=== PATIENT | male | born 1935 | race Caucasian/White ===

== ENCOUNTER 2020-04-22 21:30 | Emergency (ER) | payer MEDICARE, SELFPAY ==
[2020-04-22] VITALS (8 sets, daily range): BP systolic 101–123; BP diastolic 64–68; PULSE 94–98; RESP 16–22; TEMP 37.1–38.7; O2SAT 93–96
--- NOTE | ~2020-04-22 | XR_ITS ---
EXAMINATION: XR chest 1V portable DATE: 04/22/2020 23:03 INDICATION: Fever and chills. TECHNIQUE: A single frontal view of the chest was obtained. COMPARISON: Chest 2 views 07/14/2019, CT abdomen and pelvis 10/31/2019, chest CT 07/14/2019 FINDINGS: There is no pneumonia, pleural effusion, or pneumothorax. Cardiomegaly is noted. Surgical c lips overlie the mediastinum. IMPRESSION: 1. Cardiomegaly. Reviewed, dictated and finalized at location A. IMPRESSION: 1. Cardiomegaly.
--- NOTE | 2020-04-22 22:33 | ED.FEVER ---
HPI - Fever General Chief Complaint: Fever Stated Complaint: Shaking Time Seen by Provider: 04/22/20 22:26 Source: RN notes reviewed History of Present Illness HPI Narrative: Patient presents emergency department from home for shaking. Patient states that this afternoon prior to arrival he began to shake. States is unable to control the shakes and called EMS when EMS initially arrived the patient did not have a fever over the patient did experience a fever in the emergency department. He states he felt fine earlier today he denies any complaints at this time denies any chest pain shortness of breath cough abdominal pain nausea vomiting diarrhea or any other symptoms Related Data Home Medications Medication Instructions Recorded Confirmed amiodarone 200 mg tablet 200 mg PO DAILY 10/03/19 furosemide 40 mg tablet 40 mg PO QAM 10/03/19 insulin glargine 100 unit/mL (3 20 unit SUB-Q DAILY 10/03/19 mL) subcutaneous pen metolazone 2.5 mg tablet 2.5 mg PO DAILY 10/03/19 metoprolol succinate 25 mg 25 mg PO DAILY 10/03/19 tablet,extended release 24 hr insulin glargine [Basaglar KwikPen unit SUBCUT 04/22/20 04/22/20 U-100 Insulin] warfarin 04/22/20 Allergies Allergy/AdvReac Type Severity Reaction Status Date / Time albuterol Allergy Unknown Unknown Verified 04/22/20 22:05 Review of Systems Review of Systems: Narrative: Gen.: see HPI Eyes: Denies eye pain or visual change ENT: Denies congestion Respiratory: Denies shortness of breath or cough CV: Denies chest pain or palpitations GI: Denies abdominal pain nausea, emesis or diarrhea denies burning, urgency, frequency or hematuria Musculoskeletal: Denies back pain or muscle pain Neuro: Denies numbness, tingling, weakness or focal weakness Skin: Denies rash Except as documented, all other systems reviewed and negative [facility] Past Medical History Medical History (Updated 04/23/20 @ 02:22 by Hernán Haywood DO) CHF (congestive heart failure) Chronic kidney disease, stage 4 (severe) Essential (primary) hypertension Surgical History Surgical History History of back surgery Social History Social History Smoking status: Former smoker Alcohol intake: never Exam Narrative: Exam Narrative: APPEARANCE: No acute distress, nontoxic, resting in bed EYES: EOMI HEENT: Normocephalic, atraumatic, OMM RESPIRATORY: No respiratory distress Clear to auscultation bilaterally with no rhonchi wheezing or rales. CARDIOVASCULAR: Regular rate and rhythm without murmurs rubs or gallops. ABDOMINAL: Soft, nontender, nondistended, no rebound or guarding MUSCULOSKELETAl: Moves all extremities. No clubbing, cyanosis or edema. NEURO: Awake and alert. Following commands, speech normal, no focal deficits SKIN:: Warm, dry. 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 Patient with creatinine of 3.2 in 2018 : Discussed with Dr. Mcgee for Dr. Aguilar agrees with plan for discharge with follow-up as an outpatient agrees with plan for COVID swab Discussed with patient results of workup and diagnosis. Discussed need for follow-up with primary care, proper use of medication, and reasons to return to the emergency department. Patient understands and agrees to current treatment plan Vital Signs Vital signs: Vital Signs Temperature 100.5 F H 04/22/20 21:46 Pulse Rate 94 04/22/20 21:46 Respiratory Rate 16 04/22/20 21:46 Blood Pressure 123/68 04/22/20 21:46 Pulse Oximetry 94 04/22/20 21:46 Temperature 98.8 F 04/23/20 00:47 Pulse Rate 96 04/23/20 00:02 Respiratory Rate 14 04/23/20 00:02 Blood Pressure 112/57 L 04/23/20 00:01 Pulse Oximetry 95 04/23/20 00:02 MDM - Fever MDM Narrative Medical decision making narrative: Patient with chills at home developed fever in ER
[2020-04-22 23:01] LABS: Basophils Absolute Auto 0.1 K/mm3 (0.0-0.1); Basophils Percent Auto 0.4 % (0.2-1.2); Eosinophils Absolute Auto 0.1 K/mm3 (0-0.3); Eosinophils Percent Auto 0.8 % (0-4.4); Hematocrit 36.1 % (42.0-52.0); Hemoglobin 11.9 g/dL (14.0-18.0); Immature Granulocyte Absolute 0.07 K/mm3 (0.00-0.031); Immature Granulocyte Percent A 0.5 % (0-0.5); Lymphocytes Absolute Auto 1.41 K/mm3 (0.9-3.2); Lymphocytes Percent Auto 9.8 % (18.3-44.2); Mean Corpuscular Hemoglobin 32.7 pg (26-34); Mean Corpuscular Volume 99.2 fl (80-100); Mean Platelet Volume 10.9 fl (7.4-10.4); Monocytes Percent Auto 7.1 % (2.6-8.5); Neutrophils Absolute Auto 11.7 K/mm3 (1.3-6.7); Neutrophils Percent Auto 81.4 % (45.5-73.1); Platelet Count Result 328 k/mm3 (150-375); Red Blood Count 3.64 M/mm3 (4.6-6.20); Red Cell Distribution Width 14.7 % (11.5-14.5); White Blood Count 14.4 K/mm3 (4.5-10.0)
[2020-04-22 23:12] LABS: INR 2.9; Prothrombin Time 29.8 Seconds (11.1-14.7)
[2020-04-22 23:13] LABS: Lactic Acid Reflex 1.7 mmol/L (0.7-2.1)
[2020-04-22 23:13] LABS: Alanine Aminotransferase 15 U/L (4-50); Albumin Level 4.7 g/dL (3.5-5.1); Alkaline Phosphatase 92 U/L (38-126); Aspartate Amino Transferase 27 U/L (17-59); Bilirubin,Total 0.5 mg/dL (0.2-1.3); Blood Urea Nitrogen 56 mg/dL (9-20); Calcium 9.3 mg/dL (8.4-10.2); Carbon Dioxide 27 mmol/L (22-30); Chloride 99 mmol/L (98-107); Estimated CRCL calculation 19 ml/min; Estimated Glomerular Filt Rate 19; Glucose 154 mg/dL (75-110); Partial Thromboplastin Time 53.3 SECONDS (22.3-36.8); Potassium 3.9 mmol/L (3.4-5.0); Sodium 139 mmol/L (137-145)
--- NOTE | 2020-04-22 23:25 | PC.NURSE ---
Received bedside report from CHACHO Abbott. Assuming care of patient at this time. Patient a/ox3 refusing catheter at this time. Patient unable to provide a urine specimen at this time. Patient given urinal.
[2020-04-22] MEDS: SODIUM CHLORIDE 0.9% IV 1,000 ML 999 ML IV CONT (23:45)
[2020-04-23 00:01] VITALS: BP 112/57; O2SAT 96
[2020-04-23 00:02] VITALS: PULSE 96; RESP 14; O2SAT 95
[2020-04-23 00:47] VITALS: TEMP 37.1
[2020-04-23 00:50] LABS: Add Urine Microscopic? NO; Appearance Urine Clear (Clear); Bilirubin Urine Negative (Negative); Blood Urine Negative (Negative); Color Urine Straw (Yellow); Glucose Urine UA Negative (Negative); Ketones Urine Negative (Negative); Leukocyte Esterase Ur Negative LEU/UL (Negative); Nitrate Urine Negative (Negative); Protein Urine Negative (Negative); Specific Grav Ur 1.013 (1.001-1.035); Urobilinogen Urine Negative mg/dL (<2.0)
[2020-04-23 00:51] LABS: Bacteria Urine Trace /hpf; Mucus Urine Rare /lpf; RBC Urine 0-2 /hpf (0-2); Squamous Epithelial Cell Urine Rare /hpf (Few); WBC Urine 0-3 /hpf
[2020-04-23 02:50] VITALS: BP 105/67; PULSE 80; RESP 16; O2SAT 97
[2020-04-23 09:48] LABS: SARS-CoV-2 RNA PCR Negative
== END 2020-04-23 02:53 | disposition home or self-care (01) ==
PROVIDERS: Emergency Provider Emergency Medicine; PCP Family Medicine
DX: R50.9 Fever, unspecified (principal); Z20.828 Contact with and (suspected) exposure to other viral communicable diseases; I13.0 Hypertensive heart and chronic kidney disease with heart failure and stage 1 through stage 4 chronic kidney disease, or unspecified chronic kidney disease; N18.4 Chronic kidney disease, stage 4 (severe); I50.9 Heart failure, unspecified; Z79.01 Long term (current) use of anticoagulants; Z79.4 Long term (current) use of insulin
CPT/HCPCS: 36415; 71045; 80053; 81003; 83605; 85025; 85610; 85730; 87040; 87635; 96361; 96374; 99284; C9803; J0131; J7030; U0003

== ENCOUNTER 2020-08-28 15:39 | Outpatient (CLI) | payer MEDICARE, SELFPAY ==
--- NOTE | ~2020-08-28 | CT_ITS ---
EXAMINATION: CT chest wo con EXAM DATE: 08/28/2020 16:03 INDICATION: Ascending aortic aneurysm. TECHNIQUE: Spiral CT of the chest without contrast. Axial, coronal and sagittal images were reviewe d. Coronal maximum intensity pixel images of chest reviewed. The dose-length product (DLP) for this examination was 478.72 mGy-cm. The exposure was tailored according to patient size (auto mA exposur e control), and iterative reconstruction (ASIR) was used as additional dose reduction technique. Comp arison is made to prior examination from 07/14/2019. FINDINGS: The ascending aorta measures 4.6 x 4.5 cm as measured at the pulmonary outflow tract, not significantly changed. No suspicious lung opacities. There are no pleural or pericardial effusions. Tracheobronchial tree is patent. There is no mediastinal, hilar or axillary lymphadenopathy. The re is no pneumothorax. Heart normal in size. There are dense coronary arteries, could be severe c oronary arterial sclerosis and/or coronary artery stent(s), which are difficult to distinguish due to cardiac motion on this non-gated exam. Correlate with cardiac history and consider cardiology consul t if not recently evaluated. Lungs are moderately hyperinflated. No acute airspace disease. Multiple renal cysts, hemorrhagic cysts. Cholelithiasis. Upper abdomen is unremarkable. There is mild thora cic spondylosis without osteoblastic or osteolytic lesions identified. IMPRESSION: 1. Stable 4.6 cm ascending aortic aneurysm. 2. Moderate hyperinflation. Reviewed, dictated and finalized at location B.
== END 2020-08-28 15:40 | disposition home or self-care (01) ==
LOC: ANHIMG 15:47
PROVIDERS: PCP Family Medicine; Visit Provider Internal Medicine Cardiovascular Disease
DX: I71.2 Thoracic aortic aneurysm, without rupture (principal); R91.8 Other nonspecific abnormal finding of lung field
CPT/HCPCS: 71250

== ENCOUNTER 2020-10-05 21:07 | Emergency (ER) | payer MEDICARE, SELFPAY ==
--- NOTE | ~2020-10-05 | CT_ITS ---
EXAMINATION: CT abdomen pelvis wo con DATE: 10/05/2020 22:29 INDICATION: Right flank pain TECHNIQUE: Computed tomography (CT) of the abdomen and pelvis was performed without intravenous contr ast. Automated exposure control and iterative reconstruction technique were employed. Exam dose: 110 8.40 mGy-cm total exam DLP. COMPARISON: 10/27/2019 CT abdomen pelvis 10/08/2015 CT abdomen pelvis FINDINGS: The lung bases are clear of consolidation. No pleural effusion. Cardiomegaly. Extensive coronary artery calcifications. No pericardial effusion. Cholelithiasis. No gallbladder wall thickening or pericholecystic fluid or stranding. No hepatic, spl enic, pancreatic or adrenal suspicious mass. Multiple bilateral probable renal cysts, some of higher attenuation, suggesting hemorrhagic or protei naceous content. These are relatively stable since 11/10/2019, with the exception of the uppermost ri ght renal lesion containing some higher attenuation internal density, possibly due to interval hemorr shannan. This is overall is diminished in size since 10/08/2015. Consider CT follow-up examination in 6 months.. There is extensive calcification of the abdominal aorta and calcification at the origins of the geovanna c and superior mesenteric and renal arteries as well as prominent iliac and femoral artery calcificat ion. No abdominal aortic aneurysm. There is prostate enlargement and calcification. The urinary bladder is unremarkable. No urinary trac t calculus or hydroureteronephrosis. Diverticulosis of the colon; no CT evidence of diverticulitis. No bowel obstruction, bowel wall thick ening, pneumatosis or intraperitoneal free air. There is a fat-containing umbilical hernia. Degenerative change of the thoracic and lumbar spine. No suspicious osteolytic or osteoblastic lesion s are noted. IMPRESSION: Cholelithiasis Multiple probably stable bilateral probable renal cysts, not significantly changed since 10/27/2019 ex cept for possible hematoma within an upper pole right renal cyst. Consider [address] abdomen pelvis follow-up. Prostate enlargement and calcification Diverticulosis of the colon; no CT evidence of diverticulitis Reviewed, dictated and finalized at [facility]. Reviewed, dictated and finalized at location A. PING ROOM HELPER IMPRESSION: Cholelithiasis Multiple probably stable bilateral probable renal cysts, not significantly forbes ged since 10/27/2019 except for possible hematoma within an upper pole right yenifer al cyst. Consider [address] abdomen pelvis follow-up. Prostate enlargement and calcification Diverticulosis of the colon; no CT evidence of diverticulitis
[2020-10-05 21:30] VITALS: BP 126/71; PULSE 62; RESP 17; TEMP 36.8; O2SAT 94
--- NOTE | 2020-10-05 21:45 | ED.BACK ---
HPI - Back Pain/Injury General Chief Complaint: Back Pain/Injury Stated Complaint: flank pain Time Seen by Provider: 10/05/20 21:26 History of Present Illness HPI Narrative: right flank pain radiating to the right scapula for the past couple of hours. Made worse by bumps in the car. Was severe, but has improved significantly at this time. No associated symptoms. He has had prior kidney stones, this feels different. No nausea, vomiting, fever, cough, SOB, CP. Related Data Home Medications Medication Instructions Recorded Confirmed amiodarone 200 mg tablet 100 mg PO DAILY tablet 04/27/20 metolazone 2.5 mg tablet 2.5 mg PO .twice weekly tablet 04/27/20 metoprolol succinate 25 mg 25 mg PO Q12H tablet 04/27/20 tablet,extended release 24 hr warfarin 1 mg tablet 6 mg PO tablet 04/27/20 warfarin 1 mg tablet 7 mg PO 3XW tablet 04/27/20 Allergies Allergy/AdvReac Type Severity Reaction Status Date / Time amoxicillin Allergy Mild Rash Verified 04/27/20 13:33 albuterol Allergy Unknown Unknown Verified 04/22/20 22:05 Review of Systems Review of Systems: All systems reviewed & are unremarkable except as noted in HPI and below Constitutional: Constitutional: Denies fever(s) Cardiovascular: Cardiovascular: Denies chest pain Respiratory: Respiratory: Denies cough and Denies dyspnea Gastrointestinal: Gastrointestinal: Denies constipation, Denies diarrhea, Denies nausea and Denies vomiting Genitourinary: Genitourinary: Denies hematuria, Denies dysuria and Reports urinary frequency Neurologic: Denies numbness and Denies weakness [facility] Past Medical History Medical History (Updated 10/06/20 @ 00:11 by Edward Morton MD) CHF (congestive heart failure) Chronic kidney disease, stage 4 (severe) Essential (primary) hypertension Surgical History Surgical History History of back surgery Family History Family History Sibling Diabetes mellitus Mother Family history of Alzheimer's disease Family history of pancreatic cancer Other Family history of kidney stones Social History Social History Smoking status: Never smoker Alcohol intake: never Exam Const: General: no acute distress and alert Orientation/consciousness: patient oriented x3 HENMT: Head: normal to inspection Resp: Effort & Inspection: normal respiratory effort Auscultation: clear to auscultation bilaterally Cardio: Rate: regular rate Rhythm: regular rhythm GI: GI Palp: Yes Soft to palpation and No Tenderness to palpation present (GI) : General: Yes no CVA tenderness Skin: General skin exam: normal color Neuro: General: patient oriented x3 and moves all extremities Speech: normal speech Extrem: General: normal to inspection Course Vital Signs Vital signs: Vital Signs Temperature 36.8 C 10/05/20 21:30 Pulse Rate 62 10/05/20 21:30 Respiratory Rate 17 10/05/20 21:30 Blood Pressure 126/71 10/05/20 21:30 Pulse Oximetry 94 10/05/20 21:30 Temperature 36.8 C 10/05/20 21:30 Pulse Rate 64 10/06/20 00:34 Respiratory Rate 15 10/06/20 00:34 Blood Pressure 130/81 10/06/20 00:34 Pulse Oximetry 95 10/06/20 00:34 MDM - Back Pain/Injury MDM Narrative Medical decision making narrative: Labs at baseline. Stones in gall bladder without other findings to suggest acute disease. Could be the source of pain, but not certain. No other findings to explain his pain Medical Records Attestation: I reviewed the patient's medical records. Lab Data Attestation: I reviewed the patient's lab results. Result diagrams: 10/05/20 22:13 10/05/20 22:13 Labs: Lab Results 10/05/20 10/05/20 10/05/20 Range/Units 22:13 22:13 23:23 WBC 9.0 (4.5-10.0) K/mm3 RBC 3.46 L (4.6-6.20) M/mm3 Hgb 11.6 L
[2020-10-05 22:26] LABS: Basophils Absolute Auto 0.1 K/mm3 (0.0-0.1); Basophils Percent Auto 0.9 % (0.2-1.2); Eosinophils Absolute Auto 0.2 K/mm3 (0-0.3); Hematocrit 34.1 % (42.0-52.0); Hemoglobin 11.6 g/dL (14.0-18.0); Immature Granulocyte Absolute 0.03 K/mm3 (0.00-0.031); Immature Granulocyte Percent A 0.3 % (0-0.5); Lymphocytes Absolute Auto 1.82 K/mm3 (0.9-3.2); Lymphocytes Percent Auto 20.3 % (18.3-44.2); Mean Corpuscular Hemoglobin 33.5 pg (26-34); Mean Corpuscular Volume 98.6 fl (80-100); Mean Platelet Volume 10.2 fl (7.4-10.4); Monocytes Absolute Auto 0.7 K/mm3 (0.1-0.6); Neutrophils Absolute Auto 6.1 K/mm3 (1.3-6.7); Neutrophils Percent Auto 68.5 % (45.5-73.1); Platelet Count Result 315 k/mm3 (150-375); Red Blood Count 3.46 M/mm3 (4.6-6.20); Red Cell Distribution Width 14.7 % (11.5-14.5)
[2020-10-05 22:36] LABS: Alanine Aminotransferase 15 U/L (4-50); Albumin Level 4.4 g/dL (3.5-5.1); Alkaline Phosphatase 85 U/L (38-126); Anion Gap 11 mmol/L (8-16); Aspartate Amino Transferase 29 U/L (17-59); Bilirubin,Total 0.3 mg/dL (0.2-1.3); Blood Urea Nitrogen 51 mg/dL (9-20); Carbon Dioxide 28 mmol/L (22-30); Chloride 102 mmol/L (98-107); Estimated CRCL calculation 21 ml/min; Estimated Glomerular Filt Rate 22; Glucose 122 mg/dL (75-110); Potassium 4.1 mmol/L (3.4-5.0); Sodium 141 mmol/L (137-145)
[2020-10-05 23:59] LABS: Add Urine Microscopic? NO; Appearance Urine Clear (Clear); Bilirubin Urine Negative (Negative); Blood Urine Negative (Negative); Color Urine Straw (Yellow); Glucose Urine UA Negative (Negative); Ketones Urine Negative (Negative); Leukocyte Esterase Ur Negative LEU/UL (Negative); Nitrate Urine Negative (Negative); Protein Urine Negative (Negative); Specific Grav Ur 1.014 (1.001-1.035); Urobilinogen Urine Negative mg/dL (<2.0)
[2020-10-06 00:34] VITALS: BP 130/81; PULSE 64; RESP 15; O2SAT 95
== END 2020-10-06 00:37 | disposition home or self-care (01) ==
PROVIDERS: Emergency Provider Emergency Medicine; PCP Family Medicine
DX: R10.9 Unspecified abdominal pain (principal); N18.4 Chronic kidney disease, stage 4 (severe); I50.9 Heart failure, unspecified; I13.0 Hypertensive heart and chronic kidney disease with heart failure and stage 1 through stage 4 chronic kidney disease, or unspecified chronic kidney disease; Z79.01 Long term (current) use of anticoagulants; K80.20 Calculus of gallbladder without cholecystitis without obstruction; N40.0 Benign prostatic hyperplasia without lower urinary tract symptoms; K57.90 Diverticulosis of intestine, part unspecified, without perforation or abscess without bleeding; N28.1 Cyst of kidney, acquired
CPT/HCPCS: 36415; 74176; 80053; 81003; 85025; 99284

== ENCOUNTER 2020-12-12 07:00 | Observation (INO) | payer MEDICARE, SELFPAY ==
[2020-12-12] VITALS (12 sets, daily range): BP systolic 108–160; BP diastolic 51–79; PULSE 51–70; RESP 12–18; TEMP 36.1–37.1; O2SAT 92–100
--- NOTE | ~2020-12-12 | XR_ITS ---
EXAMINATION: XR chest 1V portable EXAM DATE: 12/12/2020 07:40 INDICATION: Shortness of air, weakness. Lethargic. TECHNIQUE: Portable AP frontal chest x-ray was obtained. Comparison is made to prior examination from 04/22/2020. FINDINGS: There is cardiomegaly and pulmonary vascular congestion. There is indistinct reticulation w ith a bibasal predominance which may indicate pulmonary edema. No confluent consolidation, pneumothor ax or pleural effusion suspected. : There are mild bony degenerative changes. IMPRESSION: Possible mild CHF exacerbation. Reviewed, dictated and finalized at location A. FREIGHT FIRER
--- NOTE | 2020-12-12 07:10 | ECG_ITS ---
Measurements Intervals [place] Rate: 50 P: 241 MD: 167 QRS: 17 QRSD: 160 T: 9 QT: 510 QTc: 468 Interpretive Statements SINUS BRADYCARDIA BORDERLINE AV CONDUCTION DELAY LEFT BUNDLE BRANCH BLOCK BASELINE ARTIFACT- I, II, AVR, AVF ABNORMAL ECG Electronically Signed On 12-12-2020 8:33:10 CONTACT CENTER AGENT by Cody Armenta D.O.
[2020-12-12 07:22] LABS: Basophils Absolute Auto 0.1 K/mm3 (0.0-0.1); Basophils Percent Auto 0.7 % (0.2-1.2); Eosinophils Absolute Auto 0.1 K/mm3 (0-0.3); Eosinophils Percent Auto 1.6 % (0-4.4); Hematocrit 31.7 % (42.0-52.0); Hemoglobin 10.5 g/dL (14.0-18.0); Immature Granulocyte Absolute 0.04 K/mm3 (0.00-0.031); Immature Granulocyte Percent A 0.5 % (0-0.5); Lymphocytes Absolute Auto 2.21 K/mm3 (0.9-3.2); Lymphocytes Percent Auto 27.4 % (18.3-44.2); Mean Corpuscular HGB Conc 33.1 g/dl (32-36); Mean Corpuscular Hemoglobin 32.4 pg (26-34); Mean Corpuscular Volume 97.8 fl (80-100); Mean Platelet Volume 10.5 fl (7.4-10.4); Monocytes Absolute Auto 0.5 K/mm3 (0.1-0.6); Monocytes Percent Auto 6.7 % (2.6-8.5); Neutrophils Absolute Auto 5.1 K/mm3 (1.3-6.7); Neutrophils Percent Auto 63.1 % (45.5-73.1); Platelet Count Result 299 k/mm3 (150-375); Red Blood Count 3.24 M/mm3 (4.6-6.20); Red Cell Distribution Width 13.9 % (11.5-14.5); White Blood Count 8.1 K/mm3 (4.5-10.0)
[2020-12-12 07:33] LABS: Alanine Aminotransferase 16 U/L (4-50); Albumin Level 4.2 g/dL (3.5-5.1); Alkaline Phosphatase 88 U/L (38-126); Anion Gap 12 mmol/L (8-16); Aspartate Amino Transferase 24 U/L (17-59); Bilirubin,Total 0.4 mg/dL (0.2-1.3); Blood Urea Nitrogen 62 mg/dL (9-20); Carbon Dioxide 28 mmol/L (22-30); Chloride 98 mmol/L (98-107); Estimated CRCL calculation 17 ml/min; Estimated Glomerular Filt Rate 17; Glucose 150 mg/dL (75-110); Potassium 4.1 mmol/L (3.4-5.0); Sodium 138 mmol/L (137-145)
[2020-12-12 07:43] LABS: INR 2.7; Prothrombin Time 29.4 Seconds (11.1-14.7)
[2020-12-12 07:51] LABS: NT Pro B Type Natriuretic Pept 806 PG/ML (5-100)
--- NOTE | 2020-12-12 08:03 | ED.WEAKNESS ---
HPI - Weakness General Chief complaint: Weakness Stated complaint: WEAKNESS Time Seen by Provider: 12/12/20 07:04 History of Present Illness HPI Narrative: Patient is an 85-year-old male with history of A. fib and CHF who presents ER with weakness and shortness of breath. Patient was found sitting at the kitchen table doing his morning puzzles slumped over unresponsive. cannot make them up. Daughter arrived at the house and called 911 when she found him slow to respond as well. Patient reports has been short of breath since waking up this morning. He is very sleepy but he is alert and oriented x4. He is having no chest pain or chest pressure. Reports he has had no infectious symptoms over the last few days. Related Data Home Medications Medication Instructions Recorded Confirmed amiodarone 200 mg tablet 100 mg PO DAILY tablet 04/27/20 metolazone 2.5 mg tablet 2.5 mg PO .twice weekly tablet 04/27/20 metoprolol succinate 25 mg 25 mg PO Q12H tablet 04/27/20 tablet,extended release 24 hr warfarin 1 mg tablet 6 mg PO tablet 04/27/20 warfarin 1 mg tablet 7 mg PO 3XW tablet 04/27/20 Allergies Allergy/AdvReac Type Severity Reaction Status Date / Time amoxicillin Allergy Mild Rash Verified 12/12/20 07:33 albuterol Allergy Unknown Unknown Verified 12/12/20 07:33 Review of Systems Review of Systems: All systems reviewed & are unremarkable except as noted in HPI and below Constitutional: Constitutional: Denies chills, Denies fever(s) and Reports weakness ENT: Denies nasal congestion and Denies sore throat Cardiovascular: Cardiovascular: Denies chest pain, Denies rapid heart rate and Denies radiating jaw, neck or arm pain Respiratory: Respiratory: Denies cough, Reports dyspnea and Denies wheezing Gastrointestinal: Gastrointestinal: Denies abdominal pain, Denies nausea and Denies vomiting Neurologic: Denies dizziness, Denies focal weakness and Denies numbness [facility] Past Medical History Medical History (Updated 12/12/20 @ 10:01 by Aroldo Sharp MD) Cancer of kidney CHF (congestive heart failure) Chronic kidney disease, stage 4 (severe) Chronic obstructive pulmonary disease, unspecified Enlarged prostate without lower urinary tract symptoms (luts) Essential (primary) hypertension Gout, unspecified Kidney stones Thoracic aortic aneurysm, without rupture 10-20 CT of chest 4.6 cm Type 2 diabetes mellitus with diabetic neuropathy, unspecified Surgical History Surgical History (Updated 12/12/20 @ 08:11 by Aroldo Sharp MD) History of back surgery Hx of laminectomy T7 Family History Family History Sibling Diabetes mellitus Mother Family history of Alzheimer's disease Family history of pancreatic cancer Other Family history of kidney stones Social History Social History Smoking status: Never smoker Alcohol intake: never Exam Narrative: Exam Narrative: GENERAL: Fatigued-appearing, well-nourished, and in no acute distress. HEAD: Normocephalic, atraumatic. EYES: PERRL and EOMI. CHEST: Clear to auscultation. No respiratory distress. HEART: Bradycardic and regular. Normal peripheral pulses. ABDOMEN: Soft, nontender, nondistended. EXTREMITIES: Normal range of motion. No edema. SKIN: Warm, dry, no rash. NEURO: Alert and oriented x3. Course Course Emergency Course: Patient will be admitted to hospitalist service for heart failure exacerbation. Hopefully with some mild diuresis patient's shortness of breath will improve as well as mental status and renal function. Vital Signs Vital signs: Vital Signs Temperature 97.3 F L 12/12/20 07:00 Pulse Rate 52 L 12/12/20 07:00 Respiratory Rate 18 12/12/20 07:00 Blood Pressure 160/73 H 12/12/20 07:00 Pulse Oximetry 99 12/12/20 07:00 Temperature 97.3 F L 12/12/20 07:00 Pulse Rate 53 L 12/12/20 09
[2020-12-12 08:04] LABS: Add Urine Microscopic? NO; Appearance Urine Clear (Clear); Bilirubin Urine Negative (Negative); Blood Urine Negative (Negative); Color Urine Straw (Yellow); Glucose Urine UA Negative (Negative); Ketones Urine Negative (Negative); Leukocyte Esterase Ur Negative LEU/UL (Negative); Nitrate Urine Negative (Negative); Protein Urine Negative (Negative); Specific Grav Ur 1.015 (1.001-1.035); Urobilinogen Urine Negative mg/dL (<2.0); WBC Urine 0-3 /hpf
[2020-12-12] MEDS: FUROSEMIDE INJ 40 MG/4 ML VIAL IV PUSH (08:52)
--- NOTE | 2020-12-12 10:50 | ADMGEN ---
This patient, Avery Lopez, was admitted to Medical Room 240-. Patient/family oriented to hospital policies and general routines including ID bracelet, bed and alarms, visiting hours, pain management, procedures, bathroom and other care routines, personal items, smoking policy, room service/diet, and visiting hours. Information on how to activate the Rapid Response Team has been discussed. Patient/Family are encouraged to report perceived risks to care and to ask questions if they do not understand what they are told or what they should do.
--- NOTE | 2020-12-12 14:43 | PM.IMHP ---
H&P: HPI History of Present Illness Date/Time: 12/12/20 14:43 Chief Complaint: Generalized weakness Narrative: Avery Lopez is a 85 year old male patient 85-year-old female who lives with his at home with a past medical history of atrial fibrillation on warfarin apparently this morning while doing his routine puzzle after breakfast patient's slumped over and was unresponsive, EMS was called and patient was brought to the emergency department for further evaluation, patient states he feels tired and weak but denies any complaints of chest pain shortness of breath palpitation fever or chills, he denies any cough runny nose or congestion, upon arrival to emergency department patient vitals were normal with temperature 97?.3, pulse 52, respiratory rate of 18, pulse ox 95% at room air, his blood pressure was 160/73, his H&H to his baseline however patient creatinine has risen from 2.8 to 3.4 compared to October 10, 2020 suggesting most likely patient is dehydrated will gently hydrate the patient monitor his kidney function had PT OT evaluate and further recommendation to follow. Review of Systems Review of Systems: All systems reviewed & are unremarkable except as noted in HPI and below PMFSH Past Medical History Medical History (Updated 12/12/20 @ 14:53 by David Harris MD) Cancer of kidney CHF (congestive heart failure) Chronic kidney disease, stage 4 (severe) Chronic obstructive pulmonary disease, unspecified Enlarged prostate without lower urinary tract symptoms (luts) Essential (primary) hypertension Gout, unspecified Kidney stones Thoracic aortic aneurysm, without rupture 10-20 CT of chest 4.6 cm Type 2 diabetes mellitus with diabetic neuropathy, unspecified Surgical History Surgical History (Updated 12/12/20 @ 08:11 by Aroldo Sharp MD) History of back surgery Hx of laminectomy T7 Family History Family History Sibling Diabetes mellitus Mother Family history of Alzheimer's disease Family history of pancreatic cancer Other Family history of kidney stones Social History Social History Smoking status: Never smoker Alcohol intake: former Substance use: former Gender identity (if verbalized by the patient): Male Sexual Orientation (if Verbalized by the Patient): Straight or Heterosexual Spiritual care concerns: Yes Meds Home Medications and Allergies Home Medications Medication Instructions Recorded Confirmed Type finasteride 5 mg tablet 5 mg PO DAILY #90 tablet 01/04/20 12/12/20 Rx amiodarone 200 mg tablet 100 mg PO HS tablet 04/27/20 12/12/20 History doxazosin 2 mg tablet 2 mg PO .qod #90 tablet 04/27/20 12/12/20 Rx metolazone 2.5 mg tablet 2.5 mg PO .twice weekly tablet 04/27/20 12/12/20 History warfarin 1 mg tablet 5 mg PO 2XW tablet 04/27/20 12/12/20 History warfarin 1 mg tablet 6 mg PO DAILY tablet 04/27/20 12/12/20 History insulin glargine 100 unit/mL (3 22 unit SUB-Q DAILY #15 ml 10/15/20 12/12/20 Rx mL) subcutaneous pen allopurinol 100 mg tablet 100 mg PO BID #180 tablet 11/26/20 12/12/20 Rx levothyroxine 112 mcg tablet 112 mcg PO DAILY #90 tablet 11/26/20 12/12/20 Rx furosemide 40 mg PO EVERY OTHER DAY 12/12/20 12/12/20 History furosemide 80 mg PO DAILY 12/12/20 12/12/20 History gabapentin 600 mg PO HS 12/12/20 12/12/20 History metoprolol tartrate 25 mg PO BID 12/12/20 12/12/20 History simvastatin 10 mg PO HS 12/12/20 12/12/20 History Allergies Allergy/AdvReac Type Severity Reaction Status Date / Time amoxicillin Allergy Mild Rash Verified 12/12/20 11:35 albuterol Allergy Unknown Unknown Verified 12/12/20 11:35 Vital Signs Vital Signs - 24 hr 12/12/20 07:00 12/12/20 07:18 12/12/20 07:32 Temperature 97.3 F L Pulse Rate 52 L 51 L 51 L Respiratory Rate 18 15 Blood Pressure 160/73 H 146/67 H Pulse Oximetry 99 95 12/12/20 08:51
[2020-12-12 16:29] LABS: Glucose Point of Care 120 (65-105)
[2020-12-12] MEDS: WARFARIN (*PBKC) 3 MG TABLET 6 MG PO (16:59)
[2020-12-12] MEDS: allopurinoL 100 MG TABLET PO (17:00)
[2020-12-12] MEDS: GABAPENTIN 300 MG CAPSULE 600 MG PO (20:30)
[2020-12-12] MEDS: ACETAMINOPHEN 325 MG TABLET 650 MG PO (20:30)
[2020-12-12] MEDS: AMIODARONE HCL 100 MG TABLET PO (20:31)
[2020-12-12] MEDS: SIMVASTATIN 10 MG TABLET PO (20:31)
[2020-12-12] MEDS: METOPROLOL TARTRATE 25 MG TABLET PO (20:31)
[2020-12-12] MEDS: DOXAZOSIN MESYLATE 2 MG TABLET PO (20:32)
[2020-12-12 21:51] LABS: Glucose Point of Care 161 (65-105)
[2020-12-13 02:00] VITALS: BP 115/50; PULSE 56; RESP 16; TEMP 36.7; O2SAT 93
[2020-12-13 04:54] VITALS: BP 108/55; PULSE 60; RESP 16; TEMP 36.9; O2SAT 98
[2020-12-13 05:29] LABS: Hematocrit 32.2 % (42.0-52.0); Hemoglobin 10.7 g/dL (14.0-18.0); Mean Corpuscular HGB Conc 33.2 g/dl (32-36); Mean Corpuscular Hemoglobin 32.3 pg (26-34); Mean Corpuscular Volume 97.3 fl (80-100); Mean Platelet Volume 10.5 fl (7.4-10.4); Platelet Count Result 324 k/mm3 (150-375); Red Blood Count 3.31 M/mm3 (4.6-6.20); Red Cell Distribution Width 13.9 % (11.5-14.5); White Blood Count 9.2 K/mm3 (4.5-10.0)
[2020-12-13 05:42] LABS: Magnesium 2.3 mg/dL (1.6-2.3); Prothrombin Time 31.3 Seconds (11.1-14.7)
[2020-12-13] MEDS: LEVOTHYROXINE SODIUM 112 MCG TABLET PO (06:17)
[2020-12-13 07:42] LABS: Glucose Point of Care 130 (65-105)
[2020-12-13] MEDS: allopurinoL 100 MG TABLET PO (08:00)
[2020-12-13] MEDS: FINASTERIDE 5 MG TABLET PO (08:00)
[2020-12-13] MEDS: INSULIN GLARGINE (*BKC) 100 UNITS/ML 22 UNITS SUB-Q (08:07)
[2020-12-13 08:31] LABS: Anion Gap 11 mmol/L (8-16); Blood Urea Nitrogen 60 mg/dL (9-20); Calcium 8.8 mg/dL (8.4-10.2); Carbon Dioxide 27 mmol/L (22-30); Chloride 99 mmol/L (98-107); Estimated CRCL calculation 19 ml/min; Estimated Glomerular Filt Rate 20; Glucose 125 mg/dL (75-110); Sodium 137 mmol/L (137-145)
[2020-12-13 10:00] VITALS: BP 112/56; PULSE 57; RESP 17; TEMP 36.6; O2SAT 99
[2020-12-13 10:25] VITALS: PULSE 63
[2020-12-13] MEDS: METOPROLOL TARTRATE 25 MG TABLET PO (10:25)
[2020-12-13 11:12] VITALS: PULSE 63
[2020-12-13] MEDS: AMIODARONE HCL 100 MG TABLET PO (11:12)
[2020-12-13] MEDS: GABAPENTIN 300 MG CAPSULE PO (11:12)
--- NOTE | 2020-12-13 11:21 | PM.DS ---
DS: Admitting Diagnosis Admitting Diagnosis Admitting Diagnosis: Chief Complaint: Generalized weakness DS: Discharge Diagnosis Discharge Diagnosis (1) Weakness: Code(s): R53.1 - Weakness Status: Acute Assessment and Plan: Avery Lopez is a 85 year old male patient 85-year-old female who lives with his at home with a past medical history of atrial fibrillation on warfarin apparently this morning while doing his routine puzzle after breakfast patient's slumped over and was unresponsive, EMS was called and patient was brought to the emergency department for further evaluation, patient states he feels tired and weak but denies any complaints of chest pain shortness of breath palpitation fever or chills, he denies any cough runny nose or congestion, upon arrival to emergency department patient vitals were normal with temperature 97?.3, pulse 52, respiratory rate of 18, pulse ox 95% at room air, his blood pressure was 160/73, his H&H to his baseline however patient creatinine has risen from 2.8 to 3.4 compared to October 10, 2020 suggesting most likely patient is dehydrated will gently hydrate the patient monitor his kidney function had PT OT evaluate and further recommendation to follow. (2) Type 2 diabetes mellitus with diabetic neuropathy, unspecified: Code(s): E11.40 - Type 2 diabetes mellitus with diabetic neuropathy, unspecified Status: Acute Assessment and Plan: Will continue home regimen and monitor (3) CHF (congestive heart failure): Code(s): I50.9 - Heart failure, unspecified Status: Acute Assessment and Plan: Patient appears euvolemic (4) Atrial fibrillation: Code(s): I48.91 - Unspecified atrial fibrillation Status: Acute Assessment and Plan: Rate is controlled patient anticoagulated with warfarin INR is therapeutic will monitor DS: Summary Hospital Course Reason for hospitalization: Chief Complaint: Generalized weakness Narrative: Avery Lopez is a 85 year old male patient 85-year-old female who lives with his at home with a past medical history of atrial fibrillation on warfarin apparently this morning while doing his routine puzzle after breakfast patient's slumped over and was unresponsive, EMS was called and patient was brought to the emergency department for further evaluation, patient states he feels tired and weak but denies any complaints of chest pain shortness of breath palpitation fever or chills, he denies any cough runny nose or congestion, upon arrival to emergency department patient vitals were normal with temperature 97?.3, pulse 52, respiratory rate of 18, pulse ox 95% at room air, his blood pressure was 160/73, his H&H to his baseline however patient creatinine has risen from 2.8 to 3.4 compared to October 10, 2020 suggesting most likely patient is dehydrated will gently hydrate the patient monitor his kidney function had PT OT evaluate and further recommendation to follow. Hospital Course: Patient was dehydrated gently hydrated remained clinically stable, held his lasix will discharge the patient today Status at Discharge Functional status at discharge: uses cane/walker Overall status at discharge: patient is back to baseline Time Spent with Patient Time attestation: Total time spent providing and/or coordinating discharge services: Patient was seen and examined at the time of the discharge Condition at discharge is stable Code status: Full code. Time spent preparing discharge summary, discharge medications, discussing discharge planning with case supervisor and patient is 35 minutes. Time spent: Greater than 30 minutes Exam Narrative: Exam Narrative: Moderately obese Patient is comfortable, NAD HEENT: eyes are clear and none icteric LUNGS:CTA HEART: Irregularly irregular ABD: BS+, Soft and nontender Lower extremities: no edema SKIN: nonjaundiced Neuro: grossly intact. DS: Data Data Completed and Pending Labs on day
== END 2020-12-13 12:00 | disposition home or self-care (01) ==
LOC: ANHED 10:01 → ANH2MED 10:39
PROVIDERS: Admitting Provider Family Medicine; Emergency Provider Emergency Medicine; PCP Family Medicine; Visit Provider Family Medicine
DX: R53.1 Weakness (principal); I13.0 Hypertensive heart and chronic kidney disease with heart failure and stage 1 through stage 4 chronic kidney disease, or unspecified chronic kidney disease; I50.9 Heart failure, unspecified; R06.02 Shortness of breath; I48.91 Unspecified atrial fibrillation; N18.4 Chronic kidney disease, stage 4 (severe); N40.0 Benign prostatic hyperplasia without lower urinary tract symptoms; M10.9 Gout, unspecified; I71.2 Thoracic aortic aneurysm, without rupture; E11.40 Type 2 diabetes mellitus with diabetic neuropathy, unspecified; E11.22 Type 2 diabetes mellitus with diabetic chronic kidney disease; Z85.528 Personal history of other malignant neoplasm of kidney; Z79.01 Long term (current) use of anticoagulants; Z79.4 Long term (current) use of insulin
CPT/HCPCS: 36415; 51701; 71045; 80048; 80053; 81003; 83735; 83880; 85025; 85027; 85610; 85730; 93005; 96374; 99285; A9270; G0378; J1815; J1940

== ENCOUNTER 2021-04-01 15:26 | Outpatient (CLI) | payer MEDICARE, SELFPAY ==
--- NOTE | ~2021-04-01 | XR_ITS ---
XR ankle LT min 3V DATE: 04/01/2021 15:47 INDICATION: Left ankle pain TECHNIQUE: 5 views COMPARISON: None FINDINGS: There is anterior and posterior tibial and dorsalis pedis artery calcification. There is mild generalized soft tissue swelling of the ankle. Mild diffuse osteopenia. No recent fracture or dislocation of the ankle or disruption of the ankle mortise. No periosteal reac tion or bone destruction. Plantar and posterior calcaneal enthesopathy. IMPRESSION: Nonspecific generalized soft tissue swelling Plantar and posterior calcaneal enthesopathy Arterial calcifications Reviewed, dictated and finalized at location A.
== END 2021-04-01 15:27 | disposition home or self-care (01) ==
PROVIDERS: PCP Family Medicine; Visit Provider Physician Assistant
DX: M25.572 Pain in left ankle and joints of left foot (principal); M79.89 Other specified soft tissue disorders; M77.32 Calcaneal spur, left foot; I70.202 Unspecified atherosclerosis of native arteries of extremities, left leg
CPT/HCPCS: 73610

== ENCOUNTER 2021-08-21 14:00 | Outpatient (CLI) | payer MEDICARE, SELFPAY ==
--- NOTE | ~2021-08-21 | XR_ITS ---
XR chest 2V DATE: 08/21/2021 14:18 INDICATION: Amiodarone therapy TECHNIQUE: PA and lateral views COMPARISON: 12/12/2020 portable AP chest FINDINGS: Heart size appears within normal range. Is aortic calcification, ectasia and tortuosity. No pulmonary infiltrate or consolidation, pleural effusion or pulmonary vascular congestion or pneumo thorax. Dextroscoliosis of the thoracic spine. Diffuse osteopenia. IMPRESSION: No active cardiopulmonary disease Aortic calcification, ectasia and tortuosity Reviewed, dictated and finalized at location B.
== END 2021-08-21 14:01 | disposition home or self-care (01) ==
LOC: ANHIMG 14:05
PROVIDERS: PCP Family Medicine; Visit Provider Internal Medicine Cardiovascular Disease
DX: I50.32 Chronic diastolic (congestive) heart failure (principal); Z79.899 Other long term (current) drug therapy; Z51.81 Encounter for therapeutic drug level monitoring; I71.2 Thoracic aortic aneurysm, without rupture
CPT/HCPCS: 71046

== ENCOUNTER 2021-11-14 22:42 | Inpatient (IN) | payer MEDICARE, SELFPAY ==
--- NOTE | ~2021-11-14 | XR_ITS ---
XR chest 1V portable DATE: 11/17/2021 12:47 INDICATION: Pneumonia TECHNIQUE: Portable upright AP chest on 11/17/2021 at 1241 hours COMPARISON: 11/14/2021 portable AP chest FINDINGS: Cardiac megaly. Aortic calcification, ectasia and unfolding. There is widening of the right superior mediastinum, likely due to tortuous great vessels. Mild infiltrate or atelectasis is suggested in the left lower lobe and to a lesser extent right lung base. No pleural effusion or pulmonary vascular congestion or pneumothorax. Diffuse osteopenia. Dextroscoliosis of the thoracic spine. IMPRESSION: Mild patchy infiltrate or atelectasis in the left lower lobe and to a lesser extent right lung base is suggested Cardiomegaly Aortic atherosclerosis Osteopenia Reviewed, dictated and finalized at location A. GAGE COUNSELOR
--- NOTE | ~2021-11-14 | US_ITS ---
EXAMINATION: US renal BI DATE: 11/15/2021 09:06 INDICATION: Acute renal insufficiency TECHNIQUE: Multiple ultrasound grayscale images of the kidneys were obtained. COMPARISON: Ultrasound dated 04/23/[address] dated 10/05/2020 FINDINGS: The right kidney measures 11.3 x 5.8 x 6.4 cm. The left kidney measures 12.6 x 6.4 x 5.3 cm. The kidn eys demonstrate normal echogenicity. There multiple bilateral anechoic renal cysts, the largest 2 are exophytic cyst along the medial right kidney measuring 5.5 and 5.4 cm in maximal diameters. The larg est exophytic lesion at the lower pole of the left kidney appears partially cystic but with hypoechoi c likely solid components along the deep aspect of the lesions which corresponds to the presence of a couple enhancing exophytic cystic masses measuring up to 2 cm 2.6 cm at the time of a prior MRI date d 10/27/2014 consistent with renal cell carcinoma. There is no hydronephrosis in either kidney. No st ones identified. The bladder is normal. IMPRESSION: 1. 3.2 cm mixed solid and cystic exophytic mass at the lower pole the left kidney increased from 2.6 cm at the time of prior MRI dated 10/27/2014 which as previously described would be most consistent w ith renal cell carcinoma. 2. Multiple bilateral anechoic renal cysts. No hydronephrosis. Reviewed, dictated and finalized at [facility]. ONAL CARE ASSISTANT IMPRESSION: 1. 3.2 cm mixed solid and cystic exophytic mass at the lower pole the left kid janina increased from 2.6 cm at the time of prior MRI dated 10/27/2014 which as pre viously described would be most consistent with renal cell carcinoma. 2. Multiple bilateral anechoic renal cysts. No hydronephrosis.
--- NOTE | ~2021-11-14 | XR_ITS ---
EXAMINATION: XR chest 1V portable DATE: 11/14/2021 23:03 INDICATION: Shortness of breath, cough and fever TECHNIQUE: frontal view of the chest was obtained. COMPARISON: Chest radiograph dated 08/21/2021 FINDINGS: Opacities in the right lower lung zone which could represent atelectasis and/or pneumonia. Left lung is clear. No pleural effusion or pneumothorax. Cardiomegaly. IMPRESSION: 1. Opacities in the right lower lung zone which could represent atelectasis and/or pneumonia. 2. Cardiomegaly. Reviewed, dictated and finalized at location H. RA STORAGE CLERK IMPRESSION: 1. Opacities in the right lower lung zone which could represent atelectasis and /or pneumonia. 2. Cardiomegaly.
[2021-11-14 22:38] VITALS: BP 149/66; PULSE 89; RESP 18; TEMP 38.1; O2SAT 100
--- NOTE | 2021-11-14 22:46 | ECG_ITS ---
Measurements Intervals [place] Rate: 86 P: 57 MA: 213 QRS: 4 QRSD: 141 T: 181 QT: 402 QTc: 481 Interpretive Statements SINUS RHYTHM WITH FIRST DEGREE AV BLOCK LEFT BUNDLE BRANCH BLOCK BASELINE ARTIFACT- I, II, III, AVR, AVL, AVF, V1-V6 ABNORMAL ECG Electronically Signed On 11-15-2021 8:29:10 ARABIC PROFESSOR by Cody Armenta D.O.
--- NOTE | 2021-11-14 22:54 | ED.FEVER ---
HPI - Fever General Chief Complaint: Fever Stated Complaint: chills/tremors Time Seen by Provider: 11/14/21 22:47 Source: patient Mode of arrival: EMS Limitations: no limitations History of Present Illness HPI Narrative: Patient is an 86-year-old male complaining of fever and chills that started tonight. Patient denies any headache, chest pain, shortness of breath, abdominal pain, nausea, vomiting, urinary symptoms or rash. Patient does admit to being short of breath only when he has the chills but currently denies any. Related Data Home Medications Medication Instructions Recorded Confirmed amiodarone 200 mg tablet 100 mg PO QAM tablet 04/27/20 10/24/21 metolazone 2.5 mg tablet 2.5 mg PO .twice weekly tablet 04/27/20 10/24/21 warfarin 1 mg tablet 5 mg PO 2XW tablet 04/27/20 10/24/21 warfarin 1 mg tablet 6 mg PO DAILY tablet 04/27/20 10/24/21 furosemide 40 mg PO EVERY OTHER DAY 12/12/20 10/24/21 gabapentin 300 mg capsule 300 mg PO TID cap 10/22/21 10/22/21 metoprolol succinate 25 mg 25 mg PO DAILY 10/22/21 10/22/21 tablet,extended release 24 hr Allergies Allergy/AdvReac Type Severity Reaction Status Date / Time amoxicillin Allergy Mild Rash Verified 10/22/21 10:11 albuterol Allergy Unknown Unknown Verified 10/22/21 10:11 Review of Systems Review of Systems: All systems reviewed & are unremarkable except as noted in HPI and below Constitutional: Constitutional: Denies excessive sweating, Denies fatigue, Denies headache(s), Denies lethargy, Denies malaise, Denies weakness and Denies weight loss Eyes: Eyes: Denies blurry vision, Denies change in vision and Denies loss of vision ENT: Denies dizziness, Denies ear discharge, Denies headache(s), Denies lip swelling, Denies epistaxis, Denies nasal congestion, Denies neck pain, Denies throat swelling and Denies tongue swelling Cardiovascular: Cardiovascular: Denies chest pain, Denies chest pain at rest, Denies chest pain with activity, Denies diaphoresis, Denies rapid heart rate, Denies edema, Denies irregular heart rhythm, Denies lightheadedness, Denies palpitations, Denies dyspnea and Denies dyspnea on exertion Respiratory: Respiratory: Denies chest congestion, Denies cough, Denies hemoptysis, Denies dyspnea and Denies dyspnea on exertion Gastrointestinal: Gastrointestinal: Denies abdominal pain, Denies melena, Denies hematochezia, Denies diarrhea, Denies nausea, Denies vomiting and Denies hematemesis Musculoskeletal: Musculoskeletal: Denies abnormal gait, Denies deformity, Denies joint swelling, Denies limited range of motion, Denies neck pain and Denies numbness Neurologic: Denies Abnormal speech present, Denies abnormal gait, Denies confusion, Denies dizziness, Denies headache(s), Denies focal weakness, Denies loss of vision, Denies numbness, Denies Other visual disturbances, Denies Sensory deficit (Neuro) and Denies weakness Psychiatric: Psychiatric: Denies confusion, Denies depression, Denies auditory hallucinations, Denies homicidal ideation and Denies suicidal ideation Endocrine: Endocrine: Denies cold intolerance, Denies excessive sweating, Denies fatigue, Denies heat intolerance and Denies palpitations Hematologic/Lymphatic: Hematologic/Lymphatic: Denies easy bleeding and Denies easy bruising Allergic/Immunologic: Allergic/Immunologic: Denies lip swelling, Denies throat swelling and Denies tongue swelling PMFSH Past Medical History Medical History Cancer of kidney CHF (congestive heart failure) Chronic kidney disease, stage 4 (severe) Chronic obstructive pulmonary disease, unspecified Enlarged prostate without lower urinary tract symptoms (luts) Essential (primary) hypertension Gout, unspecified Kidney stones Thoracic aortic aneurysm, without rupture 10-20 CT of chest 4.6 cm Type 2 diabetes mellitus with diabetic neuropathy, unspecified Surgical History Surgical History (Reviewed 11/14/21 @ 23:01 by Gail
[2021-11-14 23:16] VITALS: RESP 18; O2SAT 95
[2021-11-14 23:18] LABS: INR 1.9; Prothrombin Time 21.7 Seconds (11.1-14.7)
[2021-11-14 23:19] LABS: Partial Thromboplastin Time 41.2 SECONDS (22.3-36.8)
[2021-11-14 23:21] LABS: Lactic Acid Reflex 2.4 mmol/L (0.7-2.1)
[2021-11-14 23:23] LABS: Alanine Aminotransferase 14 U/L (4-50); Albumin Level 4.6 g/dL (3.5-5.1); Alkaline Phosphatase 82 U/L (38-126); Anion Gap 12 mmol/L (8-16); Aspartate Amino Transferase 26 U/L (17-59); Bilirubin,Total 0.3 mg/dL (0.2-1.3); Blood Urea Nitrogen 64 mg/dL (9-20); CRP 1.1 mg/dL (<1.0); Calcium 9.2 mg/dL (8.4-10.2); Carbon Dioxide 27 mmol/L (22-30); Chloride 97 mmol/L (98-107); Estimated CRCL calculation 15 ml/min; Estimated Glomerular Filt Rate 15; Glucose 151 mg/dL (65-110); Potassium 3.8 mmol/L (3.4-5.0); Sodium 136 mmol/L (137-145)
[2021-11-14 23:25] LABS: Basophils Absolute Auto 0.1 K/mm3 (0.0-0.1); Basophils Percent Auto 0.4 % (0.2-1.2); Eosinophils Absolute Auto 0.1 K/mm3 (0-0.3); Eosinophils Percent Auto 0.8 % (0-4.4); Hematocrit 34.3 % (42.0-52.0); Hemoglobin 11.6 g/dL (14.0-18.0); Immature Granulocyte Absolute 0.07 K/mm3 (0.00-0.031); Immature Granulocyte Percent A 0.5 % (0-0.5); Lymphocytes Absolute Auto 1.47 K/mm3 (0.9-3.2); Lymphocytes Percent Auto 11.5 % (18.3-44.2); Mean Corpuscular HGB Conc 33.8 g/dl (32-36); Mean Corpuscular Hemoglobin 32.4 pg (26-34); Mean Corpuscular Volume 95.8 fl (80-100); Mean Platelet Volume 10.5 fl (7.4-10.4); Monocytes Percent Auto 7.8 % (2.6-8.5); Neutrophils Absolute Auto 10.1 K/mm3 (1.3-6.7); Platelet Count Result 302 k/mm3 (150-375); Red Blood Count 3.58 M/mm3 (4.6-6.20); Red Cell Distribution Width 13.2 % (11.5-14.5); White Blood Count 12.8 K/mm3 (4.5-10.0)
[2021-11-14 23:36] LABS: EDCOVIDSCREEN Negative (Negative)
[2021-11-14] MEDS: ACETAMINOPHEN 325 MG TABLET 650 MG PO (23:59)
[2021-11-15] VITALS (14 sets, daily range): BP systolic 105–126; BP diastolic 49–68; PULSE 63–97; RESP 16–20; TEMP 36.4–37.7; O2SAT 91–98; BMI 33.0
[2021-11-15] MEDS: LACTATED RINGERS 1,000 ML 250 ML IV CONT
--- NOTE | 2021-11-15 | ECHO_ITS ---
Patient Info Name: Avery Lopez Age: 86 years : 1935 Gender: Male Ht: 70 in Wt: 230 lbs BSA: 2.30 m2 HR: 68 bpm BP: 106 / 58 mmHg Heart Rhythm: Sinus Rhythm Exam Date: 11/15/2021 12:01 PM Exam Location: [facility] Patient Status: Inpatient Admit Date: 11/15/2021 Staff Ordering Physician: Aj Pearson MD Member Of Technical Staff: Sagar Turner RDCS, RT Attending Provider: Mayank Meza MD Exam Type: CA echo doppler color flow Study Info Indications I50.9 - Heart failure, unspecified Complete two-dimensional, color flow and Doppler transthoracic echocardiogram is performed. Summary 1. Complete two-dimensional, color flow and Doppler transthoracic echocardiogram is performed. 2. Left ventricular chamber dimension is normal. 3. Left ventricular systolic function is normal, estimated at 65-70%. 4. There is moderately increased left ventricular wall thickness. 5. The left ventricular diastolic function is grade II diastolic dysfunction. 6. Left atrial chamber dimension is moderately enlarged. 7. There is moderate aortic valve stenosis with a peak velocity of 231 cm/s, mean gradient of 12 mmHg, and aortic valve area of 1.2 cm2. 8. There is moderate aortic valve calcification. 9. The mitral valve has calcified leaflets and calcified annulus. 10. There is moderate mitral valve regurgitation. 11. There is mild tricuspid valve regurgitation. 12. Mild pulmonary hypertension, estimated pulmonary arterial systolic pressure is 35 mmHg. 13. There is mild pulmonic regurgitation. Left Ventricle Left ventricular chamber dimension is normal. Left ventricular systolic function is normal, estimated at 65-70%. There is moderately increased left ventricular wall thickness. The left ventricular diastolic function is grade II diastolic dysfunction. Right Ventricle Right ventricular chamber dimension is normal. Right ventricular systolic function is normal. Left Atria Left atrial chamber dimension is moderately enlarged. Right Atria Right atrial chamber dimension is normal. Atrial Septum Intact interatrial septum visualized by color flow imaging. Aortic Valve The aortic valve is trileaflet. There is moderate aortic valve stenosis with a peak velocity of 231 cm/s, mean gradient of 12 mmHg, and aortic valve area of 1.2 cm2. There is trace aortic valve regurgitation. There is moderate aortic valve calcification. Pulmonic Valve The pulmonic valve is normal. There is no pulmonic valve stenosis. There is mild pulmonic regurgitation. Mitral Valve The mitral valve has calcified leaflets and calcified annulus. There is no mitral valve stenosis. There is moderate mitral valve regurgitation. Tricuspid Valve The tricuspid valve leaflets are normal. There is no significant tricuspid valve stenosis. There is mild tricuspid valve regurgitation. Mild pulmonary hypertension, estimated pulmonary arterial systolic pressure is 35 mmHg. Pericardium/Pleural The pericardium appears normal. Inferior Vena Cava Dilated inferior vena cava with >50% collapse upon inspiration consistent with elevated right atrial pressure, 10 mmHg. Aorta The aortic root size at the sinus of Valsalva is mildly dilated. Left Ventricular Outflow Tract Name Value Normal LVOT 2D
[2021-11-15 00:05] LABS: Add Urine Microscopic? NO; Appearance Urine Clear (Clear); Bilirubin Urine Negative (Negative); Blood Urine Negative (Negative); Color Urine Straw (Yellow); Glucose Urine UA Negative (Negative); Ketones Urine Negative (Negative); Leukocyte Esterase Ur Negative LEU/UL (Negative); Nitrate Urine Negative (Negative); Protein Urine Negative (Negative); Specific Grav Ur 1.011 (1.001-1.035); Urobilinogen Urine Negative mg/dL (<2.0)
[2021-11-15] MEDS: LACTATED RINGERS 1,000 ML 75 ML IV CONT ×2 (00:31→07:27)
--- NOTE | 2021-11-15 00:38 | PM.IMHP ---
H&P: HPI History of Present Illness Date/Time: 11/15/21 00:38 Chief Complaint: Chills Narrative: This is an 86-year-old male with past medical history significant for chronic kidney disease, hypertension, type 2 diabetes mellitus, thoracic aortic aneurysm, gout, kidney stones, benign prostatic hyperplasia, chronic obstructive pulmonary disease. Patient presented to the emergency room due to rigors diarrhea started earlier in the day patient tried various things at home but with no success and decided to come for evaluation. Patient states that he has been his usual state of health, he started having rigors and chills but he denies any cough, any shortness of breath, any sputum production, no chest pain, no palpitations, no lightheadedness ,no dizziness, no leg swelling ,no calf pain, no nausea, no vomiting, he states that he does not have an appetite. In emergency room patient was found to have on a chest x-ray opacities, creatinine of 3.9. Patient has been admitted for further evaluation, management and treatment. Review of Systems Review of Systems: Rigors, chills ,poor appetite. Constitutional: Constitutional: Reports chills, Denies malaise, Denies night sweats, Reports poor appetite and Denies weakness Eyes: Eyes: Denies change in vision ENT: Denies dysphagia, Denies nasal congestion, Denies nasal discharge, Denies nasal obstruction and Denies odynophagia Cardiovascular: Cardiovascular: Denies leg edema, Denies lightheadedness, Denies radiating jaw, neck or arm pain, Denies palpitations, Denies dyspnea on exertion and Denies orthopnea Respiratory: Respiratory: Denies cough and Denies dyspnea Gastrointestinal: Gastrointestinal: Denies abdominal pain, Denies dyspepsia, Denies heartburn, Denies diarrhea, Denies nausea and Denies vomiting Genitourinary: Genitourinary: Denies dysuria Musculoskeletal: Musculoskeletal: Denies arthralgias, Denies joint swelling and Denies muscle weakness Integumentary/Breasts: Skin/Breast: Denies rash Neurologic: Denies focal weakness and Denies Sensory deficit (Neuro) Psychiatric: Psychiatric: Reports no additional psychiatric complaints and Reports as per HPI Endocrine: Endocrine: Denies polyphagia, Denies polydipsia, Denies polyuria and Denies palpitations Hematologic/Lymphatic: Hematologic/Lymphatic: Reports no additional hematologic/lymphatic complaints and Reports as per HPI Allergic/Immunologic: Allergic/Immunologic: Reports no additional allergic/immunologic complaints and Reports as per HPI [facility] Past Medical History Medical History Cancer of kidney CHF (congestive heart failure) Chronic kidney disease, stage 4 (severe) Chronic obstructive pulmonary disease, unspecified Enlarged prostate without lower urinary tract symptoms (luts) Essential (primary) hypertension Gout, unspecified Kidney stones Thoracic aortic aneurysm, without rupture 10-20 CT of chest 4.6 cm Type 2 diabetes mellitus with diabetic neuropathy, unspecified Surgical History Surgical History History of back surgery Hx of laminectomy T7 Family History Family History Sibling Diabetes mellitus Mother Family history of Alzheimer's disease Family history of pancreatic cancer Other Family history of kidney stones Social History Social History Smoking status: Former smoker Tobacco type: cigarettes Alcohol intake: never Substance use: never Substance use type: does not use Gender identity (if verbalized by the patient): Male Sexual Orientation (if Verbalized by the Patient): Straight or Heterosexual Spiritual care concerns: No Meds Home Medications and Allergies Home Medications Medication Instructions Recorded Confirmed Type amiodarone 200 mg tablet 100 mg PO QAM
--- NOTE | 2021-11-15 01:32 | ADMGEN ---
This patient, Avery Lopez, was admitted to Medical Room 258-. Patient/family oriented to hospital policies and general routines including ID bracelet, bed and alarms, visiting hours, pain management, procedures, bathroom and other care routines, personal items, smoking policy, room service/diet, and visiting hours. Information on how to activate the Rapid Response Team has been discussed. Patient/Family are encouraged to report perceived risks to care and to ask questions if they do not understand what they are told or what they should do.
[2021-11-15 02:05] LABS: Reflex Lactic Acid Yes or No Add Lactic
[2021-11-15 02:30] LABS: Lactic Acid 2.9 mmol/L (0.7-2.1)
[2021-11-15] MEDS: LEVOTHYROXINE SODIUM 112 MCG TABLET PO (05:34)
[2021-11-15 08:21] LABS: Glucose Point of Care 119 mg/dl (65-105)
[2021-11-15 08:33] LABS: Basophils Percent Auto 0.3 % (0.2-1.2); Eosinophils Absolute Auto 0.1 K/mm3 (0-0.3); Eosinophils Percent Auto 0.6 % (0-4.4); Hematocrit 31.8 % (42.0-52.0); Hemoglobin 10.5 g/dL (14.0-18.0); Immature Granulocyte Absolute 0.07 K/mm3 (0.00-0.031); Immature Granulocyte Percent A 0.6 % (0-0.5); Lymphocytes Absolute Auto 1.93 K/mm3 (0.9-3.2); Lymphocytes Percent Auto 15.7 % (18.3-44.2); Mean Corpuscular Hemoglobin 31.6 pg (26-34); Mean Corpuscular Volume 95.8 fl (80-100); Mean Platelet Volume 10.3 fl (7.4-10.4); Monocytes Absolute Auto 0.9 K/mm3 (0.1-0.6); Monocytes Percent Auto 7.6 % (2.6-8.5); Neutrophils Absolute Auto 9.3 K/mm3 (1.3-6.7); Neutrophils Percent Auto 75.2 % (45.5-73.1); Platelet Count Result 273 k/mm3 (150-375); Red Blood Count 3.32 M/mm3 (4.6-6.20); Red Cell Distribution Width 13.2 % (11.5-14.5); White Blood Count 12.3 K/mm3 (4.5-10.0)
[2021-11-15 08:41] LABS: Lactic Acid Reflex 1.9 mmol/L (0.7-2.1)
[2021-11-15 08:46] LABS: Albumin Level 4.1 g/dL (3.5-5.1); Anion Gap 8 mmol/L (8-16); Blood Urea Nitrogen 59 mg/dL (9-20); CRP 5.3 mg/dL (<1.0); Calcium 8.7 mg/dL (8.4-10.2); Carbon Dioxide 29 mmol/L (22-30); Chloride 97 mmol/L (98-107); Estimated CRCL calculation 16 ml/min; Estimated Glomerular Filt Rate 16; Glucose 123 mg/dL (65-110); Phosphorus 4.1 mg/dL (2.5-4.5); Potassium 3.4 mmol/L (3.4-5.0); Sodium 134 mmol/L (137-145)
[2021-11-15] MEDS: FINASTERIDE 5 MG TABLET PO (09:42)
[2021-11-15] MEDS: METOPROLOL SUCCINATE EXT REL 25 MG TABCR PO (09:42)
[2021-11-15] MEDS: AMIODARONE HCL 100 MG TABLET PO (09:42)
[2021-11-15] MEDS: GABAPENTIN 300 MG CAPSULE PO ×2 (09:42→17:08)
[2021-11-15] MEDS: DOXAZOSIN MESYLATE 2 MG TABLET PO (09:42)
[2021-11-15] MEDS: INSULIN GLARGINE (*BKC) 100 UNITS/ML 10 UNITS SUB-Q (09:44)
[2021-11-15 12:14] LABS: Glucose Point of Care 125 mg/dl (65-105)
--- NOTE | 2021-11-15 13:02 | PM.IMPN ---
Progress Note: A&P Assessment and Plan (1) Sepsis: Code(s): A41.9 - Sepsis, unspecified organism Status: Acute Assessment and Plan: Sepsis present on admission with lactic acidosis, low-grade fever, elevated white count and shaking chills. Etiology is probably pneumonia. Lactic acid level is normal now. Fever curve has improved. White count about the same but CRP now 5.3. No further chills. Follow up on blood cultures. (2) Pneumonia: Qualifiers: Laterality: right Lung location: lower lobe of lung Pneumonia type: due to unspecified organism Qualified Code(s): J18.9 - Pneumonia, unspecified organism Code(s): J18.9 - Pneumonia, unspecified organism Status: Acute Assessment and Plan: Patient with shaking chills and low-grade fever on admission. White count was mildly elevated 12,800. Lactic acid peaked at 2.9. Chest x-ray showing right lower lobe airspace opacity concerning for pneumonia. Will resume Rocephin and changed to doxycycline. QTC was 481. Follow up on blood cultures. (3) Acute on chronic renal failure: Code(s): N17.9 - Acute kidney failure, unspecified; N18.9 - Chronic kidney disease, unspecified Status: Acute Assessment and Plan: Baseline creatinine running 2.8-3.4 since March of 2020. Creatinine 3.9 on admission. Creatinine closer baseline today at 3.7. Lasix is on hold. He has been started on LR but given his history of CHF, will stop IV fluids. Continue to monitor off Lasix for now. Renal ultrasound ordered. (4) Chronic obstructive pulmonary disease, unspecified: Qualifiers: COPD type: unspecified COPD Qualified Code(s): J44.9 - Chronic obstructive pulmonary disease, unspecified Code(s): J44.9 - Chronic obstructive pulmonary disease, unspecified Status: Acute Assessment and Plan: No wheezing appreciated. Albuterol making him jittery. Will change to Xopenex. (5) Hypertensive chronic kidney disease with stage 1 through stage 4 chronic kidney disease, or unspecified chronic kidney disease: Code(s): I12.9 - Hypertensive chronic kidney disease with stage 1 through stage 4 chronic kidney disease, or unspecified chronic kidney disease Status: Acute Assessment and Plan: Patient's blood pressure was reviewed on 11/15 Blood pressure remains well controlled. Will continue current medications. (6) Unspecified atrial fibrillation: Code(s): I48.91 - Unspecified atrial fibrillation Status: Acute Assessment and Plan: Patient has a history of paroxysmal AFib. EKG showing normal sinus rhythm. He is on amiodarone and Toprol. He is also on Coumadin. INR was mildly subtherapeutic at 1.9 on admission. Continue daily INRs. Adjust Coumadin accordingly. (7) CHF (congestive heart failure): Qualifiers: Heart failure type: unspecified Heart failure chronicity: chronic Qualified Code(s): I50.9 - Heart failure, unspecified Code(s): I50.9 - Heart failure, unspecified Status: Acute Assessment and Plan: Patient has a history of CHF. Last echo noted in the chart was January 2018 which showed normal LV systolic function with EF of 60% and grade 1 diastolic dysfunction.. Patient is off Lasix. Will check echocardiogram. Follow fluid status (8) Type 2 diabetes mellitus with diabetic neuropathy, unspecified: Code(s): E11.40 - Type 2 diabetes mellitus with diabetic neuropathy, unspecified Status: Acute Assessment and Plan: A1c 6.6 earlier this month. The patient's blood glucose was reviewed on 11/15 Glucose remains well controlled. Continue AccuCheks covering with sliding scale. Hypoglycemia protocol available as needed. Continue Lantus. Continue to monitor (9) Enlarged prostate without lower urinary tract symptoms (luts): Code(s): N40.0 - Benign prostatic hyperplasia without lower urinary tract symptoms
[2021-11-15 16:48] LABS: Glucose Point of Care 130 mg/dl (65-105)
[2021-11-15] MEDS: WARFARIN (*PBKC) 3 MG TABLET 6 MG PO (17:08)
--- NOTE | 2021-11-15 17:57 | PC.NURSE ---
This nurse went to pass the patient 1700 Gabapentin and patient states that he does not take his Gabapentin until before bedtime and refused to take the med and requested to take the medication later. This nurse informed the cattery operator nurse at shift change.
[2021-11-15] MEDS: SIMVASTATIN 10 MG TABLET PO (20:29)
[2021-11-15] MEDS: DOXYCYCLINE HYCLATE 100 MG TABLET PO (20:29)
[2021-11-16] VITALS (13 sets, daily range): BP systolic 125–130; BP diastolic 59–67; PULSE 50–90; RESP 15–18; TEMP 36.1–37; O2SAT 90–97
[2021-11-16 05:30] LABS: Basophils Percent Auto 0.5 % (0.2-1.2); Eosinophils Absolute Auto 0.2 K/mm3 (0-0.3); Eosinophils Percent Auto 2.3 % (0-4.4); Hematocrit 29.5 % (42.0-52.0); Hemoglobin 9.9 g/dL (14.0-18.0); Immature Granulocyte Absolute 0.05 K/mm3 (0.00-0.031); Immature Granulocyte Percent A 0.7 % (0-0.5); Lymphocytes Absolute Auto 1.78 K/mm3 (0.9-3.2); Lymphocytes Percent Auto 23.7 % (18.3-44.2); Mean Corpuscular HGB Conc 33.6 g/dl (32-36); Mean Corpuscular Hemoglobin 32.7 pg (26-34); Mean Corpuscular Volume 97.4 fl (80-100); Mean Platelet Volume 10.6 fl (7.4-10.4); Monocytes Absolute Auto 0.6 K/mm3 (0.1-0.6); Monocytes Percent Auto 8.1 % (2.6-8.5); Neutrophils Absolute Auto 4.9 K/mm3 (1.3-6.7); Neutrophils Percent Auto 64.7 % (45.5-73.1); Platelet Count Result 244 k/mm3 (150-375); Red Blood Count 3.03 M/mm3 (4.6-6.20); Red Cell Distribution Width 13.3 % (11.5-14.5); White Blood Count 7.5 K/mm3 (4.5-10.0)
[2021-11-16] MEDS: LEVOTHYROXINE SODIUM 112 MCG TABLET PO (05:34)
[2021-11-16 05:38] LABS: Albumin Level 3.7 g/dL (3.5-5.1); Anion Gap 6 mmol/L (8-16); Blood Urea Nitrogen 55 mg/dL (9-20); CRP 8.5 mg/dL (<1.0); Calcium 8.5 mg/dL (8.4-10.2); Carbon Dioxide 28 mmol/L (22-30); Chloride 102 mmol/L (98-107); Estimated CRCL calculation 17 ml/min; Estimated Glomerular Filt Rate 17; Glucose 140 mg/dL (65-110); Magnesium 2.2 mg/dL (1.6-2.3); Phosphorus 3.2 mg/dL (2.5-4.5); Potassium 3.5 mmol/L (3.4-5.0); Sodium 136 mmol/L (137-145)
[2021-11-16 05:39] LABS: Prothrombin Time 22.1 Seconds (11.1-14.7)
[2021-11-16 07:46] LABS: Glucose Point of Care 128 mg/dl (65-105)
[2021-11-16] MEDS: INSULIN GLARGINE (*BKC) 100 UNITS/ML 10 UNITS SUB-Q (09:10)
[2021-11-16] MEDS: FINASTERIDE 5 MG TABLET PO (09:11)
[2021-11-16] MEDS: METOPROLOL SUCCINATE EXT REL 25 MG TABCR PO (09:11)
[2021-11-16] MEDS: GABAPENTIN 300 MG CAPSULE PO ×2 (09:11→17:20)
[2021-11-16] MEDS: AMIODARONE HCL 100 MG TABLET PO (09:12)
[2021-11-16] MEDS: DOXAZOSIN MESYLATE 2 MG TABLET PO (09:12)
[2021-11-16] MEDS: DOXYCYCLINE HYCLATE 100 MG TABLET PO ×2 (09:12→20:27)
[2021-11-16 11:44] LABS: Glucose Point of Care 147 mg/dl (65-105)
--- NOTE | 2021-11-16 13:03 | PM.IMPN ---
Progress Note: A&P Assessment and Plan (1) Sepsis: Code(s): A41.9 - Sepsis, unspecified organism Status: Acute Assessment and Plan: POA with lactic acidosis, low-grade fever, elevated white count and shaking chills Etiology is probably pneumonia Lactic acid normalized Afebrile Follow blood cultures (2) Pneumonia: Qualifiers: Laterality: right Lung location: lower lobe of lung Pneumonia type: due to unspecified organism Qualified Code(s): J18.9 - Pneumonia, unspecified organism Code(s): J18.9 - Pneumonia, unspecified organism Status: Acute Assessment and Plan: Patient with shaking chills and low-grade fever on admission White count was mildly elevated 12,800, now wnl Lactic acid peaked at 2.9 Chest x-ray showing right lower lobe airspace opacity concerning for pneumonia Continue IV Rocephin and po doxycycline QTC was 481 Follow up on blood cultures (3) Acute on chronic renal failure: Code(s): N17.9 - Acute kidney failure, unspecified; N18.9 - Chronic kidney disease, unspecified Status: Acute Assessment and Plan: Baseline creatinine running 2.8-3.4 since March of 2020 Creatinine 3.9 on admission, 3.7-->3.5 Lasix is on hold S/p LR but given his history of CHF Continue to monitor off Lasix for now Renal ultrasound ordered (4) Chronic obstructive pulmonary disease, unspecified: Qualifiers: COPD type: unspecified COPD Qualified Code(s): J44.9 - Chronic obstructive pulmonary disease, unspecified Code(s): J44.9 - Chronic obstructive pulmonary disease, unspecified Status: Acute Assessment and Plan: No wheezing Albuterol made Continue Xopenex (5) Hypertensive chronic kidney disease with stage 1 through stage 4 chronic kidney disease, or unspecified chronic kidney disease: Code(s): I12.9 - Hypertensive chronic kidney disease with stage 1 through stage 4 chronic kidney disease, or unspecified chronic kidney disease Status: Acute Assessment and Plan: Stable Continue current medications Monitor (6) Unspecified atrial fibrillation: Code(s): I48.91 - Unspecified atrial fibrillation Status: Acute Assessment and Plan: Patient has a history of paroxysmal AFib EKG showing normal sinus rhythm Continue amiodarone , Toprol, Coumadin INR 2.0 today Continue daily INRs Adjust Coumadin accordingly (7) CHF (congestive heart failure): Qualifiers: Heart failure type: unspecified Heart failure chronicity: chronic Qualified Code(s): I50.9 - Heart failure, unspecified Code(s): I50.9 - Heart failure, unspecified Status: Acute Assessment and Plan: Last echo noted in the chart was January 2018 which showed normal LV systolic function with EF of 60% and grade 1 diastolic dysfunction. Off off Lasix Repeat ECHO-->EF 65-70%, grade II diastolic dysfunction; moderate aortic valve calcification; moderate mitral valve regurgitation, mild tricuspid regurgitation Will consult cardiology for input (8) Type 2 diabetes mellitus with diabetic neuropathy, unspecified: Code(s): E11.40 - Type 2 diabetes mellitus with diabetic neuropathy, unspecified Status: Acute Assessment and Plan: A1c 6.6 earlier this month The patient's blood glucose was reviewed on 11/15 Glucose remains well controlled. Continue AccuCheks, SSI, hypoglycemia protocol available as needed Continue Lantus Continue to monitor (9) Enlarged prostate without lower urinary tract symptoms (luts): Code(s): N40.0 - Benign prostatic hyperplasia without lower urinary tract symptoms Status: Acute Assessment and Plan: Stable Monitor for urine retention Continue Cardura and finasteride (10) DVT prophylaxis: Code(s): Z29.9 - Encounter for prophylactic measures, unspecified Status: Acute Assessment and Plan: On Coumadin Subjective Date/time seen: 11/16/21 13:03 Interval
[2021-11-16 16:52] LABS: Glucose Point of Care 114 mg/dl (65-105)
[2021-11-16] MEDS: WARFARIN (*PBKC) 3 MG TABLET 6 MG PO (17:20)
[2021-11-16] MEDS: SIMVASTATIN 10 MG TABLET PO (20:27)
[2021-11-16 21:32] LABS: Glucose Point of Care 179 mg/dl (65-105)
[2021-11-16] MEDS: IPRATROPIUM BR 0.02% INH SOLN 0.5 MG/2.5 ML VIAL INHALATION (21:47)
[2021-11-17] VITALS (7 sets, daily range): BP systolic 137; BP diastolic 83; PULSE 51–58; RESP 14; TEMP 36.4; O2SAT 95–98
[2021-11-17 05:05] LABS: Hematocrit 29.4 % (42.0-52.0); Hemoglobin 9.9 g/dL (14.0-18.0); Mean Corpuscular HGB Conc 33.7 g/dl (32-36); Mean Corpuscular Hemoglobin 32.4 pg (26-34); Mean Corpuscular Volume 96.1 fl (80-100); Mean Platelet Volume 10.6 fl (7.4-10.4); Platelet Count Result 236 k/mm3 (150-375); Red Blood Count 3.06 M/mm3 (4.6-6.20); Red Cell Distribution Width 13.2 % (11.5-14.5); White Blood Count 6.5 K/mm3 (4.5-10.0)
[2021-11-17 05:31] LABS: Anion Gap 2 mmol/L (8-16); Blood Urea Nitrogen 47 mg/dL (9-20); Calcium 8.5 mg/dL (8.4-10.2); Carbon Dioxide 29 mmol/L (22-30); Chloride 103 mmol/L (98-107); Estimated CRCL calculation 20 ml/min; Estimated Glomerular Filt Rate 20; Glucose 122 mg/dL (65-110); INR 1.8; Potassium 3.5 mmol/L (3.4-5.0); Prothrombin Time 20.6 Seconds (11.1-14.7); Sodium 134 mmol/L (137-145)
[2021-11-17] MEDS: LEVOTHYROXINE SODIUM 112 MCG TABLET PO (05:51)
[2021-11-17 07:48] LABS: Glucose Point of Care 128 mg/dl (65-105)
[2021-11-17] MEDS: METOPROLOL SUCCINATE EXT REL 25 MG TABCR PO (07:49)
[2021-11-17] MEDS: DOXYCYCLINE HYCLATE 100 MG TABLET PO (07:50)
[2021-11-17] MEDS: AMIODARONE HCL 100 MG TABLET PO (07:50)
[2021-11-17] MEDS: GABAPENTIN 300 MG CAPSULE PO (07:50)
[2021-11-17] MEDS: FINASTERIDE 5 MG TABLET PO (07:50)
[2021-11-17] MEDS: INSULIN GLARGINE (*BKC) 100 UNITS/ML 10 UNITS SUB-Q (07:50)
[2021-11-17] MEDS: DOXAZOSIN MESYLATE 2 MG TABLET PO (07:50)
[2021-11-17] MEDS: FEBUXOSTAT 40 MG TABLET PO (07:50)
--- NOTE | 2021-11-17 09:44 | PM.CNCAR ---
Assessment and Plan Assessment and plan (1) Paroxysmal atrial fibrillation: Code(s): I48.0 - Paroxysmal atrial fibrillation Status: Acute Assessment and Plan: Paroxysmal. In sinus rhythm at this point. Continue low-dose amiodarone and anticoagulation (2) Diastolic dysfunction: Code(s): I51.89 - Other ill-defined heart diseases Status: Acute Assessment and Plan: Insignificant worsening of diastolic dysfunction. Continue beta-sofiya (3) Mitral regurgitation: Code(s): I34.0 - Nonrheumatic mitral (valve) insufficiency Status: Acute Assessment and Plan: Moderate mitral regurgitation. Will simply follow this over time as an outpatient (4) Aortic stenosis: Code(s): I35.0 - Nonrheumatic aortic (valve) stenosis Status: Acute Assessment and Plan: Moderate aortic stenosis. Similarly, will follow this over time as an outpatient (5) Thoracic aortic aneurysm, without rupture: Code(s): I71.2 - Thoracic aortic aneurysm, without rupture Status: Acute Assessment and Plan: Optimize blood pressure control (6) CHF (congestive heart failure): Qualifiers: Heart failure type: unspecified Heart failure chronicity: chronic Qualified Code(s): I50.9 - Heart failure, unspecified Code(s): I50.9 - Heart failure, unspecified Status: Acute Assessment and Plan: Some degree of diastolic heart failure but predominantly his symptomatology is secondary to pneumonia and renal failure. Resume furosemide once kidney function is stable. No further cardiology recommendations History of Present Illness History of Present Illness Consult date/time: 11/17/21 09:44 Requesting physician: Talia Billings, [employer] Consult reason: congestive heart failure Reason For Visit: Pneumonia, Atrial FIB Narrative: Reason consultation: Worsening diastolic dysfunction, mitral regurgitation Requesting provider: Talia Billings Date of service 11/17/2021 History:This is an 86-year-old male with past medical history significant for chronic kidney disease, hypertension, type 2 diabetes mellitus, thoracic aortic aneurysm, gout, kidney stones, benign prostatic hyperplasia, chronic obstructive pulmonary disease. He presented to the emergency room because of chills and hospitalized for treatment of respiratory failure, pneumonia, acute on chronic renal failure. An echocardiogram was ordered which showed mild worsening of diastolic dysfunction and moderate mitral regurgitation. This triggered cardiology consultation. Patient denies any shortness of breath at this point. He did have some dry heaving today. He was nauseated. He has had no recent chest pain, syncope, presyncope, paroxysmal nocturnal dyspnea, orthopnea, edema palpitations. No significant shortness of breath this point Review of Systems Review of Systems: All systems reviewed & are unremarkable except as noted in HPI and below Constitutional: Constitutional: Reports weakness Eyes: Eyes: Denies blurry vision ENT: Reports Normal hearing present Cardiovascular: Cardiovascular: Denies chest pain Respiratory: Respiratory: Denies dyspnea Gastrointestinal: Gastrointestinal: Denies abdominal pain and Reports nausea Genitourinary: Genitourinary: Denies dysuria Musculoskeletal: Musculoskeletal: Denies back pain and Denies neck pain Integumentary/Breasts: Skin/Breast: Denies dry skin Neurologic: Denies headache(s) Psychiatric: Psychiatric: Denies anxiety Endocrine: Endocrine: Denies fatigue Hematologic/Lymphatic: Hematologic/Lymphatic: Denies easy bleeding Allergic/Immunologic: Allergic/Immunologic: Denies GI upset with certain foods PMFSH Past Medical History Medical History Cancer of kidney CHF (congestive heart failure) Chronic kidney disease, stage 4 (severe) Chronic obstructive pulmonary disease, unspec
[2021-11-17 12:04] LABS: Glucose Point of Care 145 mg/dl (65-105)
--- NOTE | 2021-11-17 13:20 | PM.DS ---
DS: Admitting Diagnosis Discharge Date 11/17/2021 Admitting Diagnosis Chills DS: Discharge Diagnosis Discharge Diagnosis (1) Sepsis: Code(s): A41.9 - Sepsis, unspecified organism Status: Acute Assessment and Plan: POA with lactic acidosis, low-grade fever, elevated white count and shaking chills Etiology is probably pneumonia Lactic acid normalized Afebrile Follow blood cultures (2) Pneumonia: Qualifiers: Laterality: right Lung location: lower lobe of lung Pneumonia type: due to unspecified organism Qualified Code(s): J18.9 - Pneumonia, unspecified organism Code(s): J18.9 - Pneumonia, unspecified organism Status: Acute Assessment and Plan: Patient with shaking chills and low-grade fever on admission White count was mildly elevated 12,800, now wnl Lactic acid peaked at 2.9 Chest x-ray showing right lower lobe airspace opacity concerning for pneumonia Continue IV Rocephin and po doxycycline QTC was 481 Follow up on blood cultures (3) Acute on chronic renal failure: Code(s): N17.9 - Acute kidney failure, unspecified; N18.9 - Chronic kidney disease, unspecified Status: Acute Assessment and Plan: Baseline creatinine running 2.8-3.4 since March of 2020 Creatinine 3.9 on admission, 3.7-->3.5 Lasix is on hold S/p LR but given his history of CHF Continue to monitor off Lasix for now Renal ultrasound ordered (4) Chronic obstructive pulmonary disease, unspecified: Qualifiers: COPD type: unspecified COPD Qualified Code(s): J44.9 - Chronic obstructive pulmonary disease, unspecified Code(s): J44.9 - Chronic obstructive pulmonary disease, unspecified Status: Acute Assessment and Plan: No wheezing Albuterol made Continue Xopenex (5) Hypertensive chronic kidney disease with stage 1 through stage 4 chronic kidney disease, or unspecified chronic kidney disease: Code(s): I12.9 - Hypertensive chronic kidney disease with stage 1 through stage 4 chronic kidney disease, or unspecified chronic kidney disease Status: Acute Assessment and Plan: Stable Continue current medications Monitor (6) Unspecified atrial fibrillation: Code(s): I48.91 - Unspecified atrial fibrillation Status: Acute Assessment and Plan: Patient has a history of paroxysmal AFib EKG showing normal sinus rhythm Continue amiodarone , Toprol, Coumadin INR 2.0 today Continue daily INRs Adjust Coumadin accordingly (7) CHF (congestive heart failure): Qualifiers: Heart failure type: unspecified Heart failure chronicity: chronic Qualified Code(s): I50.9 - Heart failure, unspecified Code(s): I50.9 - Heart failure, unspecified Status: Acute Assessment and Plan: Last echo noted in the chart was January 2018 which showed normal LV systolic function with EF of 60% and grade 1 diastolic dysfunction. Off off Lasix Repeat ECHO-->EF 65-70%, grade II diastolic dysfunction; moderate aortic valve calcification; moderate mitral valve regurgitation, mild tricuspid regurgitation Will consult cardiology for input (8) Type 2 diabetes mellitus with diabetic neuropathy, unspecified: Code(s): E11.40 - Type 2 diabetes mellitus with diabetic neuropathy, unspecified Status: Acute Assessment and Plan: A1c 6.6 earlier this month The patient's blood glucose was reviewed on 12/24 Glucose remains well controlled. Continue AccuCheks, SSI, hypoglycemia protocol available as needed Continue Lantus Continue to monitor (9) Enlarged prostate without lower urinary tract symptoms (luts): Code(s): N40.0 - Benign prostatic hyperplasia without lower urinary tract symptoms Status: Acute Assessment and Plan: Stable Monitor for urine retention Continue Cardura and finasteride (10) DVT prophylaxis: Code(s): Z29.9 - Encounter for prophylactic measures, unspecified Status: Acute Assessm
== END 2021-11-17 14:46 | disposition home or self-care (01) | DRG 871 ==
LOC: ANHED 11-15 00:08 → ANH2MED 11-15 02:18
PROVIDERS: Internal Medicine; Nurse Practitioner Adult Health; Admitting Provider Internal Medicine; Emergency Provider Emergency Medicine; PCP Family Medicine; Visit Provider Family Medicine
DX: A41.9 Sepsis, unspecified organism; J18.9 Pneumonia, unspecified organism; J44.0 Chronic obstructive pulmonary disease with (acute) lower respiratory infection; N17.9 Acute kidney failure, unspecified; N18.4 Chronic kidney disease, stage 4 (severe); I13.0 Hypertensive heart and chronic kidney disease with heart failure and stage 1 through stage 4 chronic kidney disease, or unspecified chronic kidney disease; I50.32 Chronic diastolic (congestive) heart failure; E11.22 Type 2 diabetes mellitus with diabetic chronic kidney disease; Z20.822 Contact with and (suspected) exposure to COVID-19; E11.40 Type 2 diabetes mellitus with diabetic neuropathy, unspecified; I48.0 Paroxysmal atrial fibrillation; I08.0 Rheumatic disorders of both mitral and aortic valves; I71.2 Thoracic aortic aneurysm, without rupture; M10.9 Gout, unspecified; N40.0 Benign prostatic hyperplasia without lower urinary tract symptoms; Z79.01 Long term (current) use of anticoagulants; Z79.4 Long term (current) use of insulin; Z79.899 Other long term (current) drug therapy; Z87.891 Personal history of nicotine dependence; Z87.442 Personal history of urinary calculi
CPT/HCPCS: 36415; 71045; 76775; 80048; 80053; 80069; 81003; 82948; 83605; 83735; 85025; 85027; 85610; 85730; 86140; 87040; 87426; 87804; 93005; 93306; 94640; 97161; 97165; 99285; A9270; C9803; J0456; J0696; J1815; J7120

== ENCOUNTER 2022-02-09 09:02 | Emergency (ER) | payer MEDICARE, SELFPAY ==
[2022-02-09] VITALS (38 sets, daily range): BP systolic 101–150; BP diastolic 65–83; PULSE 59–67; RESP 18; TEMP 36.9; O2SAT 89–100
--- NOTE | ~2022-02-09 | CT_ITS ---
EXAMINATION: CT cervical spine wo con DATE: 02/09/2022 10:53 INDICATION: Neck pain TECHNIQUE: Computed tomography (CT) of the cervical spine was performed without intravenous contrast. The dose-length product was 463 mGy-cm. Automated exposure control and iterative reconstruction tech nique were employed. COMPARISON: None FINDINGS: There is accentuated cervical lordosis. There is mild disc narrowing at C3-4 and C4-5. Ther e is mild-moderate multilevel uncinate and facet degenerative change. There is dextroscoliosis. There is carotid atherosclerosis. Lung apices are normal. Odontoid process is within normal limits. No acu te fracture or traumatic malalignment. Craniovertebral junction is normal. IMPRESSION: 1. No acute abnormality of the cervical spine. 2: Moderate cervical spondylosis with dextroscoliosis and accentuated lordosis. Reviewed, dictated and finalized at location A. IMPRESSION: 1. No acute abnormality of the cervical spine. 2: Moderate cervical spondylosis with dextroscoliosis and accentuated lordosis .
--- NOTE | 2022-02-09 09:31 | PC.NURSE ---
EDP at bedside to assess pt.
--- NOTE | 2022-02-09 09:44 | ED.NECK ---
HPI - Neck Pain/Injury General Chief Complaint: Neck Pain/Injury Stated Complaint: LT NECK PAIN Time Seen by Provider: 02/09/22 09:40 Source: patient and family Mode of arrival: EMS Limitations: no limitations History of Present Illness HPI Narrative: Pt is an 86 y/o male who present to the ER via ambulance for left neck pain. Patient states that he began having increasing pain yesterday. Patient states that his 3 weeks ago and he has been having trouble sleeping and sleeping on his cough, in a chair, and in his bed. Patient states that any movement of his neck is painful. Patient states he feels like his muscles are tight. Patient denies taking any OTC medication to help w/ pain. Patient states he did take 2 Tramadol w/o any relief. Patient denies any trauma or injury to the area. Patient denies any radiation of pain. Patient denies any slurred speech, facial droop or aphasia. Patient denies any upper or lower extremity weaknesss. Patient's daughter is at bedside and states that she feels that her father's voice is a little different than normal. Patient denies any fever or chills. Related Data Home Medications Medication Instructions Recorded Confirmed amiodarone 200 mg tablet 100 mg PO QAM tablet 04/27/20 11/15/21 warfarin 1 mg tablet 6 mg PO DAILY tablet 04/27/20 11/15/21 furosemide 40 mg PO BID 12/12/20 11/15/21 metoprolol succinate 25 mg 25 mg PO DAILY 10/22/21 11/15/21 tablet,extended release 24 hr Basaglar KwikPen U-100 Insulin 10 unit SUBCUT DAILY 11/15/21 11/15/21 finasteride 5 mg PO DAILY 11/15/21 11/15/21 levothyroxine 112 mcg PO DAILY 11/15/21 11/15/21 febuxostat 40 mg PO DAILY 11/16/21 11/16/21 febuxostat mg 11/16/21 Allergies Allergy/AdvReac Type Severity Reaction Status Date / Time amoxicillin Allergy Mild Rash Verified 02/09/22 10:25 albuterol Allergy Unknown Unknown Verified 02/09/22 10:25 Review of Systems Review of Systems: All systems reviewed & are unremarkable except as noted in HPI and below (HPI) [facility] Past Medical History Medical History Cancer of kidney CHF (congestive heart failure) Chronic kidney disease, stage 4 (severe) Chronic obstructive pulmonary disease, unspecified Enlarged prostate without lower urinary tract symptoms (luts) Essential (primary) hypertension Gout, unspecified Kidney stones Thoracic aortic aneurysm, without rupture 10-20 CT of chest 4.6 cm Type 2 diabetes mellitus with diabetic neuropathy, unspecified Surgical History Surgical History History of back surgery Hx of laminectomy T7 Family History Family History Sibling Diabetes mellitus Mother Family history of Alzheimer's disease Family history of pancreatic cancer Other Family history of kidney stones Social History Social History Smoking status: Former smoker Tobacco type: cigarettes Alcohol intake: never Substance use: never Substance use type: does not use Gender identity (if verbalized by the patient): Male Sexual Orientation (if Verbalized by the Patient): Straight or Heterosexual Spiritual care concerns: No Exam Const: General: no acute distress and alert Orientation/consciousness: patient oriented x3 HENMT: Head: normal to inspection Throat: tonsils normal and posterior oropharynx abnormal erythema Neck: Neck: normal visual inspection Other: Patient has decreased active and passive ROM. Resp: Effort & Inspection: normal respiratory effort Auscultation: clear to auscultation bilaterally Cardio: Rate: regular rate Rhythm: regular rhythm Heart sounds: Murmur heart sound present systolic II/ GI: GI Palp: Yes Soft to palpation Back/Spine/Pelvis: Back: no CVA tenderness Neuro: General: patient oriented x3, moves all extremi
[2022-02-09 10:04] LABS: Basophils Percent Auto 0.6 % (0.2-1.2); Eosinophils Absolute Auto 0.1 K/mm3 (0-0.3); Eosinophils Percent Auto 1.6 % (0-4.4); Hematocrit 29.7 % (42.0-52.0); Hemoglobin 9.8 g/dL (14.0-18.0); Immature Granulocyte Absolute 0.04 K/mm3 (0.00-0.031); Immature Granulocyte Percent A 0.6 % (0-0.5); Lymphocytes Absolute Auto 0.91 K/mm3 (0.9-3.2); Lymphocytes Percent Auto 13.2 % (18.3-44.2); Mean Corpuscular Hemoglobin 31.1 pg (26-34); Mean Corpuscular Volume 94.3 fl (80-100); Mean Platelet Volume 9.8 fl (7.4-10.4); Monocytes Absolute Auto 0.5 K/mm3 (0.1-0.6); Monocytes Percent Auto 6.8 % (2.6-8.5); Neutrophils Absolute Auto 5.3 K/mm3 (1.3-6.7); Neutrophils Percent Auto 77.2 % (45.5-73.1); Platelet Count Result 325 k/mm3 (150-375); Red Blood Count 3.15 M/mm3 (4.6-6.20); Red Cell Distribution Width 13.1 % (11.5-14.5); White Blood Count 6.9 K/mm3 (4.5-10.0)
[2022-02-09] MEDS: diazePAM INJ (*CRX) 10 MG/2 ML SYRINGE 5 MG IV PUSH (10:15)
[2022-02-09 10:17] LABS: Alanine Aminotransferase 14 U/L (4-50); Albumin Level 4.2 g/dL (3.5-5.1); Alkaline Phosphatase 93 U/L (38-126); Anion Gap 8 mmol/L (8-16); Aspartate Amino Transferase 23 U/L (17-59); Bilirubin,Total 0.5 mg/dL (0.2-1.3); Blood Urea Nitrogen 73 mg/dL (9-20); Calcium 8.3 mg/dL (8.4-10.2); Carbon Dioxide 27 mmol/L (22-30); Chloride 99 mmol/L (98-107); Estimated CRCL calculation 15 ml/min; Estimated Glomerular Filt Rate 15; Glucose 158 mg/dL (65-110); Potassium 3.3 mmol/L (3.4-5.0); Sodium 134 mmol/L (137-145)
[2022-02-09 10:22] LABS: INR 2.7; Prothrombin Time 28.1 Seconds (11.1-14.7)
[2022-02-09] MEDS: CYCLOBENZAPRINE HCL 10 MG TABLET PO (11:46)
[2022-02-09] MEDS: SODIUM CHLORIDE 0.9% IV 500 ML 999 ML IV CONT (13:16)
[2022-02-09] MEDS: MORPHINE SULFATE (*CRX) 2 MG/ML INJ 1 MG IV PUSH (13:18)
== END 2022-02-09 15:27 | disposition home or self-care (01) ==
PROVIDERS: Nurse Practitioner Adult Health; Emergency Provider Emergency Medicine; PCP Family Medicine
DX: M43.6 Torticollis (principal); J02.0 Streptococcal pharyngitis; I50.9 Heart failure, unspecified; E11.22 Type 2 diabetes mellitus with diabetic chronic kidney disease; I13.0 Hypertensive heart and chronic kidney disease with heart failure and stage 1 through stage 4 chronic kidney disease, or unspecified chronic kidney disease; N18.4 Chronic kidney disease, stage 4 (severe); N40.0 Benign prostatic hyperplasia without lower urinary tract symptoms; M10.9 Gout, unspecified; Z87.442 Personal history of urinary calculi; E11.40 Type 2 diabetes mellitus with diabetic neuropathy, unspecified; Z79.01 Long term (current) use of anticoagulants; Z87.891 Personal history of nicotine dependence; Z79.4 Long term (current) use of insulin
CPT/HCPCS: 36415; 72125; 80053; 85025; 85610; 87880; 96361; 96374; 96375; 99284; A9270; J2270; J3360; J7040

== ENCOUNTER 2022-07-17 14:17 | Outpatient (CLI) | payer MEDICARE, SELFPAY ==
[2022-07-17 18:45] LABS: INR 2.5; Prothrombin Time 26.1 Seconds (11.1-14.7)
== END 2022-07-17 14:18 | disposition home or self-care (01) ==
LOC: ANHGOSHLAB 14:25
PROVIDERS: PCP Family Medicine; Visit Provider Otolaryngology
DX: T45.511A Poisoning by anticoagulants, accidental (unintentional), initial encounter (principal)
CPT/HCPCS: 36415; 85610

== ENCOUNTER 2022-08-05 16:57 | Outpatient (CLI) | payer MEDICARE, SELFPAY ==
[2022-08-05 17:32] LABS: Alanine Aminotransferase 11 U/L (6-50); Albumin Level 4.5 g/dL (3.5-5.1); Alkaline Phosphatase 71 U/L (38-126); Anion Gap 15 mmol/L (8-16); Aspartate Amino Transferase 25 U/L (17-59); Bilirubin,Total 0.2 mg/dL (0.2-1.3); Blood Urea Nitrogen 42 mg/dL (9-20); Calcium 8.9 mg/dL (8.4-10.2); Carbon Dioxide 28 mmol/L (22-30); Chloride 100 mmol/L (98-107); Estimated Glomerular Filt Rate 21; Glucose 127 mg/dL (65-110); Potassium 4.2 mmol/L (3.4-5.0); Sodium 143 mmol/L (137-145)
== END 2022-08-05 16:58 | disposition home or self-care (01) ==
LOC: ANHLAB 17:00
PROVIDERS: PCP Family Medicine; Visit Provider Internal Medicine Cardiovascular Disease
DX: Z51.81 Encounter for therapeutic drug level monitoring (principal); Z79.899 Other long term (current) drug therapy
CPT/HCPCS: 36415; 80053; 84443

== ENCOUNTER 2023-03-27 19:36 | Emergency (ER) | payer MEDICARE, SELFPAY ==
[2023-03-27] VITALS (20 sets, daily range): BP systolic 104–126; BP diastolic 68–76; PULSE 66–77; RESP 11–20; TEMP 36.4; O2SAT 92–100
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
--- NOTE | ~2023-03-27 | CT_ITS ---
EXAMINATION: CT pelvis wo con DATE: 03/27/2023 23:03 INDICATION: Enlarged left buttock hematoma, on warfarin TECHNIQUE: Computed tomography (CT) of the pelvis was performed without intravenous contrast. Automat ed exposure control and iterative reconstruction technique were employed. The dose-length product was 956.66 mGy-cm. COMPARISON: CT abdomen pelvis 10/05/2020 FINDINGS: Partially visualized stable renal masses. Cholelithiasis. No gallbladder inflammation. Athe rosclerotic calcifications. Scattered colonic diverticuli. Mild urinary bladder distention with mild prostatomegaly. Uncomplicated fat-containing umbilical and bilateral inguinal hernias. Lobulated hete rogeneous 8.7 cm hematoma in the left gluteus rosemary muscle. Degenerative change in the lumbar spine . Moderate bilateral hip osteoarthritis. No fracture or dislocation. Osteopenia. IMPRESSION: No acute osseous finding in the pelvis. 8.7 cm left gluteus rosemary intramuscular hematoma. Reviewed, dictated and finalized at location K. IMPRESSION: No acute osseous finding in the pelvis. 8.7 cm left gluteus rosemary intramuscul ar hematoma.
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
[2023-03-27] MEDS: ONDANSETRON INJ 4 MG/2 ML VIAL IV PUSH (22:01)
[2023-03-27] MEDS: ACETAMINOPHEN 500 MG TABLET 1000 MG PO (22:01)
[2023-03-27] MEDS: MORPHINE SULFATE (*CRX) 2 MG/ML INJ IV PUSH (22:01)
[2023-03-27 22:02] LABS: Basophils Absolute Auto 0.1 K/mm3 (0.0-0.1); Basophils Percent Auto 0.7 % (0.2-1.2); Eosinophils Absolute Auto 0.1 K/mm3 (0-0.3); Eosinophils Percent Auto 1.1 % (0-4.4); Hematocrit 30.9 % (42.0-52.0); Hemoglobin 10.3 g/dL (14.0-18.0); Immature Granulocyte Absolute 0.04 K/mm3 (0.00-0.031); Immature Granulocyte Percent A 0.4 % (0-0.5); Lymphocytes Absolute Auto 1.77 K/mm3 (0.9-3.2); Lymphocytes Percent Auto 17.2 % (18.3-44.2); Mean Corpuscular HGB Conc 33.3 g/dl (32-36); Mean Corpuscular Hemoglobin 30.7 pg (26-34); Mean Corpuscular Volume 92.2 fl (80-100); Mean Platelet Volume 10.6 fl (7.4-10.4); Monocytes Absolute Auto 0.7 K/mm3 (0.1-0.6); Monocytes Percent Auto 6.5 % (2.6-8.5); Neutrophils Absolute Auto 7.6 K/mm3 (1.3-6.7); Neutrophils Percent Auto 74.1 % (45.5-73.1); Platelet Count Result 216 k/mm3 (150-375); Red Blood Count 3.35 M/mm3 (4.6-6.20); Red Cell Distribution Width 13.8 % (11.5-14.5); White Blood Count 10.3 K/mm3 (4.5-10.0)
[2023-03-27 22:16] LABS: INR 2.6; Prothrombin Time 29.8 Seconds (11.1-14.7)
[2023-03-27 22:17] LABS: Partial Thromboplastin Time 38.1 SECONDS (22.3-36.8)
[2023-03-27 22:24] LABS: Alanine Aminotransferase 16 U/L (6-50); Albumin Level 4.5 g/dL (3.5-5.1); Alkaline Phosphatase 66 U/L (38-126); Anion Gap 15 mmol/L (8-16); Aspartate Amino Transferase 21 U/L (17-59); Bilirubin,Total 0.8 mg/dL (0.2-1.3); Blood Urea Nitrogen 54 mg/dL (9-20); Calcium 8.6 mg/dL (8.4-10.2); Carbon Dioxide 20 mmol/L (22-30); Chloride 101 mmol/L (98-107); Estimated CRCL calculation 17 ml/min; Estimated Glomerular Filt Rate 18; Glucose 147 mg/dL (65-110); Potassium 3.7 mmol/L (3.4-5.0); Sodium 136 mmol/L (137-145)
[2023-03-28] VITALS (13 sets, daily range): BP systolic 99–120; BP diastolic 67–74; PULSE 71–75; RESP 9–22; TEMP 36.6; O2SAT 92–99
== END 2023-03-28 01:50 | disposition short-term general hospital (02) ==
PROVIDERS: Emergency Provider Physician Assistant; PCP Family Medicine
DX: S32.010A Wedge compression fracture of first lumbar vertebra, initial encounter for closed fracture (principal); S30.0XXA Contusion of lower back and pelvis, initial encounter; N18.4 Chronic kidney disease, stage 4 (severe); E11.22 Type 2 diabetes mellitus with diabetic chronic kidney disease; I13.0 Hypertensive heart and chronic kidney disease with heart failure and stage 1 through stage 4 chronic kidney disease, or unspecified chronic kidney disease; I50.9 Heart failure, unspecified; I48.91 Unspecified atrial fibrillation; I70.0 Atherosclerosis of aorta; E11.40 Type 2 diabetes mellitus with diabetic neuropathy, unspecified; E53.8 Deficiency of other specified B group vitamins; E78.49 Other hyperlipidemia; J44.9 Chronic obstructive pulmonary disease, unspecified; D64.9 Anemia, unspecified; N40.0 Benign prostatic hyperplasia without lower urinary tract symptoms; M10.9 Gout, unspecified; M11.80 Other specified crystal arthropathies, unspecified site; Z87.442 Personal history of urinary calculi; Z79.01 Long term (current) use of anticoagulants; Z79.4 Long term (current) use of insulin; V18.0XXA Pedal cycle driver injured in noncollision transport accident in nontraffic accident, initial encounter; Y93.55 Activity, bike riding
CPT/HCPCS: 36415; 72131; 72192; 80053; 85025; 85610; 85730; 96374; 96375; 99285; A9270; J2270; J2405

== ENCOUNTER 2023-04-21 10:01 | Outpatient (CLI) | payer MEDICARE, SELFPAY ==
--- NOTE | ~2023-04-21 | XR_ITS ---
Clinical Indication: Chronic CHF PA and lateral views of the chest: Comparison: 11/17/2021 Findings: The lungs are clear, without evidence of focal consolidation or pleural effusion. Cardiome diastinal silhouette is within normal limits. Bones and soft tissues are unremarkable. Impression: Normal chest. Reviewed, dictated and finalized at location . Impression: Normal chest.
== END 2023-04-21 10:02 | disposition home or self-care (01) ==
PROVIDERS: PCP Family Medicine; Visit Provider Internal Medicine Cardiovascular Disease
DX: I50.32 Chronic diastolic (congestive) heart failure (principal); Z51.81 Encounter for therapeutic drug level monitoring; Z79.899 Other long term (current) drug therapy
CPT/HCPCS: 71046

== ENCOUNTER 2023-07-05 07:16 | Inpatient (IN) | payer MEDICARE, SELFPAY ==
[2023-07-05] VITALS (41 sets, daily range): BP systolic 79–131; BP diastolic 60–110; PULSE 99–168; RESP 14–30; TEMP 36.5–37; O2SAT 89–100; BMI 33.9
--- NOTE | ~2023-07-05 | XR_ITS ---
EXAMINATION: XR chest 1V portable INDICATION: Shortness of breath TECHNIQUE: Portable AP chest at 0751 hours COMPARISON: 04/21/2023 FINDINGS: Cardiomegaly is noted. There is a mild diffuse interstitial pattern. No pleural effusion or pneumothorax. IMPRESSION: 1. Cardiomegaly with mild pulmonary edema. Reviewed, dictated and finalized at location A.
--- NOTE | ~2023-07-05 | XR_ITS ---
EXAMINATION: XR chest 1V portable DATE: 07/07/2023 03:41 INDICATION: Dyspnea. TECHNIQUE: A single frontal view of the chest was obtained. COMPARISON: Chest single view 07/06/2023 FINDINGS: There are interstitial and airspace opacities in all lung zones bilaterally. There are smal l pleural effusions. No pneumothorax. Cardiomegaly is noted. IMPRESSION: 1. Stable diffuse lung disease, likely moderate pulmonary edema. 2. Stable small pleural effusions. 3. Cardiomegaly. Reviewed, dictated and finalized at location A.
--- NOTE | ~2023-07-05 | XR_ITS ---
EXAMINATION: XR chest 1V portable DATE: 07/06/2023 05:31 INDICATION: Pulmonary edema. TECHNIQUE: A single frontal view of the chest was obtained. COMPARISON: Chest single view 07/05/2023, CT abdomen and pelvis 07/05/2023 FINDINGS: There is a diffuse interstitial pattern in the lungs. There are airspace opacities in all l giovany zones with a perihilar predominance. There is a small right pleural effusion. No pneumothorax. Ca rdiomegaly is noted. Surgical clips overlie the mediastinum. IMPRESSION: 1. Worsened diffuse lung disease, likely moderate pulmonary edema. 2. Stable small right pleural effusion. 3. Cardiomegaly. Reviewed, dictated and finalized at location A.
--- NOTE | ~2023-07-05 | XR_ITS ---
EXAMINATION: XR chest port-a-cath/central DATE: 07/08/2023 13:18 INDICATION: Right internal jugular central venous dialysis catheter placement TECHNIQUE: frontal view of the chest was obtained. COMPARISON: Chest radiograph dated 07/07/2023 at 6:00 AM FINDINGS: Interval placement of a large-bore right internal jugular central venous catheter with distal tip at the mid superior vena cava. Again seen are indistinct interstitial and airspace opacities throughout both lungs with basilar predominance. No pneumothorax. Cardiomegaly. Couple surgical clips project ov er the thoracic inlet. IMPRESSION: 1. Right internal jugular central venous catheter tip at the midsuperior vena cava. No pneumothorax. 2. Persistent interstitial and airspace opacities throughout both lungs most likely related to pulmon reba edema and small bilateral pleural effusions. 2. Cardiomegaly. Reviewed, dictated and finalized at location A. IMPRESSION: 1. Right internal jugular central venous catheter tip at the midsuperior vena c barbi. No pneumothorax. 2. Persistent interstitial and airspace opacities throughout both lungs most li randall related to pulmonary edema and small bilateral pleural effusions. 2. Cardiomegaly.
--- NOTE | ~2023-07-05 | CT_ITS ---
EXAMINATION: CT abdomen pelvis wo con DATE: 07/05/2023 08:46 INDICATION: Epigastric abdominal pain TECHNIQUE: Computed tomography (CT) of the abdomen and pelvis was performed without intravenous contr ast. The dose-length product (DLP) was 1226.52 mGy-cm. Automated exposure control and iterative recon struction technique were employed. COMPARISON: 10/05/2020 FINDINGS: There are small pleural effusions, right greater than left. There is mild atelectasis of th e visualized lung bases. Mild left gynecomastia is noted. There is calcified coronary artery atherosc lerosis. Punctate calcifications in an otherwise normal spleen likely represent healed granulomatous disease. The liver, pancreas, and adrenal glands are normal. A stone is present in the nondistended g allbladder. There are multiple cysts of the kidneys without significant change which range from simpl e to proteinaceous hemorrhagic. There is calcified atherosclerosis of the aorta and many of the other arteries. No pathologically enlarged abdominal or pelvic lymph nodes are identified. No free intrape ritoneal gas or evidence of bowel obstruction. There are umbilical and bilateral inguinal hernias con taining fat. There is severe lower thoracic and lumbar spondylosis. IMPRESSION: 1. Cholelithiasis without additional findings of cholecystitis. Reviewed, dictated and finalized at location A.
--- NOTE | ~2023-07-05 | XR_ITS ---
EXAMINATION: XR chest 1V portable DATE: 07/10/2023 07:01 INDICATION: Shortness of breath. Congestive heart failure. TECHNIQUE: A single frontal view of the chest was obtained. COMPARISON: Chest 2 views 04/21/2023, chest CT 06/16/2018 FINDINGS: There is a diffuse interstitial pattern in the lungs. There are airspace opacities in all l giovany zones bilaterally with a perihilar and basilar predominance, right worse than left. There are sma ll pleural effusions. No pneumothorax. Cardiomegaly is noted. A right internal jugular central venous catheter is seen with tip in the superior vena cava. Surgical clips overlie the mediastinum. IMPRESSION: 1. Diffuse lung disease, consistent with moderate pulmonary edema. Superimposed pneumonia cannot be e xcluded. 2. Small pleural effusions. 3. Cardiomegaly. Reviewed, dictated and finalized at location A. IMPRESSION: 1. Diffuse lung disease, consistent with moderate pulmonary edema. Superimposed pneumonia cannot be excluded. 2. Small pleural effusions. 3. Cardiomegaly.
--- NOTE | 2023-07-05 07:18 | ECG_ITS ---
Measurements Intervals [place] Rate: 152 P: MS: 0 QRS: -27 QRSD: 156 T: 146 QT: 301 QTc: 479 Interpretive Statements ATRIAL FIBRILLATION WITH RAPID VENTRICULAR RESPONSE LEFT BUNDLE BRANCH BLOCK [120+ ms QRS DURATION, 80+ ms Q/S IN V1/V2, 85+ ms R IN I/aVL/V5/V6] ABNORMAL ECG COMPARED TO ECG 11/14/2021 22:46:52 ATRIAL FIBRILLATION NOW PRESENT Electronically Signed On 07-05-2023 10:06:28 CDT by Kee Rushing M.D.
[2023-07-05 07:37] LABS: Glucose Point of Care 160 mg/dl (65-105)
[2023-07-05 07:38] LABS: Basophils Percent Auto 0.3 % (0.2-1.2); Eosinophils Percent Auto 0.1 % (0-4.4); Hematocrit 33.2 % (42.0-52.0); Hemoglobin 10.8 g/dL (14.0-18.0); Immature Granulocyte Absolute 0.05 K/mm3 (0.00-0.031); Immature Granulocyte Percent A 0.4 % (0-0.5); Lymphocytes Absolute Auto 1.84 K/mm3 (0.9-3.2); Lymphocytes Percent Auto 15.9 % (18.3-44.2); Mean Corpuscular HGB Conc 32.5 g/dl (32-36); Mean Corpuscular Hemoglobin 30.6 pg (26-34); Mean Corpuscular Volume 94.1 fl (80-100); Mean Platelet Volume 11.1 fl (7.4-10.4); Monocytes Percent Auto 8.5 % (2.6-8.5); Neutrophils Absolute Auto 8.6 K/mm3 (1.3-6.7); Neutrophils Percent Auto 74.8 % (45.5-73.1); Platelet Count Result 236 k/mm3 (150-375); Red Blood Count 3.53 M/mm3 (4.6-6.20); Red Cell Distribution Width 13.8 % (11.5-14.5); White Blood Count 11.6 K/mm3 (4.5-10.0)
[2023-07-05] MEDS: dilTIAZem HCl INJ 25 MG/5 ML VIAL 10 MG IV PUSH (07:39)
[2023-07-05] MEDS: SODIUM CHLORIDE 0.9% IV 2,000 ML 999 ML IV CONT (07:40)
[2023-07-05 07:47] LABS: Alanine Aminotransferase 15 U/L (6-50); Albumin Level 4.1 g/dL (3.5-5.1); Alkaline Phosphatase 59 U/L (38-126); Anion Gap 13 mmol/L (8-16); Aspartate Amino Transferase 22 U/L (17-59); Bilirubin,Total 1.2 mg/dL (0.2-1.3); Blood Urea Nitrogen 63 mg/dL (9-20); Calcium 8.9 mg/dL (8.4-10.2); Carbon Dioxide 23 mmol/L (22-30); Chloride 98 mmol/L (98-107); Estimated CRCL calculation 15 ml/min; Estimated Glomerular Filt Rate 13; Glucose 170 mg/dL (65-110); Potassium 3.6 mmol/L (3.4-5.0); Sodium 134 mmol/L (137-145)
--- NOTE | 2023-07-05 08:00 | ECG_ITS ---
Measurements Intervals [place] Rate: 103 P: ME: 0 QRS: -33 QRSD: 160 T: 146 QT: 405 QTc: 531 Interpretive Statements ATRIAL FIBRILLATION WITH RAPID VENTRICULAR RESPONSE WITH ABERRANT CONDUCTION OR VENTRICULAR PREMATURE COMPLEXES LEFT BUNDLE-BRANCH BLOCK ABNORMAL ECG Electronically Signed On 07-05-2023 10:06:49 CDT by Kee Rushing M.D.
--- NOTE | 2023-07-05 08:01 | ED.SOB ---
HPI - SOB/Dyspnea General Chief Complaint: Shortness of Breath/Dyspnea Stated Complaint: trouble breathing Time Seen by Provider: 07/05/23 07:25 History of Present Illness HPI Narrative: This is an 87-year-old male, with past history of A-fib, CHF, type 2 diabetes, who presents to the emergency department complaining of shortness of breath for the last several days, worse last night. The patient states over the last 2 days he has noticed dyspnea on exertion and palpitations. This morning he woke up with significant palpitations. He denies associated chest pain. He denies a recent change in medications or known sick contacts. Related Data Home Medications Medication Instructions Recorded Confirmed amiodarone 200 mg tablet 100 mg PO QAM 04/27/20 06/01/23 furosemide 40 mg tablet 40 mg PO BID 12/12/20 06/01/23 febuxostat 40 mg tablet 40 mg PO DAILY 11/16/21 06/01/23 cyanocobalamin (vitamin B-12) 1,000 mcg PO DAILY 05/06/22 06/01/23 1,000 mcg tablet metolazone 2.5 mg tablet 2.5 mg PO DAILY 05/06/22 06/01/23 metoprolol tartrate 25 mg tablet 25 mg PO BID 05/06/22 06/01/23 gabapentin 300 mg capsule See Rx Instructions PO .COMPLEX 11/04/22 06/01/23 warfarin 4 mg tablet 4 mg PO 05/07/23 06/01/23 Allergies Allergy/AdvReac Type Severity Reaction Status Date / Time amoxicillin Allergy Mild Rash Verified 07/05/23 07:29 albuterol Allergy Unknown Unknown Verified 07/05/23 07:29 Review of Systems Review of Systems: CONSTITUTIONAL: Denies fever, chills, or sweats. CARDIOVASCULAR: Palpitations denies chest pain, edema. RESPIRATORY: Dyspnea on exertion denies cough GASTROINTESTINAL: Denies abdominal pain, nausea, vomiting, or diarrhea. GENITOURINARY: Denies dysuria or hematuria. SKIN: Denies rash or itching. MUSCULOSKELETAL: Denies back pain, joint pain, or myalgia. NEUROLOGIC: Generalized weakness denies headache, numbness, dizziness, PSYCHIATRIC: Denies anxiety or depression. [facility] Past Medical History Medical History Anemia, unspecified Atherosclerosis of aorta Cancer of kidney CHF (congestive heart failure) Chronic kidney disease, stage 4 (severe) Chronic obstructive pulmonary disease, unspecified Deficiency of other specified B group vitamins Enlarged prostate without lower urinary tract symptoms (luts) Essential (primary) hypertension Gout, unspecified Kidney stones Other hyperlipidemia Other specified crystal arthropathies, unspecified site Thoracic aortic aneurysm, without rupture 10-20 CT of chest 4.6 cm Type 2 diabetes mellitus with diabetic neuropathy, unspecified Type 2 diabetes mellitus with hyperglycemia Surgical History Surgical History History of back surgery Hx of laminectomy T7 Family History Family History Sibling Diabetes mellitus Mother Family history of Alzheimer's disease Family history of pancreatic cancer Other Family history of kidney stones Social History Social History Smoking status: Never smoker Tobacco type: cigarettes Alcohol intake: never Substance use: never Substance use type: does not use Lack of Transportation: No Lack of Food: Never True Current Housing: I Have Housing Concerned About Future Housing: No Difficulty Paying Gas/Electric Bills: No Difficulty Paying for Meds: No Currently Unemployed: No Education: High School Diploma/GED Difficulty w/ Childcare or Family Care: No Gender identity (if verbalized by the patient): Male Sexual Orientation (if Verbalized by the Patient): Straight or Heterosexual Spiritual care concerns: No Exam Narrative: GENERAL: Well-developed, well-nourished, and in no acute distress. HEAD: Normocephalic, atraumatic. EYES: PERRLA and EOMI. ENT: Nares clear, no rhinorrhea or epis
[2023-07-05 08:17] LABS: Magnesium 1.9 mg/dL (1.6-2.3)
[2023-07-05 08:22] LABS: INR 1.9; Partial Thromboplastin Time 43.8 SECONDS (22.3-36.8); Prothrombin Time 23.6 Seconds (11.1-14.7)
[2023-07-05] MEDS: dilTIAZem 100 MG/100 ML 100 MG/100 ML BAG IV CONT (08:55)
[2023-07-05] MEDS: AMIODARONE 150 MG/D5W 100 ML 150 MG/100 ML BAG 600 MG IV CONT (09:18)
[2023-07-05] MEDS: AMIODARONE 360 MG/D5W 200 ML 360 MG/200 ML BAG 33.33 MG IV CONT (09:43)
--- NOTE | 2023-07-05 11:50 | PM.CNCAR ---
Assessment and Plan Assessment and plan (1) Atrial fibrillation with RVR: Code(s): I48.91 - Unspecified atrial fibrillation Status: Acute Assessment and Plan: His onset of symptoms are likely secondary to atrial fibrillation with rapid ventricular response. Heart rate upon admission is nearly 160. He is now on amiodarone drip heart rate is in the 1 teens at this point. Will continue amiodarone drip for now. Also resume his metoprolol tartrate 25 mg p.o. b.i.d.. Will check a 2D echocardiogram Doppler. He is on anticoagulation in the form of warfarin. This will also be continued. Plan will be for cardioversion tomorrow. Will be kept NPO after midnight. l (2) Dyspnea: Qualifiers: Dyspnea type: shortness of breath Qualified Code(s): R06.02 - Shortness of breath Code(s): R06.00 - Dyspnea, unspecified Status: Acute Assessment and Plan: Likely diastolic in etiology and worsened by combination of his atrial fibrillation and aortic stenosis. Renal function is also acutely worsened. 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 He follows with Nephrology. Formally on furosemide 40 mg p.o. b.i.d. as well as metolazone 2.5 mg daily. (4) Non-ST elevation myocardial infarction (NSTEMI): Code(s): I21.4 - Non-ST elevation (NSTEMI) myocardial infarction Status: Acute Assessment and Plan: He has had some chest burning with his elevated heart rate. His non ST-elevation myocardial infarction is likely secondary to his AFib with RVR and secondary demand ischemia. Proceed with metoprolol. Aspirin 325 mg p.o. x1. Continue simvastatin (5) Aortic stenosis: Code(s): I35.0 - Nonrheumatic aortic (valve) stenosis Status: Acute Assessment and Plan: Will check a 2D echocardiogram Doppler. 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 INR daily History of Present Illness History of Present Illness Consult date/time: 07/05/23 11:50 Requesting physician: Ramon Gibson MD Consult reason: atrial fibrillation Reason For Visit: AFib with RVR Narrative: Reason for consultation: Atrial fibrillation with rapid ventricular response Date of service 07/05/2023 Requesting provider: Dr. Gibson History: Patient is an 87-year-old male patient Dr. Sesay who has a history of paroxysmal atrial fibrillation, CHF, aortic stenosis, cardiomyopathy, CKD, ascending aortic aneurysm and hypertension. He has been maintained on amiodarone but has had some breakthrough AFib and has been cardioverted at least twice in the past. He had been riding a stationary bike up until . He noticed his heart rate spiking up recently and he has been increasingly more short of breath. Over the past couple days he has been very short of breath with almost any activity and even with talking. He also has notices heart rate at home would go up to 140 or even above and dropped back down and go back up rapidly. He has been having some burning type of chest pain in his upper chest also. He came to hospital for further evaluation. He was found to be in atrial fibrillation with rapid ventricular response heart rate of nearly 160 beats per minute. Troponins are also elevated.
--- NOTE | 2023-07-05 11:55 | ADMGEN ---
This patient, Avery Lopez, was admitted to Intensive Care Unit-6 at 1133. Patient/family oriented to hospital policies and general routines including ID bracelet, bed and alarms, visiting hours, pain management, procedures, bathroom and other care routines, personal items, smoking policy, room service/diet, and visiting hours. Information on how to activate the Rapid Response Team has been discussed. Patient/Family are encouraged to report perceived risks to care and to ask questions if they do not understand what they are told or what they should do.
--- NOTE | 2023-07-05 12:07 | ADMGEN ---
This patient, Avery Lopez, was admitted to Intensive Care Unit-6. Patient/family oriented to hospital policies and general routines including ID bracelet, bed and alarms, visiting hours, pain management, procedures, bathroom and other care routines, personal items, smoking policy, room service/diet, and visiting hours. Information on how to activate the Rapid Response Team has been discussed. Patient/Family are encouraged to report perceived risks to care and to ask questions if they do not understand what they are told or what they should do.
--- NOTE | 2023-07-05 12:25 | WPDCNINT ---
Assessment and Plan Assessment and plan (1) Atrial fibrillation with RVR: Code(s): I48.91 - Unspecified atrial fibrillation Status: Acute Assessment and Plan: 07/05: Patient presented with shortness of breath and palpitations 2-3 days prior to admission -patient was found to be in atrial fibrillation with rapid ventricular response with heart rates in the 150s to 160s in the ER -patient was initially started on Cardizem bolus and infusion after which she dropped his blood pressures. Cardizem infusion was discontinued and patient was started on amiodarone bolus and amiodarone infusion. -appreciate cardiology evaluation recommending -metoprolol be started tonight -2D echo has been ordered -continue warfarin -plan for cardioversion on 07/06/2023 (2) Dyspnea: Qualifiers: Dyspnea type: shortness of breath Qualified Code(s): R06.02 - Shortness of breath Code(s): R06.00 - Dyspnea, unspecified Status: Acute Assessment and Plan: Likely related to AFib RVR, possible diastolic heart failure exacerbation and along with aortic stenosis. -patient on metolazone and furosemide at home, will hold hold for now 09/04 Chest x-ray: Cardiomegaly with mild pulmonary edema Patient was placed on BiPAP 08/27 on 35% FiO2 with adequate O2 sats (3) Acute on chronic renal failure: Code(s): N17.9 - Acute kidney failure, unspecified; N18.9 - Chronic kidney disease, unspecified Status: Acute Assessment and Plan: Patient with acute on chronic renal failure could be related to a combination of diuretics, AFib RVR with CHF exacerbation, moderate aortic stenosis -patient received 1 L of IV fluid bolus in the ER -given his diastolic dysfunction and CHF will use albumin for volume expansion at this time -continue to monitor urine output , renal function electrolytes (4) Diabetes mellitus with chronic kidney disease: Qualifiers: Chronic kidney disease stage: stage 4 (severe) 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 insulin 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: with exterminator use Diabetes mellitus type: type 2 Qualified Code(s): E11.22 - Type 2 diabetes mellitus with diabetic chronic kidney disease; N18.4 - Chronic kidney disease, stage 4 (severe); Z79.4 - residential (current) use of insulin Code(s): E11.22 - Type 2 diabetes mellitus with diabetic chronic kidney disease Status: Acute Assessment and Plan: Will add Accu-Cheks and sliding scale insulin (5) Non-ST elevation myocardial infarction (NSTEMI): Code(s): I21.4 - Non-ST elevation (NSTEMI) myocardial infarction Status: Acute Assessment and Plan: NSTEMI, elevated troponins -patient currently on Coumadin -patient was given dose of aspirin 325 mg p.o. x1 -likely secondary to demand ischemia and/or atrial fibrillation RVR -continue statin per Cardiology (6) Aortic stenosis: Code(s): I35.0 - Nonrheumatic aortic (valve) stenosis Status: Acute Assessment and Plan: 11/15/2021: Echocardiogram Summary ? 1. Complete two-dimensional, color flow and Doppler transthoracic echocardiogram is performed. ? 2. Left ventricular chamber dimension is normal. ? 3. Left ventricular systolic function is normal, estimated at 65-70%. ? 4. There is moderately increased left ventricular wall thickness. ? 5. The left ventricular diastolic function is grade II diastolic dysfunction. ? 6. Left atrial chamber dimension is moderately enlarged. ? 7. There is moderate aortic valve stenosis with a peak velocity of 231 cm/s, mean gradient of 12 mmHg, and aortic valve area of 1.2 cm2. ? 8. There is moderate aortic valve calcification. ? 9. The mitral valve has calcified leaflets and calcified annulus. ? 10. There is moderate mitral valve regurgitation. ? 11. There is mild tricuspid valve regurgitation. ? 12. Mild pulmonary hypertension, estimated pulmonary arterial systolic pressure is 35 mmHg. ? 13. There is mild pulmonic regurgitation. Plan DVT prophyla
[2023-07-05] MEDS: ALBUMIN HUMAN 25% 25 GM/100 ML 100 ML IVPB ×3 (13:07→23:58)
[2023-07-05] MEDS: ASPIRIN 325 MG TABLET PO (13:10)
--- NOTE | 2023-07-05 13:32 | PM.IMHP ---
H&P: HPI History of Present Illness Date/Time: 07/05/23 13:45 Chief Complaint: Shortness of breath and palpitations. Narrative: This is a very pleasant 87-year-old male with paroxysmal atrial fibrillation on warfarin, congestive heart failure, aortic stenosis, hypertension, chronic kidney disease, chronic obstructive pulmonary disease, hypothyroidism, and other comorbidities who presented to the emergency department for evaluation of shortness of breath and palpitations. The patient provides the following history. Over the last several days he has noticed that his heart has been racing and he has become increasingly dyspneic with lesser and lesser exertion. This morning he awoke with palpitations and reports that his heart rate at home has been erratic, jumping up to over 140 and going up and down rapidly. He complained of mild epigastric discomfort but denies nausea and vomiting. He also denies syncope, near syncope, chest pain, pleuritic pain, nausea, vomiting, sweats, and cough. On arrival to the ED he was found to be in atrial fibrillation with rapid ventricular response with heart rates of near 160 beats per minute. He was started on diltiazem drip but his blood pressures dropped and he has since been started on an amiodarone drip with improvement in his rate. Labs in the ED was significant for a WBC count of 11.6, INR 1.9, BUN 63, creatinine 4.20 (up from baseline which appears to range between 2.9 and 3.5), and a troponin which has trended from 2.230 --> 5.690 --> 15.000). EKG showed atrial fibrillation with rapid ventricular response and a left bundle-branch block without acute ST segment depressions or elevations. Chest x-ray showed cardiomegaly with mild pulmonary edema. CT of the abdomen and pelvis showed cholelithiasis without additional findings to suggest cholecystitis. He was started on BiPAP originally due to work of breathing and hypoxia but he has been weaned to 4 L nasal cannula. At the time my evaluation he reports feeling a lot better and his only complaint is that he is hungry. Review of Systems Review of Systems: Twelve systems were reviewed and are negative except for as per HPI. [facility] Past Medical History Medical History (Updated 07/05/23 @ 13:42 by Marleni Payne PA-C) Anemia, unspecified Atherosclerosis of aorta Cancer of kidney Chronic kidney disease, stage 4 (severe) Chronic obstructive pulmonary disease, unspecified Congestive heart failure Echocardiogram in October 2021 showed normal LV chamber size and function with an EF estimated at 65 to 70%, moderately increased LV wall thickness, grade 2 diastolic dysfunction. Deficiency of other specified B group vitamins Enlarged prostate without lower urinary tract symptoms (luts) Essential (primary) hypertension Gout, unspecified Hypothyroidism Kidney stones Other hyperlipidemia Other specified crystal arthropathies, unspecified site Paroxysmal atrial fibrillation Thoracic aortic aneurysm, without rupture 10-20 CT of chest 4.6 cm Type 2 diabetes mellitus with diabetic neuropathy, unspecified Surgical History Surgical History (Updated 07/05/23 @ 13:38 by Marleni Payne PA-C) History of back surgery History of laminectomy T7. Family History Family History Sibling Diabetes mellitus Mother Family history of Alzheimer's disease Family history of pancreatic cancer Other Family history of kidney stones Social History Social History (Updated 07/05/23 @ 13:39 by Marleni Payne PA-C) Social History: Surrogate medical decision maker: Radha Lopez, daughter. Code status: Full code. Smoking packs per day: 0.5 Smoking cigarettes per day: 10.0 Years smoked: 30 Smoking pack-years: 15.00 Smoking status: Former smoker Tobacco type: cigarettes Smoking end date: 11/23/87 Alcohol intake: never Substance use: never Substance use type: does not use Lack of Transpo
[2023-07-05 15:18] LABS: Hemoglobin A1C 6.8 % (<5.7)
[2023-07-05] MEDS: AMIODARONE 360 MG/D5W 200 ML 360 MG/200 ML BAG 16.67 MG IV CONT (15:28)
[2023-07-05] MEDS: WARFARIN (*PBKC) 5 MG TABLET PO (17:19)
[2023-07-05 17:21] LABS: Glucose Point of Care 158 mg/dl (65-105)
[2023-07-05] MEDS: METOPROLOL TARTRATE 25 MG TABLET PO (20:18)
[2023-07-06] VITALS (33 sets, daily range): BP systolic 86–121; BP diastolic 67–90; PULSE 62–136; RESP 18–33; TEMP 36.8–38.2; O2SAT 86–99
--- NOTE | 2023-07-06 | ECHO_ITS ---
Patient Info Name: Avery Lopez Age: 87 years : 1935 Gender: Male Ht: 70 in Wt: 236 lbs BSA: 2.34 m2 HR: 113 bpm BP: 96 / 79 mmHg Heart Rhythm: Atrial Fibrillation, Tachycardia Technical Quality: Fair Exam Date: 07/06/2023 8:53 AM Exam Location: [facility] Patient Status: Inpatient Admit Date: 07/05/2023 Staff Ordering Physician: Kee Rushing MD Product Safety Technician: Yue Flores RDCS Attending Provider: Rhys Toro MD Referring Physician: Сергей LOPEZ; Exam Type: CA echo dop color flow w con Study Info Indications - , NON STEMI, AF Complete two-dimensional, color flow and Doppler transthoracic echocardiogram is performed. Summary 1. Complete two-dimensional, color flow and Doppler transthoracic echocardiogram is performed. 2. Technically difficult study. Definity echo contrast administered. 3. Left ventricular chamber dimension is normal. 4. Left ventricular systolic function is mild to moderately reduced, estimated at 40-45%. 5. There is moderately increased left ventricular wall thickness. 6. Left ventricular septal wall motion is abnormal with septal motion related to bundle branch block. 7. Right atrial chamber dimension is moderately enlarged. 8. There is moderate aortic valve stenosis with a peak velocity of 209.42 cm/s, mean gradient of 6 mmHg, and aortic valve area of 1.11 cm2. 9. Moderate pulmonary hypertension, estimated pulmonary arterial systolic pressure is 51 mmHg. 10. There is mild tricuspid valve regurgitation. Left Ventricle Left ventricular chamber dimension is normal. Left ventricular systolic function is mild to moderately reduced, estimated at 40-45%. There is moderately increased left ventricular wall thickness. Left ventricular septal wall motion is abnormal with septal motion related to bundle branch block. The left ventricular diastolic function is indeterminate. Technically difficult study. Definity echo contrast administered. Right Ventricle Right ventricular chamber dimension is normal. Right ventricular systolic function is reduced. Linear artifact in right ventricle suggestive of catheter(s), pacemaker lead(s), or ICD lead(s). Left Atria Left atrial chamber dimension is mildly enlarged. Right Atria Right atrial chamber dimension is moderately enlarged. Aortic Valve The aortic valve is trileaflet. There is moderate aortic valve stenosis with a peak velocity of 209.42 cm/s, mean gradient of 6 mmHg, and aortic valve area of 1.11 cm2. There is no aortic valve regurgitation. There is moderate aortic valve calcification. Pulmonic Valve The pulmonic valve is not well visualized. Mitral Valve The mitral valve has thickened leaflets. There is mild mitral valve regurgitation. The mitral valve annulus is mildly calcified. Tricuspid Valve The tricuspid valve leaflets are normal. There is mild tricuspid valve regurgitation. Moderate pulmonary hypertension, estimated pulmonary arterial systolic pressure is 51 mmHg. Pericardium/Pleural The pericardium appears normal. There is trivial pericardial effusion. Inferior Vena Cava Dilated inferior vena cava with <50% collapse upon inspiration consistent with significantly elevated right atrial pressure, 15 mmHg. Aorta The aortic root size at the sinus of Valsalva is normal. There is mild-moderate aortic atherosclerosis. Left Ventricular Outflow Tract Name Value Normal
--- NOTE | 2023-07-06 | ECG_ITS ---
Measurements Intervals [place] Rate: 130 P: MO: 0 QRS: -29 QRSD: 169 T: 109 QT: 373 QTc: 550 Interpretive Statements ATRIAL FIBRILLATION WITH RAPID VENTRICULAR RESPONSE LEFT BUNDLE BRANCH BLOCK [120+ ms QRS DURATION, 80+ ms Q/S IN V1/V2, 85+ ms R IN I/aVL/V5/V6] ABNORMAL ECG COMPARED TO ECG 07/05/2023 08:14:56 NO SIGNIFICANT CHANGES Electronically Signed On 07-06-2023 16:57:56 CDT by Srinivas Her M.D.
[2023-07-06] MEDS: INSULIN ASPART (*BKC) 100 UNITS/ML SUB-Q ×3 (00:01→23:34)
[2023-07-06 00:03] LABS: Glucose Point of Care 230 mg/dl (65-105)
[2023-07-06] MEDS: AMIODARONE 360 MG/D5W 200 ML 360 MG/200 ML BAG 16.67 MG IV CONT (02:39)
[2023-07-06 04:37] LABS: Basophils Percent Auto 0.4 % (0.2-1.2); Eosinophils Absolute Auto 0.3 K/mm3 (0-0.3); Eosinophils Percent Auto 3.2 % (0-4.4); Hematocrit 30.6 % (42.0-52.0); Hemoglobin 9.7 g/dL (14.0-18.0); Immature Granulocyte Absolute 0.05 K/mm3 (0.00-0.031); Immature Granulocyte Percent A 0.5 % (0-0.5); Lymphocytes Absolute Auto 1.19 K/mm3 (0.9-3.2); Lymphocytes Percent Auto 12.7 % (18.3-44.2); Mean Corpuscular HGB Conc 31.7 g/dl (32-36); Mean Corpuscular Hemoglobin 30.4 pg (26-34); Mean Corpuscular Volume 95.9 fl (80-100); Mean Platelet Volume 11.2 fl (7.4-10.4); Monocytes Absolute Auto 0.9 K/mm3 (0.1-0.6); Monocytes Percent Auto 9.6 % (2.6-8.5); Neutrophils Absolute Auto 6.9 K/mm3 (1.3-6.7); Neutrophils Percent Auto 73.6 % (45.5-73.1); Platelet Count Result 179 k/mm3 (150-375); Red Blood Count 3.19 M/mm3 (4.6-6.20); Red Cell Distribution Width 14.2 % (11.5-14.5); White Blood Count 9.4 K/mm3 (4.5-10.0)
[2023-07-06 04:46] LABS: INR 2.1; Prothrombin Time 24.7 Seconds (11.1-14.7)
[2023-07-06 04:47] LABS: Partial Thromboplastin Time 55.7 SECONDS (22.3-36.8)
[2023-07-06 04:57] LABS: Potassium 3.8 mmol/L (3.4-5.0)
[2023-07-06 05:02] LABS: Alanine Aminotransferase 15 U/L (6-50); Albumin Level 4.2 g/dL (3.5-5.1); Alkaline Phosphatase 49 U/L (38-126); Anion Gap 12 mmol/L (8-16); Aspartate Amino Transferase 36 U/L (17-59); Bilirubin,Total 0.5 mg/dL (0.2-1.3); Blood Urea Nitrogen 63 mg/dL (9-20); Calcium 8.1 mg/dL (8.4-10.2); Carbon Dioxide 22 mmol/L (22-30); Chloride 97 mmol/L (98-107); Estimated CRCL calculation 14 ml/min; Estimated Glomerular Filt Rate 14; Glucose 243 mg/dL (65-110); Magnesium 1.8 mg/dL (1.6-2.3); Phosphorus 4.8 mg/dL (2.5-4.5); Sodium 131 mmol/L (137-145)
[2023-07-06] MEDS: ALBUMIN HUMAN 25% 25 GM/100 ML 100 ML IVPB (05:55)
[2023-07-06] MEDS: AMIODARONE 150 MG/D5W 100 ML 150 MG/100 ML BAG 600 MG IV CONT (07:23)
[2023-07-06] MEDS: FUROSEMIDE INJ 40 MG/4 ML VIAL 20 MG IV PUSH ×2 (08:09→11:51)
[2023-07-06] MEDS: PERFLUTREN LIPID MICROSPHERES 1.5 ML VIAL DILUTED TO 10 ML TOTAL VOLUME IV PUSH (09:45)
--- NOTE | 2023-07-06 10:30 | ECG_ITS ---
Measurements Intervals [place] Rate: 77 P: 69 AK: 247 QRS: -32 QRSD: 161 T: 140 QT: 450 QTc: 511 Interpretive Statements SINUS RHYTHM WITH FIRST DEGREE AV BLOCK MARKED LEFT AXIS DEVIATION [QRS AXIS < -30] LEFT BUNDLE BRANCH BLOCK [120+ ms QRS DURATION, 80+ ms Q/S IN V1/V2, 85+ ms R IN I/aVL/V5/V6] ABNORMAL ECG COMPARED TO ECG 07/06/2023 10:16:00 SINUS RHYTHM REPLACES ATRIAL FIBRILLATION Electronically Signed On 07-06-2023 17:02:31 CDT by Srinivas Her M.D.
[2023-07-06] MEDS: PROPOFOL IV EMULSION 200 MG/20 ML VIAL 20 MG IV PUSH (11:23)
--- NOTE | 2023-07-06 11:30 | PM.PNCARD ---
Progress Note: A&P Assessment and Plan (1) Atrial fibrillation with RVR: Code(s): I48.91 - Unspecified atrial fibrillation Status: Acute Assessment and Plan: His onset of symptoms are likely secondary to atrial fibrillation with rapid ventricular response. Heart rate upon admission is nearly 160. He is now on amiodarone drip heart rate is in the 1 teens at this point. Will continue amiodarone drip for now. Also resume his metoprolol tartrate 25 mg p.o. b.i.d.. Will check a 2D echocardiogram Doppler. He is on anticoagulation in the form of warfarin. Patient was hypotensive overnight although systolic blood pressure in low 100s this morning. He remains on high-flow nasal cannula FiO2 80%. Discussed with patient and family at bedside risks associated Versed and fentanyl as well as propofol. Propofol felt to be safer option given shorter duration of action given respiratory and hemodynamic risks. Discussed with Dr. Her who also agreed with this conclusion and was willing to proceed with profile as he is credentialed to utilize this protocol. Discussed with Dr. Gaines critical care physician who was willing to administer anesthesia to cardioversion therefore we will proceed. Informed patient family this plan who also agreed. All questions answered to their satisfaction. We discussed risks regarding respiratory failure, potential need for intubation, hemodynamic compromise low blood pressure need for support in addition to standard risk for stroke and a for ongoing anticoagulation which has not been interrupted therefore cardioversion without MIN guidance was appropriate. (2) Congestive heart failure: Code(s): I50.9 - Heart failure, unspecified Status: Acute Assessment and Plan: Acute on chronic probable diastolic heart failure secondary to AFib with RVR, underlying CAD in setting of NSTEMI. Diuresis able caution with given hypotension. Again, decision to proceed sooner than later with cardioversion to restore sinus rhythm and improve cardiac efficiency for management of respiratory failure, CHF and relative hypotension. As above, these risks were discussed at length balanced with benefits. (3) Non-ST elevation myocardial infarction (NSTEMI): Code(s): I21.4 - Non-ST elevation (NSTEMI) myocardial infarction Status: Acute Assessment and Plan: He had some chest burning with his elevated heart rate although denies chest pain at this time. His non ST-elevation myocardial infarction is likely secondary to his AFib with RVR and secondary demand ischemia. Troponin has increased to 15. Stabilize clinically with further ischemic workup as appropriate. Review 2D echocardiogram when available. 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 He follows with Nephrology. Formally on furosemide 40 mg p.o. b.i.d. as well as metolazone 2.5 mg daily. (5) Aortic stenosis: Code(s): I35.0 - Nonrheumatic aortic (valve) stenosis Status: Acute Assessment and Plan: Will check a 2D echocardiogram Doppler. At least mild to moderate aortic stenosis previously. Pending thus far. Recommendation to follow. (6) Chronic anticoagulation: Code(s): Z79.01 - restaurant hourly team member (current) use of anticoagulants Status: Acute Assessment and Plan: On warfarin 4 mg daily and 6 mg 2 times weekly. INR daily, continue goal INR 2-3. Monitor daily while in the hospital her therapeutic 2.1 to
--- NOTE | 2023-07-06 11:38 | P.PCNCVR_ITS ---
Cardioversion Cardioversion Date of procedure: 07/06/23 Procedure: Elective electrical cardioversion Pre-op diagnosis: Atrial fibrillation with rapid ventricular response Post-op diagnosis: Same Indications: Atrial fibrillation with rapid ventricular response Description of procedure: Brief history present illness: Patient is a pleasant 87-year-old male followed by Dr. Sesay as an outpatient with a history of paroxysmal atrial fibrillation chronic anticoagulation, CHF, aortic stenosis, CKD, ascending aortic aneurysm and hype rtension with a history of referred for elective electrical cardioversion in attempt to restore sinus rhythm admitted with tachycardia, progressive shortness of breath and atypical chest pain present emergency department found to be in AFib with RVR with heart rates up to 160 beats per minute. Patient was on high- flow nasal cannula FiO2 80% prior to beginning the procedure. Patient and his family were informed he is at high risk for complications given his respiratory status. They verbalized understanding wished to proceed. Sedation: Moderate Sedation/Anesthesia administration: Patient denied previous intolerance or complications with anesthesia/sedation. Please see critical care documentation by Dr. Gaines for details regarding se dation/anesthesia as he was responsible and administered anesthesia at bedside in the ICU. There were no other issues or complications and patient tolerated the procedure well and sedation protocol well and I was present for the entirety. Findings: Procedure in detail: After verbal and written informed consent was obtained the patient risks, benef its, and alternatives explained in detail the patient agreed to proceed with the plan of care as outlined above. Patient was evaluated at bedside in the intensive care unit room. On examination, neck was supple with normal range of motion, no restrictions to opening of the oral cavity, jaw angle and posterior hypopharynx was clear. Lungs bilateral crackles. Patient was placed in appropriate 30 to 45 degree angle in a supine position. Patient was monitored throughout the study with telemetry, oxygen saturation, blood pressure, heart rate, and respirations. Anterior and posterior defibrillator pads placed in the appropriate positions. After confirmation of adequate sedation administered by Dr. Gaines, cardioversion was carried out without complication. Patient tolerated the procedure well without difficulty. Elective electrical cardioversion: After confirmation of adequate sedation and persistence of atrial fibrillation, 200 joules synched biphasic energy x1 was delivered with immediate confucianism of sinus rhythm. Twelve lead EKG was obtained postprocedure confirming sinus rhythm. Complications: None Conclusion: Successful confucianism of sinus rhythm using 200 joules synched biphasic energy x1 without immediate complication. Twelve lead ECG post cardioversion confirms sinus rhythm. Recommendations: Continue systemic anticoagulation without interruption if possible for least the next 30 days.
[2023-07-06] MEDS: METOPROLOL TARTRATE 25 MG TABLET PO ×2 (11:50→20:15)
[2023-07-06] MEDS: AMIODARONE 360 MG/D5W 200 ML 360 MG/200 ML BAG 33.33 MG IV CONT ×3 (11:51→23:38)
[2023-07-06 12:02] LABS: Free T4 Free Thyroxine Reflex 2.71 ng/dL (0.78-2.19)
[2023-07-06 12:07] LABS: Glucose Point of Care 180 mg/dl (65-105)
[2023-07-06 12:40] LABS: Appearance Urine Cloudy (Clear); Bacteria Urine None Seen /hpf; Bilirubin Urine Negative (Negative); Blood Urine Negative (Negative); Color Urine Yellow (Yellow); Glucose Urine UA Negative (Negative); Ketones Urine Negative (Negative); Leukocyte Esterase Ur Negative LEU/UL (Negative); Nitrate Urine Negative (Negative); Protein Urine Negative (Negative); RBC Urine 0-2 /hpf (0-2); Specific Grav Ur 1.018 (1.001-1.035); Squamous Epithelial Cell Urine None seen /hpf (Few); Urobilinogen Urine 0.2 mg/dL (<2.0); WBC Urine 0-5 /hpf
[2023-07-06 12:48] LABS: Add Urine Microscopic? YES
--- NOTE | 2023-07-06 13:36 | WPDINTPN ---
Progress Note: A&P Assessment and Plan (1) Atrial fibrillation with RVR: Code(s): I48.91 - Unspecified atrial fibrillation Status: Acute Assessment and Plan: 07/05: Patient presented with shortness of breath and palpitations 2-3 days prior to admission -patient was found to be in atrial fibrillation with rapid ventricular response with heart rates in the 150s to 160s in the ER -patient was initially started on Cardizem bolus and infusion after which she dropped his blood pressures. Cardizem infusion was discontinued and patient was started on amiodarone bolus and amiodarone infusion. -appreciate cardiology evaluation recommending -metoprolol be started tonight -2D echo has been ordered -continue warfarin -07/06: Successfully cardioverted this morning with episcopal of sinus rhythm using 200 joules synchronous biphasic energy. He converted back to sinus rhythm with type 1 av block. -received Lasix this morning, good urine output (2) Dyspnea: Qualifiers: Dyspnea type: shortness of breath Qualified Code(s): R06.02 - Shortness of breath Code(s): R06.00 - Dyspnea, unspecified Status: Acute Assessment and Plan: Likely related to AFib RVR, possible diastolic heart failure exacerbation and along with aortic stenosis. -patient on metolazone and furosemide at home, will hold hold for now 09/04 Chest x-ray: Cardiomegaly with mild pulmonary edema Continue BiPAP and Vapotherm intermittently as needed, wean FiO2 as tolerated (3) Acute on chronic renal failure: Code(s): N17.9 - Acute kidney failure, unspecified; N18.9 - Chronic kidney disease, unspecified Status: Acute Assessment and Plan: Patient with acute on chronic renal failure could be related to a combination of diuretics, AFib RVR with CHF exacerbation, moderate aortic stenosis -patient received 1 L of IV fluid bolus in the ER and some albumin for volume expansion -given his diastolic dysfunction and CHF -continue to monitor urine output , renal function electrolytes (4) Diabetes mellitus with chronic kidney disease: Qualifiers: Diabetes mellitus type: type 2 Diabetes mellitus detention insulin use: with detention use Chronic kidney disease stage: stage 4 (severe) Qualified Code(s): E11.22 - Type 2 diabetes mellitus with diabetic chronic kidney disease; N18.4 - Chronic kidney disease, stage 4 (severe); Z79.4 - oysterman (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 x1 -likely secondary to demand ischemia and/or atrial fibrillation RVR -continue statin per Cardiology (6) Aortic stenosis: Code(s): I35.0 - Nonrheumatic aortic (valve) stenosis Status: Acute Assessment and Plan: 11/15/2021: Echocardiogram Summary ? 1. Complete two-dimensional, color flow and Doppler transthoracic echocardiogram is performed. ? 2. Left ventricular chamber dimension is normal. ? 3. Left ventricular systolic function is normal, estimated at 65-70%. ? 4. There is moderately increased left ventricular wall thickness. ? 5. The left ventricular diastolic function is grade II diastolic dysfunction. ? 6. Left atrial chamber dimension is moderately enlarged. ? 7. There is moderate aortic valve stenosis with a peak velocity of 231 cm/s, mean gradient of 12 mmHg, and aortic valve area of 1.2 cm2. ? 8. There is moderate aortic valve calcification. ? 9. The mitral valve has calcified leaflets and calcified annulus. ? 10. There is moderate mitral valve regurgitation. ? 11. There is mild
[2023-07-06] MEDS: WARFARIN (*PBKC) 5 MG TABLET PO (17:57)
[2023-07-06 18:34] LABS: Glucose Point of Care 198 mg/dl (65-105)
[2023-07-06] MEDS: MELATONIN 5 MG TABLET PO (22:26)
[2023-07-06 22:30] LABS: Glucose Point of Care 209 mg/dl (65-105)
[2023-07-07] VITALS (21 sets, daily range): BP systolic 102–124; BP diastolic 67–89; PULSE 61–74; RESP 15–28; TEMP 36.5–37.4; O2SAT 93–100
[2023-07-07] MEDS: LORazepam INJ (*CRX) 2 MG/ML VIAL 1 MG IV PUSH (03:17)
[2023-07-07] MEDS: FUROSEMIDE INJ 40 MG/4 ML VIAL IV PUSH (03:18)
[2023-07-07] MEDS: MORPHINE SULFATE (*CRX) 2 MG/ML INJ 1 MG IV PUSH (03:18)
--- NOTE | 2023-07-07 04:03 | PC.NURSE ---
Patient called out at 0325 complaining of difficulty breathing. Patient on vapotherm at 45 L and 70% FiO2. Patient SpO2 95%. Patient using accessory muscles to breathe and stated I can't catch my breath. Patient unable to sleep this shift and becoming increasingly restless. Patient refused BiPap at the beginning of the shift but agreed to be placed on this morning for increased support. Early in the shift patient stated he would like to be comfort measures and no longer receive aggressive therapy. Patient restated this at 0320 when he called out for increased shortness of breath. Patient alert and oriented x 4 when making this decision. CHACHO Herring and Mary RN were both witness to patient making this decision. Received orders from Dr. Meza for a Stat CXR and Lasix, IVP Ativan, and morphine to help with increased work of breathing. Patient's daughter Radha updated and at patient's bedside at 0400. Will continue to monitor.
[2023-07-07 04:31] LABS: Basophils Percent Auto 0.3 % (0.2-1.2); Eosinophils Absolute Auto 0.3 K/mm3 (0-0.3); Eosinophils Percent Auto 3.2 % (0-4.4); Hematocrit 32.5 % (42.0-52.0); Immature Granulocyte Absolute 0.07 K/mm3 (0.00-0.031); Immature Granulocyte Percent A 0.7 % (0-0.5); Lymphocytes Absolute Auto 0.87 K/mm3 (0.9-3.2); Lymphocytes Percent Auto 8.2 % (18.3-44.2); Mean Corpuscular HGB Conc 30.8 g/dl (32-36); Mean Corpuscular Hemoglobin 30.7 pg (26-34); Mean Corpuscular Volume 99.7 fl (80-100); Mean Platelet Volume 11.7 fl (7.4-10.4); Monocytes Absolute Auto 1.1 K/mm3 (0.1-0.6); Monocytes Percent Auto 10.1 % (2.6-8.5); Neutrophils Absolute Auto 8.3 K/mm3 (1.3-6.7); Neutrophils Percent Auto 77.5 % (45.5-73.1); Platelet Count Result 176 k/mm3 (150-375); Red Blood Count 3.26 M/mm3 (4.6-6.20); Red Cell Distribution Width 14.3 % (11.5-14.5); White Blood Count 10.7 K/mm3 (4.5-10.0)
[2023-07-07 04:40] LABS: INR 1.8; Prothrombin Time 22.3 Seconds (11.1-14.7)
[2023-07-07 04:41] LABS: Partial Thromboplastin Time 48.4 SECONDS (22.3-36.8)
[2023-07-07 05:00] LABS: Alkaline Phosphatase 39 U/L (38-126); Phosphorus 5.5 mg/dL (2.5-4.5); Potassium 4.2 mmol/L (3.4-5.0)
[2023-07-07 05:01] LABS: Alanine Aminotransferase 18 U/L (6-50); Albumin Level 4.2 g/dL (3.5-5.1); Anion Gap 13 mmol/L (8-16); Aspartate Amino Transferase 42 U/L (17-59); Bilirubin,Total 0.8 mg/dL (0.2-1.3); Blood Urea Nitrogen 78 mg/dL (9-20); Calcium 7.9 mg/dL (8.4-10.2); Carbon Dioxide 18 mmol/L (22-30); Chloride 97 mmol/L (98-107); Estimated CRCL calculation 12 ml/min; Estimated Glomerular Filt Rate 12; Glucose 157 mg/dL (65-110); Magnesium 2.1 mg/dL (1.6-2.3); Sodium 128 mmol/L (137-145)
[2023-07-07] MEDS: AMIODARONE 360 MG/D5W 200 ML 360 MG/200 ML BAG 33.33 MG IV CONT (05:29)
[2023-07-07] MEDS: LEVOTHYROXINE SODIUM 112 MCG TABLET PO (08:42)
[2023-07-07] MEDS: metOLazone 2.5 MG TABLET PO (08:42)
[2023-07-07] MEDS: FUROSEMIDE INJ 100 MG/10 ML VIAL 80 MG IV PUSH (08:42)
--- NOTE | 2023-07-07 08:48 | PC.NURSE ---
Patient requesting BiPaP. Visitors at bedside.
--- NOTE | 2023-07-07 09:05 | WPDINTPN ---
Progress Note: A&P Assessment and Plan (1) Atrial fibrillation with RVR: Code(s): I48.91 - Unspecified atrial fibrillation Status: Acute Assessment and Plan: 07/05: Patient presented with shortness of breath and palpitations 2-3 days prior to admission -patient was found to be in atrial fibrillation with rapid ventricular response with heart rates in the 150s to 160s in the ER -patient was initially started on Cardizem bolus and infusion after which she dropped his blood pressures. Cardizem infusion was discontinued and patient was started on amiodarone bolus and amiodarone infusion. - cardiology was consulted -07/06: Successfully cardioverted this morning with presybeterian of sinus rhythm using 200 joules synchronous biphasic energy. He converted back to sinus rhythm with type 1 av block. -patient now in sinus bradycardia with heart rate close to 60. Will hold metoprolol -2D echo as below -continue warfarin (2) Acute respiratory failure: Code(s): J96.00 - Acute respiratory failure, unspecified whether with hypoxia or hypercapnia Status: Acute Assessment and Plan: Acute respiratory failure secondary to pulmonary edema which is multifactorial secondary to congestive heart failure, aortic stenosis, acute on chronic kidney disease and AFib with RVR Chest x-ray reviewed and shows pulmonary edema small effusions and cardiomegaly Continue Lasix but increase dose, resume metolazone Patient does not tolerate BiPAP for prolonged period of time is willing to try or short-term basis and at night Continue BiPAP p.r.n. and at night and continue Vapotherm for now. wean FiO2 as tolerated We discuss possibility of him needing intubation mechanical ventilation and patient clearly stated that he does not wish to go on a ventilator and any cause and wants to be DNI. (3) Acute on chronic renal failure: Code(s): N17.9 - Acute kidney failure, unspecified; N18.9 - Chronic kidney disease, unspecified Status: Acute Assessment and Plan: Patient has significant chronic kidney disease at baseline and now the renal function has worsened leading to acute on chronic renal failure. This is related to a combination of diabetes, diuretics, AFib RVR with CHF exacerbation, moderate aortic stenosis -patient initially received 1 L of IV fluid bolus in the ER and some albumin for volume expansion -although his creatinine continues to worsen, he now has pulmonary edema and will continue Lasix but at higher dose -if renal function continues to deteriorate or does not improve, patient may need hemodialysis -will consult Nephrology -continue to monitor urine output , renal function electrolytes (4) Diabetes mellitus with chronic kidney disease: Qualifiers: Diabetes mellitus type: type 2 Diabetes mellitus 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 insulin use: with correction use Chronic kidney disease stage: stage 4 (severe) Qualified Code(s): E11.22 - Type 2 diabetes mellitus with diabetic chronic kidney disease; N18.4 - Chronic kidney disease, stage 4 (severe); Z79.4 - oysterman (current) use of insulin Code(s): E11.22 - Type 2 diabetes mellitus with diabetic chronic kidney disease Status: Acute Assessment and Plan: Continue Accu-Cheks and sliding scale insulin (5) Non-ST elevation myocardial infarction (NSTEMI): Code(s): I21.4 - Non-ST elevation (NSTEMI) myocardial infarction Status: Acute Assessment and Plan: NSTEMI, elevated troponins -patient currently on Coumadin, aspirin -likely secondary to demand ischemia and/or atrial fibrillation RVR -continue statin per Cardiology (6) Aortic stenosis: Code(s): I35.0 - Nonrheumatic aortic (valve) stenosis Status: Acute Assessment and Plan: 07/06/23:: Echocardiogram Summary ? 1. Complete two-dimensional, color flow and Doppler transthoracic echocardiogram is performed. ? 2. Technically difficult study.? Definity echo contrast administered. ? 3.
--- NOTE | 2023-07-07 09:41 | P.CONNP_ITS ---
Assessment and Plan Assessment and plan (1) JOHNATHAN (acute kidney injury): Code(s): N17.9 - Acute kidney failure, unspecified Status: Acute Assessment and Plan: * multifactorial etiology: * Afib with RVR * NSTEMI * CHF * aortic stenosis * hemodynamic instability * concerning that renal function/continues to deteriorate with worsening UOP * follow trend of repeat labs and UOP * remains at high risk for DIRECTOR OF PHOTOGRAPHY/dialysis (2) Chronic kidney disease, stage IV (severe): Code(s): N18.4 - Chronic kidney disease, stage 4 (severe) Status: Chronic Assessment and Plan: * baseline creatinine runs ~ 2.8 - 3.5mg/dl but has fluctuated to extremes in the past (usually due to adjustent in diuretic therapy) * due to CHF (and associated need for diuretics), hypertension, hypetension, diabetes and age-related change based on outpatient evaluation * he does have known renal cell carcinoma as well which did not really seem to play much role with his overall kidney function for the last few years (3) Acute respiratory failure: Code(s): J96.00 - Acute respiratory failure, unspecified whether with hypoxia or hypercapnia Status: Acute Assessment and Plan: * secondary to pulmonary edema likely precipitated by afib with RVR, CHF, NSTEMI, aortic stenosis, and worsening renal dysfunction * higher dose diuretics being initiated * BiPAP support PRN * if volume status fails to improve with conservative therapy, may need DIRECTOR OF PHOTOGRAPHY/dialysis support * follow I/Os, daily weights, and respiratory status (4) Non-ST elevation myocardial infarction (NSTEMI): Code(s): I21.4 - Non-ST elevation (NSTEMI) myocardial infarction Status: Acute Assessment and Plan: * as noted by trend of troponins * likely triggered by afib with RVR and associated demand ischemia * on anticoagulation already * Cardiology following (5) Atrial fibrillation with RVR: Code(s): I48.91 - Unspecified atrial fibrillation Status: Acute Assessment and Plan: * as noted on presentation * s/p cardioversion yesterday * rate control strategy * on coumadin (6) Diabetes mellitus with chronic kidney disease: Qualifiers: Diabetes mellitus type: type 2 Diabetes mellitus penitentiary insulin use: with penitentiary use Chronic kidney disease stage: stage 4 (severe) Qualified Code(s): E11.22 - Type 2 diabetes mellitus with diabetic chronic kidney disease; N18.4 - Chronic kidney disease, stage 4 (severe); Z79.4 - [facility] (current) use of insulin Code(s): E11.22 - Type 2 diabetes mellitus with diabetic chronic kidney disease Status: Acute Assessment and Plan: * follow accu-cheks * glycemic control per hospitalists/performance test architect Long and lengthy discussion (greater than 25 minutes) with the patient as well as his 2 daughters at bedside regarding his worsening renal dysfunction in conjunction with worsening respiratory status felt to be secondary to pulmonary edema/volume overload. I voiced my concerns that conservative therapy may not be enough to optimize his respiratory status and he may require renal replacement therapy/dialysis. The patient and I have discussed dialysis before in the past and he has told me that he would be willing to do it if he had no choice and based on my conversation with him today, he maintains this reasoning and is willing to pursue dialysis currently if all other therapies fail to improve his clinical status. We will see what his repeat labs show tomorrow morning as well as assess how he responds to diuretic therapy overnight before
--- NOTE | 2023-07-07 09:41 | PM.CNNEP ---
Assessment and Plan Assessment and plan (1) JOHNATHAN (acute kidney injury): Code(s): N17.9 - Acute kidney failure, unspecified Status: Acute Assessment and Plan: multifactorial etiology: Afib with RVR NSTEMI CHF aortic stenosis hemodynamic instability concerning that renal function/continues to deteriorate with worsening UOP follow trend of repeat labs and UOP remains at high risk for TRAFFIC INCIDENT MANAGEMENT MANAGER/dialysis (2) Chronic kidney disease, stage IV (severe): Code(s): N18.4 - Chronic kidney disease, stage 4 (severe) Status: Chronic Assessment and Plan: baseline creatinine runs ~ 2.8 - 3.5mg/dl but has fluctuated to extremes in the past (usually due to adjustent in diuretic therapy) due to CHF (and associated need for diuretics), hypertension, hypetension, diabetes and age-related change based on outpatient evaluation he does have known renal cell carcinoma as well which did not really seem to play much role with his overall kidney function for the last few years (3) Acute respiratory failure: Code(s): J96.00 - Acute respiratory failure, unspecified whether with hypoxia or hypercapnia Status: Acute Assessment and Plan: secondary to pulmonary edema likely precipitated by afib with RVR, CHF, NSTEMI, aortic stenosis, and worsening renal dysfunction higher dose diuretics being initiated BiPAP support PRN if volume status fails to improve with conservative therapy, may need TRAFFIC INCIDENT MANAGEMENT MANAGER/dialysis support follow I/Os, daily weights, and respiratory status (4) Non-ST elevation myocardial infarction (NSTEMI): Code(s): I21.4 - Non-ST elevation (NSTEMI) myocardial infarction Status: Acute Assessment and Plan: as noted by trend of troponins likely triggered by afib with RVR and associated demand ischemia on anticoagulation already Cardiology following (5) Atrial fibrillation with RVR: Code(s): I48.91 - Unspecified atrial fibrillation Status: Acute Assessment and Plan: as noted on presentation s/p cardioversion yesterday rate control strategy on coumadin (6) Diabetes mellitus with chronic kidney disease: Qualifiers: Diabetes mellitus type: type 2 Diabetes mellitus mcc insulin use: with termite helper use Chronic kidney disease stage: stage 4 (severe) Qualified Code(s): E11.22 - Type 2 diabetes mellitus with diabetic chronic kidney disease; N18.4 - Chronic kidney disease, stage 4 (severe); Z79.4 - assisted (current) use of insulin Code(s): E11.22 - Type 2 diabetes mellitus with diabetic chronic kidney disease Status: Acute Assessment and Plan: follow accu-cheks glycemic control per hospitalists/infectious disease physician Long and lengthy discussion (greater than 25 minutes) with the patient as well as his 2 daughters at bedside regarding his worsening renal dysfunction in conjunction with worsening respiratory status felt to be secondary to pulmonary edema/volume overload. I voiced my concerns that conservative therapy may not be enough to optimize his respiratory status and he may require renal replacement therapy/dialysis. The patient and I have discussed dialysis before in the past and he has told me that he would be willing to do it if he had no choice and based on my conversation with him today, he maintains this reasoning and is willing to pursue dialysis currently if all other therapies fail to improve his clinical status. We will see what his repeat labs show tomorrow morning as well as assess how he responds to diuretic therapy overnight before making a final decision about dialysis. I will continue follow patient with you while he remains hospitalized any further recommendations as needed. Thank you for allowing me to participate in the care of this patient. History of Present Illness Reason for Consult Consult date: 07/07/23 Reason for consult: acute renal failure (on chronic kidney disease) Chief Complaint
[2023-07-07 09:47] LABS: NT Pro B Type Natriuretic Pept > 30000 pg/mL (19.9-100)
[2023-07-07 12:06] LABS: Glucose Point of Care 149 mg/dl (65-105)
--- NOTE | 2023-07-07 12:09 | PM.PNCARD ---
Progress Note: A&P Assessment and Plan (1) Atrial fibrillation with RVR: Code(s): I48.91 - Unspecified atrial fibrillation Status: Acute Assessment and Plan: Underwent successful cardioversion on 07/06 with taoist of sinus rhythm. Will stop IV Amiodarone drip and start PO Amiodarone. Resume beta sofiya when blood pressures are better. Continue Warfarin for anticoagulation with a goal INR of 2-3. (2) Congestive heart failure: Code(s): I50.9 - Heart failure, unspecified Status: Acute Assessment and Plan: Acute on chronic heart failure secondary to AFib with RVR, underlying CAD in setting of NSTEMI. Echocardiogram this admission with LVEF 40-45%, moderate . Diuresis as tolerated. Given total of Lasix 120mg this morning along with Metolazone dose of 2.5mg. (3) Non-ST elevation myocardial infarction (NSTEMI): Code(s): I21.4 - Non-ST elevation (NSTEMI) myocardial infarction Status: Acute Assessment and Plan: He had some chest burning with RVR although denies chest pain at this time. His non ST-elevation myocardial infarction is likely secondary to his AFib with RVR and secondary demand ischemia. Troponin has increased to 15. Stabilize clinically with further ischemic workup as appropriate. (4) Diabetes mellitus with chronic kidney disease: Qualifiers: Diabetes mellitus type: type 2 Diabetes mellitus roasterman insulin use: with residential use Chronic kidney disease stage: stage 4 (severe) Qualified Code(s): E11.22 - Type 2 diabetes mellitus with diabetic chronic kidney disease; N18.4 - Chronic kidney disease, stage 4 (severe); Z79.4 - half-way (current) use of insulin Code(s): E11.22 - Type 2 diabetes mellitus with diabetic chronic kidney disease Status: Acute Assessment and Plan: Creatinine today above 4. He follows with Nephrology. Diuresis as tolerated. Nephrology has been consulted. (5) Aortic stenosis: Code(s): I35.0 - Nonrheumatic aortic (valve) stenosis Status: Acute Assessment and Plan: Moderate on echo. (6) Chronic anticoagulation: Code(s): Z79.01 - half-way (current) use of anticoagulants Status: Acute Assessment and Plan: Continue Warfarin with INR goal of 2-3. Check INR daily Plan Recommendations/plan discussed with Research & Analytics Manager. Subjective Date/time seen: 07/07/23 12:09 Interval history: Reason for visit: Atrial fibrillation with RVR. HPI: Patient is an 87-year-old male patient Dr. Sesay who has a history of paroxysmal atrial fibrillation, CHF, aortic stenosis, cardiomyopathy, CKD, ascending aortic aneurysm and hypertension.? He has been maintained on amiodarone but has had some breakthrough AFib and has been cardioverted at least twice in the past.? He had been riding a stationary bike up until .? He noticed his heart rate spiking up recently and he has been increasingly more short of breath.? Over the past couple days he has been very short of breath with almost any activity and even with talking.? He also has notices heart rate at home would go up to 140 or even above and dropped back down and go back up rapidly.? He has been having some burning type of chest pain in his upper chest also.? He came to hospital for further evaluation.? He was found to be in atrial fibrillation with rapid ventricular response heart rate of nearly 160 beats per minute.? Troponins are also elevated.? He was started on amiodarone drip and heart rate is better albeit still fast.? He is on warfarin for anticoagulation.? He denies any syncope, presyncope, paroxysmal nocturnal dyspnea orthopnea. Date of service 07/06: Patient remains intermittent new relatively hypotensive on high-flow nasal cannula FiO2 80%. He remains refractory in AFib with RVR heart rates in the 130 despite continuous amiodarone infusion and amiodarone bolus. He has received IV Lasix for heart failure as well. Decision has been mad
[2023-07-07] MEDS: AMIODARONE HCL 200 MG TABLET 400 MG PO (13:15)
[2023-07-07] MEDS: WARFARIN (*PBKC) 5 MG TABLET PO (16:46)
[2023-07-07 16:48] LABS: Glucose Point of Care 140 mg/dl (65-105)
[2023-07-07] MEDS: MELATONIN 5 MG TABLET PO (21:13)
[2023-07-08] VITALS (39 sets, daily range): BP systolic 92–136; BP diastolic 62–95; PULSE 69–94; RESP 16–29; TEMP 36–38.6; O2SAT 95–100
[2023-07-08 00:37] LABS: Glucose Point of Care 155 mg/dl (65-105)
[2023-07-08 04:44] LABS: Hematocrit 28.1 % (42.0-52.0); Hemoglobin 9.2 g/dL (14.0-18.0); Mean Corpuscular HGB Conc 32.7 g/dl (32-36); Mean Corpuscular Hemoglobin 30.7 pg (26-34); Mean Corpuscular Volume 93.7 fl (80-100); Mean Platelet Volume 11.5 fl (7.4-10.4); Platelet Count Result 169 k/mm3 (150-375); White Blood Count 7.7 K/mm3 (4.5-10.0)
[2023-07-08 04:57] LABS: Alanine Aminotransferase 15 U/L (6-50); Albumin Level 3.8 g/dL (3.5-5.1); Alkaline Phosphatase 55 U/L (38-126); Anion Gap 14 mmol/L (8-16); Aspartate Amino Transferase 22 U/L (17-59); Bilirubin,Total 0.5 mg/dL (0.2-1.3); Blood Urea Nitrogen 87 mg/dL (9-20); Calcium 7.9 mg/dL (8.4-10.2); Carbon Dioxide 21 mmol/L (22-30); Chloride 94 mmol/L (98-107); Estimated CRCL calculation 11 ml/min; Estimated Glomerular Filt Rate 10; Glucose 138 mg/dL (65-110); INR 2.2; Magnesium 1.9 mg/dL (1.6-2.3); Potassium 4.1 mmol/L (3.4-5.0); Prothrombin Time 25.9 Seconds (11.1-14.7); Sodium 129 mmol/L (137-145)
[2023-07-08 04:58] LABS: Partial Thromboplastin Time 54.4 SECONDS (22.3-36.8)
[2023-07-08] MEDS: LEVOTHYROXINE SODIUM 112 MCG TABLET PO (05:31)
[2023-07-08 05:50] LABS: Hepatitis B Surface Antigen Negative (Negative)
[2023-07-08 05:56] LABS: HAV RESULT Negative (Negative); Hepatitis B Core IgM Result Negative (Negative)
[2023-07-08 06:08] LABS: Hepatitis B Surface Anti Res Negative; Hepatitis C Virus Antibody Negative (Negative)
--- NOTE | 2023-07-08 08:43 | WPDINTPN ---
Progress Note: A&P Assessment and Plan (1) Atrial fibrillation with RVR: Code(s): I48.91 - Unspecified atrial fibrillation Status: Acute Assessment and Plan: 07/05: Patient presented with shortness of breath and palpitations 2-3 days prior to admission -patient was found to be in atrial fibrillation with rapid ventricular response with heart rates in the 150s to 160s in the ER -patient was initially started on Cardizem bolus and infusion after which she dropped his blood pressures. Cardizem infusion was discontinued and patient was started on amiodarone bolus and amiodarone infusion. - cardiology was consulted -07/06: Successfully cardioverted this morning with voodoo of sinus rhythm using 200 joules synchronous biphasic energy. He converted back to sinus rhythm with type 1 av block. -patient now in sinus rhythm with heart rate close to 800. Resume metoprolol -2D echo as below -continue warfarin (2) Acute respiratory failure: Code(s): J96.00 - Acute respiratory failure, unspecified whether with hypoxia or hypercapnia Status: Acute Assessment and Plan: Acute respiratory failure secondary to pulmonary edema which is multifactorial secondary to congestive heart failure, aortic stenosis, acute on chronic kidney disease and AFib with RVR Chest x-ray reviewed and shows pulmonary edema small effusions and cardiomegaly Patient has been on lasix but urine output has been poor Patient refuses to wear BiPAP Continue BiPAP p.r.n. and at night and continue Vapotherm for now. wean FiO2 as tolerated which is currently 50% We have discussed possibility of him needing intubation mechanical ventilation and patient clearly stated that he does not wish to go on a ventilator and any cause and wants to be DNI. (3) Acute on chronic renal failure: Code(s): N17.9 - Acute kidney failure, unspecified; N18.9 - Chronic kidney disease, unspecified Status: Acute Assessment and Plan: Patient has significant chronic kidney disease at baseline and now the renal function has worsened leading to acute on chronic renal failure. This is related to a combination of diabetes, diuretics, AFib RVR with CHF exacerbation, moderate aortic stenosis -patient initially received 1 L of IV fluid bolus in the ER and some albumin for volume expansion -his creatinine continues to worsen and is at 5.6 this morning. He continues to have poor urine output despite diuretics. He has pulmonary edema. Spoke to Dr. Kanungo go with nephrology who is also patient's outpatient percussion tuner was in agreement to initiate with dialysis the patient agrees. I spoke to patient regarding pros and cons of initiating hemodialysis. Patient wants to proceed with dialysis as he feels that that may give him a chance to get better and go home. I spoke to patient regarding risks and benefits of temporary dialysis catheter placement. Patient and his daughter verbalized understanding and agreed to proceed and consented for the procedure. I also explained to him that due to his elevated INR he will be transfused plasma to minimize the risk of bleeding. Patient also agreed to that. Plasma has been ordered. Was transfused I will attempt to place a temporary dialysis catheter with goal to get him dialyzed today. at higher dose -continue to monitor urine output , renal function electrolytes (4) Diabetes mellitus with chronic kidney disease: Qualifiers: Diabetes mellitus type: type 2 Diabetes mellitus extermination supervisor insulin use: with care home use Chronic kidney disease stage: stage 4 (severe) Qualified Code(s): E11.22 - Type 2 diabetes mellitus with diabetic chronic kidney disease; N18.4 - Chronic kidney disease, stage 4 (severe); Z79.4 - ocean transportation intermediary (current) use of insulin Code(s): E11.22 - Type 2 diabetes mellitus with diabetic chronic kidney disease Status: Acute Assessment and Plan: Continue Accu-Cheks and sliding scale insulin (5) Non-
[2023-07-08] MEDS: AMIODARONE HCL 200 MG TABLET 400 MG PO (08:52)
[2023-07-08] MEDS: LORazepam INJ (*CRX) 2 MG/ML VIAL 0.5 MG IV PUSH ×2 (08:56→21:21)
[2023-07-08] MEDS: FUROSEMIDE INJ 100 MG/10 ML VIAL 80 MG IV PUSH ×2 (09:29→17:57)
--- NOTE | 2023-07-08 10:06 | PM.IMPN ---
Progress Note: A&P Assessment and Plan (1) Atrial fibrillation with RVR: Code(s): I48.91 - Unspecified atrial fibrillation Status: Acute Assessment and Plan: 07/05: Patient presented with shortness of breath and palpitations and found to be in AFib/RVR (150s to 160s in the ER) -patient was initially started on Cardizem bolus and infusion but caused HoTN; Cardizem stopped and changed to amiodarone bolus and amiodarone infusion. - cardiology was consulted - Echo 07/06: EF 40-45%, septal WM abnormality, TAWNY, moderate and moderate pulmonary HTN. - 07/06: Successfully cardioverted with yazidi of sinus rhythm using 200 joules synchronous biphasic energy. He converted back to sinus rhythm with type 1 av block. -patient maintaining normal sinus rhythm -INR therapeutic Metoprolol dose decreased and now on hold. Warfarin to be held for reversal and HD catheter placement (2) Acute respiratory failure: Code(s): J96.00 - Acute respiratory failure, unspecified whether with hypoxia or hypercapnia Status: Acute Assessment and Plan: CXR on admission showing mild pulmonary edema. Acute respiratory failure secondary to pulmonary edema which is multifactorial secondary to congestive heart failure, aortic stenosis, acute on chronic kidney disease and AFib with RVR. Patient has been on lasix but urine output has been poor (about 400mL per day) Patient refuses to wear BiPAP Continue BiPAP p.r.n. and at night and continue Vapotherm for now. Wean FiO2 as tolerated which is currently 50% Discussed the possibility of intubation and mechanical ventilation but patient clearly stated his wishes and is now DNR Wean o2 as toelrated. (3) Acute on chronic renal failure: Code(s): N17.9 - Acute kidney failure, unspecified; N18.9 - Chronic kidney disease, unspecified Status: Acute Assessment and Plan: Patient has significant chronic kidney disease at baseline and now the renal function has worsened leading to acute on chronic renal failure related to a combination of diabetes, diuretics, AFib/RVR with CHF exacerbation, and moderate aortic stenosis. -patient initially received 1 L of IV fluid bolus in the ER and some albumin for volume expansion -his creatinine continues to worsen and is at 5.6 this morning. He continues to have poor urine output despite diuretics. -He has pulmonary edema. Nephrology was in agreement to initiate with dialysis if the patient agrees. The farm machinery erector did speak with the patient regarding pros and cons of initiating hemodialysis. Patient wants to proceed with dialysis as he feels that that may give him a chance to get better and go home. Plan to reverse INR with plasma and place HD catheter. (4) Non-ST elevation myocardial infarction (NSTEMI): Code(s): I21.4 - Non-ST elevation (NSTEMI) myocardial infarction Status: Acute Assessment and Plan: NSTEMI present on admission with elevated troponins to 15. EKG showing AFib/RVR with (old) Left BBB. Cardiology consulted. Plan for medical management with statin. Not on ASA but on Warfarin. lopressor held (5) Diabetes mellitus with chronic kidney disease: Qualifiers: Diabetes mellitus type: type 2 Diabetes mellitus care home insulin use: with terminal computer operator use Chronic kidney disease stage: stage 4 (severe) Qualified Code(s): E11.22 - Type 2 diabetes mellitus with diabetic chronic kidney disease; N18.4 - Chronic kidney disease, stage 4 (severe); Z79.4 - retirement (current) use of insulin Code(s): E11.22 - Type 2 diabetes mellitus with diabetic chronic kidney disease Status: Acute Assessment and Plan: A1c 6.8. The patient's blood glucose was reviewed on 07/08 Glucose remains well controlled. Continue AccuCheks covering with sliding scale. Hypoglycemia protocol available as needed. Continue to monitor (6) Aortic stenosis: Code(s): I35.0 - Nonrheumatic aortic (valve) naeem
--- NOTE | 2023-07-08 10:24 | ECG_ITS ---
Measurements Intervals [place] Rate: 87 P: 57 [place]: 237 QRS: 13 QRSD: 162 T: -46 QT: 394 QTc: 477 Interpretive Statements SINUS RHYTHM WITH FIRST DEGREE AV BLOCK WITH OCCASIONAL SUPRAVENTRICULAR PREMATURE COMPLEXES LEFT BUNDLE BRANCH BLOCK [120+ ms QRS DURATION, 80+ ms Q/S IN V1/V2, 85+ ms R IN I/aVL/V5/V6] COMPARED TO ECG 07/06/2023 11:29:06 NO SIGNIFICANT CHANGES Electronically Signed On 07-08-2023 15:22:44 CDT by Kaylie Bryant M.D.
[2023-07-08] MEDS: NITROGLYCERIN SL 0.4 MG TABLET SUBLINGUAL ×2 (10:25→10:35)
--- NOTE | 2023-07-08 10:25 | PC.NURSE ---
Family called RN to room. Pt c/o of chest pain. RN notified Dr. Moyer. Dr. Moyer at bedside to assess pt. Pt c/o chest pain tightness in the center of my chest. 07/02 pain. New orders received.
[2023-07-08] MEDS: SODIUM CHLORIDE 0.9% IV 250 ML 30 ML IV CONT (10:54)
[2023-07-08 11:29] LABS: Glucose Point of Care 147 mg/dl (65-105)
--- NOTE | 2023-07-08 11:49 | PC.NURSE ---
Hooker was flushed with 30ml NS. Temp charted incorrectly on blood vitals at 1148. Correct temp is 100.4
[2023-07-08] MEDS: LORazepam INJ (*CRX) 2 MG/ML VIAL 1 MG IV PUSH (12:44)
--- NOTE | 2023-07-08 13:25 | WPDPROCEDUR ---
Procedures Central Line Placement Right IJ: Central Line Date: 07/08/23 Central Line Time: 12:45 Discussed w/ the patient/family/POA,the placement of a central venous catheter, including its clinical necessity/indication & associated potential risks, benifits and alternatives.: Yes The patient/family/POA understand(s) and acknowledge(s) the need to proceed with central venous catheter insertion as an important element of the patient's clinical management.: Yes Consent: I have discussed with the patient and her daughter, the non-emergent placement of a temporary hemodialysis catheter, including its clinical necessity/indication and associated potential risks and complications. The patient and/or surrogate understand(s) and acknowledge(s) the need to proceed with central venous catheter insertion as an important element of the patient's clinical management. Time Out Performed: Yes Patient Position: supine Patient placed on monitor/pulse ox: Yes Provider Prep: mask, sterile gown, sterile gloves, Max. sterile barrier precautions, cap and hand hygiene with conventional soap/water or alcohol based hand rub Central line prep: Povidone-Iodine 1% Local anesthesia used: lidocaine 1% Amount of anesthesia used (ml): 5 Sterile US Technique with sterile gel/sterile probe covers: Yes Central line lumen inserted: triple Length (cm): 16 Depth of Insertion (cm): 16 Post Procedure: sutured in place, good blood return, all ports aspirated, flushed, capped, transparent dressing and aseptic technique maintained throughout procedure Post procedure x-ray: tip of catheter in good position and no pneumothorax seen Patient tolerated procedure: well Complications: none
[2023-07-08] MEDS: ACETAMINOPHEN 650 MG SUPPOSITORY RECTAL (13:31)
--- NOTE | 2023-07-08 14:08 | P.PNCROSS_ITS ---
Event Note Event Note Event Note: Patient earlier with complaint of chest tightness which he rated at 8/10. He w as also little bit tachypneic with increased work of breathing. EKG was done which was unchanged from past EKGs and showed no ST elevation. Patient was given nitroglycerin x2 which led to improvement in his chest pain. Patient was placed on BiPAP for respiratory distress. Discussed with Cardiology no further intervention or recommendations at this time. Troponin was checked and was 4 which was lower than his past troponin. Patient also has elevated creatinine. Temporary dialysis catheter placed in right IJ after infusion of 2 units of FFP. Will check INR and if low will start heparin infusion until INR is therapeutic. Nephrology informed of dialysis catheter placement and patient will be dialyzed today.
--- NOTE | 2023-07-08 14:13 | PM.PNCARD ---
Progress Note: A&P Assessment and Plan (1) Atrial fibrillation with RVR: Code(s): I48.91 - Unspecified atrial fibrillation Status: Acute Assessment and Plan: Underwent successful cardioversion on 07/06 with christianity of sinus rhythm. Continue PO Amiodarone. Resume beta sofiya when blood pressures are better. Continue Warfarin for anticoagulation with a goal INR of 2-3. (2) Congestive heart failure: Code(s): I50.9 - Heart failure, unspecified Status: Acute Assessment and Plan: Acute on chronic heart failure secondary to AFib with RVR, underlying CAD in setting of NSTEMI. Echocardiogram this admission with LVEF 40-45%, moderate . Will now be starting dialysis, therefore, volume control through dialysis. (3) Non-ST elevation myocardial infarction (NSTEMI): Code(s): I21.4 - Non-ST elevation (NSTEMI) myocardial infarction Status: Acute Assessment and Plan: He had some chest burning with RVR. His non ST-elevation myocardial infarction is likely secondary to his AFib with RVR and secondary demand ischemia. Troponin increased to 15. Stabilize clinically with further ischemic workup as appropriate. (4) Diabetes mellitus with chronic kidney disease: Qualifiers: Diabetes mellitus type: type 2 Diabetes mellitus intermediate insulin use: with intermediate use Chronic kidney disease stage: stage 4 (severe) Qualified Code(s): E11.22 - Type 2 diabetes mellitus with diabetic chronic kidney disease; N18.4 - Chronic kidney disease, stage 4 (severe); Z79.4 - watermelon harvesting supervisor (current) use of insulin Code(s): E11.22 - Type 2 diabetes mellitus with diabetic chronic kidney disease Status: Acute Assessment and Plan: Plans to start dialysis today. (5) Aortic stenosis: Code(s): I35.0 - Nonrheumatic aortic (valve) stenosis Status: Acute Assessment and Plan: Moderate on echo. (6) Chronic anticoagulation: Code(s): Z79.01 - watermelon harvesting supervisor (current) use of anticoagulants Status: Acute Assessment and Plan: Continue Warfarin with INR goal of 2-3. Check INR daily Plan Recommendations/plan discussed with Pigment Making Supervisor. Subjective Date/time seen: 07/08/23 14:13 Interval history: Reason for visit: Atrial fibrillation with RVR. HPI: Patient is an 87-year-old male patient Dr. Uppstrom who has a history of paroxysmal atrial fibrillation, CHF, aortic stenosis, cardiomyopathy, CKD, ascending aortic aneurysm and hypertension.? He has been maintained on amiodarone but has had some breakthrough AFib and has been cardioverted at least twice in the past.? He had been riding a stationary bike up until .? He noticed his heart rate spiking up recently and he has been increasingly more short of breath.? Over the past couple days he has been very short of breath with almost any activity and even with talking.? He also has notices heart rate at home would go up to 140 or even above and dropped back down and go back up rapidly.? He has been having some burning type of chest pain in his upper chest also.? He came to hospital for further evaluation.? He was found to be in atrial fibrillation with rapid ventricular response heart rate of nearly 160 beats per minute.? Troponins are also elevated.? He was started on amiodarone drip and heart rate is better albeit still fast.? He is on warfarin for anticoagulation.? He denies any syncope, presyncope, paroxysmal nocturnal dyspnea orthopnea. Date of service 07/06: Patient remains intermittent new relatively hypotensive on high-flow nasal cannula FiO2 80%. He remains refractory in AFib with RVR heart rates in the 130 despite continuous amiodarone infusion and amiodarone bolus. He has received IV Lasix for heart failure as well. Decision has been made to proceed with cardioversion today due to concern for heart failure status and relative hypotension related to AFib with RVR. Patient's daughter and granddaughter at bedside.
--- NOTE | 2023-07-08 15:08 | P.PNNP_ITS ---
Progress Note: A&P Assessment and Plan (1) JOHNATHAN (acute kidney injury): Code(s): N17.9 - Acute kidney failure, unspecified Status: Acute Assessment and Plan: * multifactorial etiology: * Afib with RVR * NSTEMI * CHF * aortic stenosis * hemodynamic instability * element of disease progresion * concerning that renal function/continues to deteriorate with worsening UOP * follow trend of repeat labs and UOP * will proceed with PROCESSING TECH/dialysis today (2) Chronic kidney disease, stage IV (severe): Code(s): N18.4 - Chronic kidney disease, stage 4 (severe) Status: Chronic Assessment and Plan: * baseline creatinine runs ~ 2.8 - 3.5mg/dl but has fluctuated to extremes in the past (usually due to adjustent in diuretic therapy) * due to CHF (and associated need for diuretics), hypertension, hypetension, diabetes and age-related change based on outpatient evaluation * he does have known renal cell carcinoma as well which did not really seem to play much role with his overall kidney function for the last few years (3) Acute respiratory failure: Code(s): J96.00 - Acute respiratory failure, unspecified whether with hypoxia or hypercapnia Status: Acute Assessment and Plan: * secondary to pulmonary edema likely precipitated by afib with RVR, CHF, NSTEMI, aortic stenosis, and worsening renal dysfunction * higher dose diuretics being initiated * BiPAP support PRN * since volume status fails has failed to improve with conservative therapy, proceed with PROCESSING TECH/dialysis support * follow I/Os, daily weights, and respiratory status (4) Non-ST elevation myocardial infarction (NSTEMI): Code(s): I21.4 - Non-ST elevation (NSTEMI) myocardial infarction Status: Acute Assessment and Plan: * as noted by trend of troponins * likely triggered by afib with RVR and associated demand ischemia * on anticoagulation already * Cardiology following (5) Atrial fibrillation with RVR: Code(s): I48.91 - Unspecified atrial fibrillation Status: Acute Assessment and Plan: * as noted on presentation * s/p cardioversion (on 07/07/23) * rate control strategy * on coumadin (6) Diabetes mellitus with chronic kidney disease: Qualifiers: Diabetes mellitus type: type 2 Diabetes mellitus halfway insulin use: with termite exterminator helper use Chronic kidney disease stage: stage 4 (severe) Qualified Code(s): E11.22 - Type 2 diabetes mellitus with diabetic chronic kidney disease; N18.4 - Chronic kidney disease, stage 4 (severe); Z79.4 - adjunct faculty for medical terminology (current) use of insulin Code(s): E11.22 - Type 2 diabetes mellitus with diabetic chronic kidney disease Status: Acute Assessment and Plan: * follow accu-cheks * glycemic control per hospitalists/financial sales professional Discussed case with Dr. Moyer earlier today and with family at bedside. Will continue to follow Subjective Date/time seen: 07/08/23 15:08 Interval history: Follow-up for acute kidney injury/acute renal failure on chronic kidney disease. Renal function worse in the last 24 hours and still not making much urine despite high dose diuretic therapy; temporary HD catheter placed earlier today and currently tolerating dialysis at the time of my visit (seen on HD at 3:00pm); currently on BiPAP for respiratory support; did have some chest discomfort earlier as well but was relieved with SL nitroglycerin with no new EKG changes noted; febrile currently. Exam Narrative: General: elderly but WD/WN m
--- NOTE | 2023-07-08 15:08 | PM.PNNEP ---
Progress Note: A&P Assessment and Plan (1) JOHNATHAN (acute kidney injury): Code(s): N17.9 - Acute kidney failure, unspecified Status: Acute Assessment and Plan: multifactorial etiology: Afib with RVR NSTEMI CHF aortic stenosis hemodynamic instability element of disease progresion concerning that renal function/continues to deteriorate with worsening UOP follow trend of repeat labs and UOP will proceed with BUTTON PUSHER/dialysis today (2) Chronic kidney disease, stage IV (severe): Code(s): N18.4 - Chronic kidney disease, stage 4 (severe) Status: Chronic Assessment and Plan: baseline creatinine runs ~ 2.8 - 3.5mg/dl but has fluctuated to extremes in the past (usually due to adjustent in diuretic therapy) due to CHF (and associated need for diuretics), hypertension, hypetension, diabetes and age-related change based on outpatient evaluation he does have known renal cell carcinoma as well which did not really seem to play much role with his overall kidney function for the last few years (3) Acute respiratory failure: Code(s): J96.00 - Acute respiratory failure, unspecified whether with hypoxia or hypercapnia Status: Acute Assessment and Plan: secondary to pulmonary edema likely precipitated by afib with RVR, CHF, NSTEMI, aortic stenosis, and worsening renal dysfunction higher dose diuretics being initiated BiPAP support PRN since volume status fails has failed to improve with conservative therapy, proceed with BUTTON PUSHER/dialysis support follow I/Os, daily weights, and respiratory status (4) Non-ST elevation myocardial infarction (NSTEMI): Code(s): I21.4 - Non-ST elevation (NSTEMI) myocardial infarction Status: Acute Assessment and Plan: as noted by trend of troponins likely triggered by afib with RVR and associated demand ischemia on anticoagulation already Cardiology following (5) Atrial fibrillation with RVR: Code(s): I48.91 - Unspecified atrial fibrillation Status: Acute Assessment and Plan: as noted on presentation s/p cardioversion (on 07/07/23) rate control strategy on coumadin (6) Diabetes mellitus with chronic kidney disease: Qualifiers: Diabetes mellitus type: type 2 Diabetes mellitus alf insulin use: with alf use Chronic kidney disease stage: stage 4 (severe) Qualified Code(s): E11.22 - Type 2 diabetes mellitus with diabetic chronic kidney disease; N18.4 - Chronic kidney disease, stage 4 (severe); Z79.4 - terminal operator (current) use of insulin Code(s): E11.22 - Type 2 diabetes mellitus with diabetic chronic kidney disease Status: Acute Assessment and Plan: follow accu-cheks glycemic control per hospitalists/underwriting analyst Discussed case with Dr. Moyer earlier today and with family at bedside. Will continue to follow Subjective Date/time seen: 07/08/23 15:08 Interval history: Follow-up for acute kidney injury/acute renal failure on chronic kidney disease. Renal function worse in the last 24 hours and still not making much urine despite high dose diuretic therapy; temporary HD catheter placed earlier today and currently tolerating dialysis at the time of my visit (seen on HD at 3:00pm); currently on BiPAP for respiratory support; did have some chest discomfort earlier as well but was relieved with SL nitroglycerin with no new EKG changes noted; febrile currently. Exam Narrative: General: elderly but WD/WN male on BiPAP Heart: normal S1 and S2; no rub Lungs: coarse anteriorly but decreased at bases Abdomen: soft, nontender, nondistended, positive bowel sounds Extremities: no cyanosis or clubbing; no edema Skin: warm and dry Objective Data Vital Signs Vital Signs: Vital Signs Temp Pulse Resp BP Pulse Ox O2 Del Method O2 Flow Rate 07/08/23 15:00 76 102/66 07/08/23 14:20 101.4 F H 82 21 H 101/72 98 07/08/23 14:55
[2023-07-08 15:15] LABS: Appearance Urine Turbid (Clear); Bacteria Urine None Seen /hpf; Bilirubin Urine Negative (Negative); Blood Urine 3+ (Negative); Color Urine Dark Yellow (Yellow); Glucose Urine UA Negative (Negative); Hyaline Casts Urine Present /lpf; Ketones Urine Negative (Negative); Leukocyte Esterase Ur 2+ LEU/UL (Negative); Nitrate Urine Negative (Negative); Protein Urine 1+ mg/dL (Negative); RBC Urine >100 /hpf (0-2); Specific Grav Ur 1.014 (1.001-1.035); Squamous Epithelial Cell Urine Few /hpf (Few); Urobilinogen Urine 0.2 mg/dL (<2.0)
[2023-07-08 15:16] LABS: Add Urine Microscopic? YES
[2023-07-08 17:00] LABS: INR 1.6; Prothrombin Time 19.8 Seconds (11.1-14.7)
--- NOTE | 2023-07-08 17:45 | PC.NURSE ---
Notified Dr. Moyer of critical troponin of 4.500. INR level of 1.6. New order to cancel remaining troponins, and start pt on a heparin drip per protocol w/ no bolus. Pt is now afebrile, but if pt becomes febrile again call
[2023-07-08] MEDS: WARFARIN (*PBKC) 5 MG TABLET PO (17:51)
[2023-07-08 17:56] LABS: Glucose Point of Care 159 mg/dl (65-105)
[2023-07-08] MEDS: HEPARIN SOD/D5W 100 UNITS/ML 25,000 UNITS/250 ML BAG 15 UNITS IV CONT (17:57)
[2023-07-08] MEDS: MELATONIN 5 MG TABLET PO (21:21)
[2023-07-09] VITALS (47 sets, daily range): BP systolic 83–155; BP diastolic 56–125; PULSE 79–156; RESP 21–27; TEMP 36–38.3; O2SAT 95–100
[2023-07-09 00:16] LABS: Glucose Point of Care 145 mg/dl (65-105)
[2023-07-09 00:29] LABS: Partial Thromboplastin Time 53.4 SECONDS (22.3-36.8)
[2023-07-09] MEDS: HEPARIN SODIUM 5,000 UNITS/ML VIAL 7000 UNITS IV PUSH ×2 (00:34→08:19)
[2023-07-09] MEDS: LEVOTHYROXINE SODIUM 112 MCG TABLET PO (06:27)
[2023-07-09 06:41] LABS: Glucose Point of Care 154 mg/dl (65-105)
[2023-07-09 06:47] LABS: Hematocrit 26.9 % (42.0-52.0); Hemoglobin 8.8 g/dL (14.0-18.0); Mean Corpuscular HGB Conc 32.7 g/dl (32-36); Mean Corpuscular Hemoglobin 30.4 pg (26-34); Mean Corpuscular Volume 93.1 fl (80-100); Mean Platelet Volume 11.4 fl (7.4-10.4); Platelet Count Result 196 k/mm3 (150-375); Red Blood Count 2.89 M/mm3 (4.6-6.20); Red Cell Distribution Width 14.2 % (11.5-14.5); White Blood Count 8.3 K/mm3 (4.5-10.0)
[2023-07-09 07:07] LABS: Alanine Aminotransferase 16 U/L (6-50); Albumin Level 3.8 g/dL (3.5-5.1); Alkaline Phosphatase 71 U/L (38-126); Anion Gap 11 mmol/L (8-16); Aspartate Amino Transferase 16 U/L (17-59); Bilirubin,Total 0.7 mg/dL (0.2-1.3); Blood Urea Nitrogen 72 mg/dL (9-20); Calcium 8.2 mg/dL (8.4-10.2); Carbon Dioxide 22 mmol/L (22-30); Chloride 98 mmol/L (98-107); Estimated CRCL calculation 12 ml/min; Estimated Glomerular Filt Rate 12; Glucose 144 mg/dL (65-110); Magnesium 2.1 mg/dL (1.6-2.3); Potassium 3.5 mmol/L (3.4-5.0); Sodium 131 mmol/L (137-145)
[2023-07-09 07:26] LABS: INR 2.1; Prothrombin Time 24.9 Seconds (11.1-14.7)
[2023-07-09] MEDS: AMIODARONE HCL 200 MG TABLET 400 MG PO (08:20)
[2023-07-09] MEDS: HEPARIN SOD/D5W 100 UNITS/ML 25,000 UNITS/250 ML BAG 23 UNITS IV CONT (08:25)
[2023-07-09] MEDS: AMIODARONE 150 MG/D5W 100 ML 150 MG/100 ML BAG 600 MG IV CONT ×2 (08:37→10:00)
--- NOTE | 2023-07-09 08:41 | ECG_ITS ---
Measurements Intervals [place] Rate: 141 P: NM: 0 QRS: -30 QRSD: 181 T: 108 QT: 357 QTc: 548 Interpretive Statements ATRIAL FIBRILLATION WITH RAPID VENTRICULAR RESPONSE LEFT BUNDLE BRANCH BLOCK [120+ ms QRS DURATION, 80+ ms Q/S IN V1/V2, 85+ ms R IN I/aVL/V5/V6] ABNORMAL ECG COMPARED TO ECG 07/08/2023 10:30:26 ATRIAL FIBRILLATION REPLACES SINUS RHYTHM Electronically Signed On 07-10-2023 7:34:29 CDT by Srinivas Her M.D.
[2023-07-09] MEDS: AMIODARONE 360 MG/D5W 200 ML 360 MG/200 ML BAG 33.33 MG IV CONT (08:46)
[2023-07-09] MEDS: POTASSIUM CHLORIDE 20 MEQ ER TABLET 40 MEQ PO (08:49)
--- NOTE | 2023-07-09 09:17 | WPDINTPN ---
Progress Note: A&P Assessment and Plan (1) Atrial fibrillation with RVR: Code(s): I48.91 - Unspecified atrial fibrillation Status: Acute Assessment and Plan: 07/05: Patient presented with shortness of breath and palpitations 2-3 days prior to admission -patient was found to be in atrial fibrillation with rapid ventricular response with heart rates in the 150s to 160s in the ER -patient was initially started on Cardizem bolus and infusion after which she dropped his blood pressures. Cardizem infusion was discontinued and patient was started on amiodarone bolus and amiodarone infusion. - cardiology was consulted -07/06: Successfully cardioverted this morning with uatsdin of sinus rhythm using 200 joules synchronous biphasic energy. He converted back to sinus rhythm with type 1 av block. Patient continued on p.o. amiodarone and metoprolol was resumed -2D echo as below 07/08 patient was on warfarin but patient was given FFP for dialysis catheter placement. Post procedure patient's INR was below 2 and was was started on heparin infusion. -INR this morning is in therapeutic range at 2.1. I will Will recheck INR in 12 hours and if it is adequate Will discontinue heparin infusion 07/09 patient went back into AFib with RVR this morning.. Potassium replacement ordered. Will resume amiodarone IV infusion. Bolus followed by infusion is ordered (2) Acute respiratory failure: Code(s): J96.00 - Acute respiratory failure, unspecified whether with hypoxia or hypercapnia Status: Acute Assessment and Plan: Acute respiratory failure secondary to pulmonary edema which is multifactorial secondary to congestive heart failure, aortic stenosis, acute on chronic kidney disease and AFib with RVR Most recent chest x-ray reviewed and shows pulmonary edema small effusions and cardiomegaly Patient has been on lasix but urine output has been poor hence he was started on hemodialysis Patient refuses to wear BiPAP. Continue BiPAP p.r.n. and at night as on his patient is willing to wear it Continue Vapotherm for now. wean FiO2 as tolerated which is currently 40% We have discussed possibility of him needing intubation mechanical ventilation and patient clearly stated that he does not wish to go on a ventilator and any cause and wants to be DNI. (3) Acute on chronic renal failure: Code(s): N17.9 - Acute kidney failure, unspecified; N18.9 - Chronic kidney disease, unspecified Status: Acute Assessment and Plan: Patient has significant chronic kidney disease at baseline and now the renal function has worsened leading to acute on chronic renal failure. This is related to a combination of diabetes, diuretics, AFib RVR with CHF exacerbation, moderate aortic stenosis -patient initially received 1 L of IV fluid bolus in the ER and some albumin for volume expansion -07/08 his creatinine continues to worsen and is at 5.6 this morning. He continues to have poor urine output despite diuretics. He has pulmonary edema. Spoke to Dr. Afia lentz with nephrology who is also patient's outpatient air lift operator was in agreement to initiate with dialysis the patient agrees. I spoke to patient regarding pros and cons of initiating hemodialysis. Patient wants to proceed with dialysis as he feels that that may give him a chance to get better and go home. I spoke to patient regarding risks and benefits of temporary dialysis catheter placement. Patient and his daughter verbalized understanding and agreed to proceed and consented for the procedure. Patient was transfused with 2 units of FFP and a temporary dialysis catheter was placed. Patient underwent hemodialysis and 2 L fluid was removed without any complication. -continue hemodialysis as per Nephrology. Potassium replacement ordered -continue to monitor urine output , renal function electrolytes (4) Diabetes mellitus with chronic kidney disease: Qualifiers: Diabetes mellitus type: type 2
[2023-07-09] MEDS: EPOETIN ALFA 10,000 UNITS/ML VIAL 10000 UNITS IV PUSH (09:28)
[2023-07-09] MEDS: SODIUM CHLORIDE 0.9% IV 1,000 ML 999 ML IV CONT (09:29)
--- NOTE | 2023-07-09 09:52 | PM.PNCARD ---
Progress Note: A&P Assessment and Plan (1) Atrial fibrillation with RVR: Code(s): I48.91 - Unspecified atrial fibrillation Status: Acute Assessment and Plan: Underwent successful cardioversion on 07/06 with taoism of sinus rhythm. However, reverted to Afib with RVR this morning. Also having NSVT vs AF with aberrant conduction, rate in the 150's. He has been started on amiodarone which should be continued. Limited options for rate control as he is borderline hypotensive. Repeat DCCV not an appropriate option at this time as he has been made DNR. Continue Warfarin for anticoagulation with a goal INR of 2-3. (2) Congestive heart failure: Code(s): I50.9 - Heart failure, unspecified Status: Acute Assessment and Plan: Acute on chronic heart failure secondary to AFib with RVR, underlying CAD in setting of NSTEMI. Echocardiogram this admission with LVEF 40-45%, moderate . Volume management with dialysis. (3) Non-ST elevation myocardial infarction (NSTEMI): Code(s): I21.4 - Non-ST elevation (NSTEMI) myocardial infarction Status: Acute Assessment and Plan: He had some chest burning with RVR. His non ST-elevation myocardial infarction is likely secondary to his AFib with RVR and secondary demand ischemia. Troponin increased to 15. Stabilize clinically with further ischemic workup as appropriate. (4) Diabetes mellitus with chronic kidney disease: Qualifiers: Diabetes mellitus type: type 2 Diabetes mellitus chcf insulin use: with rat exterminator use Chronic kidney disease stage: stage 4 (severe) Qualified Code(s): E11.22 - Type 2 diabetes mellitus with diabetic chronic kidney disease; N18.4 - Chronic kidney disease, stage 4 (severe); Z79.4 - rat exterminator (current) use of insulin Code(s): E11.22 - Type 2 diabetes mellitus with diabetic chronic kidney disease Status: Acute Assessment and Plan: On HD (5) Aortic stenosis: Code(s): I35.0 - Nonrheumatic aortic (valve) stenosis Status: Acute Assessment and Plan: Moderate on echo. (6) Chronic anticoagulation: Code(s): Z79.01 - FPC (current) use of anticoagulants Status: Acute Assessment and Plan: Continue Warfarin with INR goal of 2-3. Check INR daily Plan Recommendations/plan discussed with Mine Inspector [employer]. Subjective Date/time seen: 07/09/23 09:52 Interval history: Reason for visit: Atrial fibrillation with RVR. HPI: Patient is an 87-year-old male patient Dr. Sesay who has a history of paroxysmal atrial fibrillation, CHF, aortic stenosis, cardiomyopathy, CKD, ascending aortic aneurysm and hypertension.? He has been maintained on amiodarone but has had some breakthrough AFib and has been cardioverted at least twice in the past.? He had been riding a stationary bike up until .? He noticed his heart rate spiking up recently and he has been increasingly more short of breath.? Over the past couple days he has been very short of breath with almost any activity and even with talking.? He also has notices heart rate at home would go up to 140 or even above and dropped back down and go back up rapidly.? He has been having some burning type of chest pain in his upper chest also.? He came to hospital for further evaluation.? He was found to be in atrial fibrillation with rapid ventricular response heart rate of nearly 160 beats per minute.? Troponins are also elevated.? He was started on amiodarone drip and heart rate is better albeit still fast.? He is on warfarin for anticoagulation.? He denies any syncope, presyncope, paroxysmal nocturnal dyspnea orthopnea. Date of service 07/06: Patient remains intermittent new relatively hypotensive on high-flow nasal cannula FiO2 80%. He remains refractory in AFib with RVR heart rates in the 130 despite continuous amiodarone infusion and amiodarone bolus. He has received IV Lasix for heart failure as well. Decision has bee
--- NOTE | 2023-07-09 11:17 | PC.NURSE ---
0835: Pt found to be in V-tach on grocery clerk selling. tow car driver notified MD as this RN checked on pt. Pt states not issues at this time. HR 150's. as bedside. New orders received for 12 lead EKG, and to start Amio bolus and gtt. Notify Cardiology of changes. Continue with dialysis this AM as planned. 1000: Pt receiving dialysis with no issues noted from pt. Pt's heart rate remains in the 130-150's. notified that modeling analyst has turned the machine down as low as it will go and pt's heart rate remains elevated. New order for another Amio bolus.
--- NOTE | 2023-07-09 12:10 | P.PNNP_ITS ---
Progress Note: A&P Assessment and Plan (1) JOHNATHAN (acute kidney injury): Code(s): N17.9 - Acute kidney failure, unspecified Status: Acute Assessment and Plan: * multifactorial etiology: * Afib with RVR * NSTEMI * CHF * aortic stenosis * hemodynamic instability/relative hypotension * element of disease progression * initiated on SALON MANAGER/dialysis * HD yesterday * HD today * likely HD tomorrow * follow electrolytes, volume status, and clearance (2) Chronic kidney disease, stage IV (severe): Code(s): N18.4 - Chronic kidney disease, stage 4 (severe) Status: Chronic Assessment and Plan: * baseline creatinine runs ~ 2.8 - 3.5mg/dl but has fluctuated to extremes in t he past (usually due to adjustent in diuretic therapy) * due to CHF (and associated need for diuretics), hypertension, hypetension, diabetes and age-related change based on outpatient evaluation * he does have known renal cell carcinoma as well which did not really seem to play much role with his overall kidney function for the last few years (3) Acute respiratory failure: Code(s): J96.00 - Acute respiratory failure, unspecified whether with hypoxia or hypercapnia Status: Acute Assessment and Plan: * secondary to pulmonary edema likely precipitated by afib with RVR, CHF, NSTEMI, aortic stenosis, and worsening renal dysfunction * higher dose diuretics started with limited response -- will discontinue. * BiPAP support PRN * fluid removal as tolerated with dialysis * follow I/Os, daily weights, and respiratory status (4) Non-ST elevation myocardial infarction (NSTEMI): Code(s): I21.4 - Non-ST elevation (NSTEMI) myocardial infarction Status: Acute Assessment and Plan: * as noted by trend of troponins * likely triggered by afib with RVR and associated demand ischemia * on anticoagulation already * Cardiology following (5) Atrial fibrillation with RVR: Code(s): I48.91 - Unspecified atrial fibrillation Status: Acute Assessment and Plan: * as noted on presentation * s/p cardioversion (on 07/07/23) * rate control strategy - back in Afib today * on coumadin (6) Urinary tract infection: Code(s): N39.0 - Urinary tract infection, site not specified Status: Acute Assessment and Plan: * presumed source of recurrent fevers * UA highly suggestive * follow-up on blood and urine cultures * on antibiotics (7) Diabetes mellitus with chronic kidney disease: Qualifiers: Diabetes mellitus type: type 2 Diabetes mellitus penitentiary insulin use: with intermediate school teacher use Chronic kidney disease stage: stage 4 (severe) Qualified Code(s): E11.22 - Type 2 diabetes mellitus with diabetic chronic kidney disease; N18.4 - Chronic kidney disease, stage 4 (severe); Z79.4 - MCFP (current) use of insulin Code(s): E11.22 - Type 2 diabetes mellitus with diabetic chronic kidney disease Status: Acute Assessment and Plan: * follow accu-cheks * glycemic control per hospitalists/application manager Will continue to follow. Subjective Date/time seen: 07/09/23 12:10 Interval history: Follow-up for acute kidney injury/acute renal failure on chronic kidney disease. Tolerated dialysis treatment yesterday afternoon and tolerating dialysis treatment at the time of my visit (seen on HD at 12:00PM); still with some on/off shortness of breath but does not appear in any distress; back in Afib earlier this morning with fluctuating hemodynamics noted during H
--- NOTE | 2023-07-09 12:10 | PM.PNNEP ---
Progress Note: A&P Assessment and Plan (1) JOHNATHAN (acute kidney injury): Code(s): N17.9 - Acute kidney failure, unspecified Status: Acute Assessment and Plan: multifactorial etiology: Afib with RVR NSTEMI CHF aortic stenosis hemodynamic instability/relative hypotension element of disease progression initiated on LIMOUSINE RENTAL CLERK/dialysis HD yesterday HD today likely HD tomorrow follow electrolytes, volume status, and clearance (2) Chronic kidney disease, stage IV (severe): Code(s): N18.4 - Chronic kidney disease, stage 4 (severe) Status: Chronic Assessment and Plan: baseline creatinine runs ~ 2.8 - 3.5mg/dl but has fluctuated to extremes in the past (usually due to adjustent in diuretic therapy) due to CHF (and associated need for diuretics), hypertension, hypetension, diabetes and age-related change based on outpatient evaluation he does have known renal cell carcinoma as well which did not really seem to play much role with his overall kidney function for the last few years (3) Acute respiratory failure: Code(s): J96.00 - Acute respiratory failure, unspecified whether with hypoxia or hypercapnia Status: Acute Assessment and Plan: secondary to pulmonary edema likely precipitated by afib with RVR, CHF, NSTEMI, aortic stenosis, and worsening renal dysfunction higher dose diuretics started with limited response -- will discontinue. BiPAP support PRN fluid removal as tolerated with dialysis follow I/Os, daily weights, and respiratory status (4) Non-ST elevation myocardial infarction (NSTEMI): Code(s): I21.4 - Non-ST elevation (NSTEMI) myocardial infarction Status: Acute Assessment and Plan: as noted by trend of troponins likely triggered by afib with RVR and associated demand ischemia on anticoagulation already Cardiology following (5) Atrial fibrillation with RVR: Code(s): I48.91 - Unspecified atrial fibrillation Status: Acute Assessment and Plan: as noted on presentation s/p cardioversion (on 07/07/23) rate control strategy - back in Afib today on coumadin (6) Urinary tract infection: Code(s): N39.0 - Urinary tract infection, site not specified Status: Acute Assessment and Plan: presumed source of recurrent fevers UA highly suggestive follow-up on blood and urine cultures on antibiotics (7) Diabetes mellitus with chronic kidney disease: Qualifiers: Diabetes mellitus type: type 2 Diabetes mellitus rat exterminator insulin use: with snf use Chronic kidney disease stage: stage 4 (severe) Qualified Code(s): E11.22 - Type 2 diabetes mellitus with diabetic chronic kidney disease; N18.4 - Chronic kidney disease, stage 4 (severe); Z79.4 - terminal make up operator (current) use of insulin Code(s): E11.22 - Type 2 diabetes mellitus with diabetic chronic kidney disease Status: Acute Assessment and Plan: follow accu-cheks glycemic control per hospitalists/laborer landscape Will continue to follow. Subjective Date/time seen: 07/09/23 12:10 Interval history: Follow-up for acute kidney injury/acute renal failure on chronic kidney disease. Tolerated dialysis treatment yesterday afternoon and tolerating dialysis treatment at the time of my visit (seen on HD at 12:00PM); still with some on/off shortness of breath but does not appear in any distress; back in Afib earlier this morning with fluctuating hemodynamics noted during HD treatment with attempts at decreasing blood flows with HD to see if helps with heart rate; febrile in the last 24 hours as well. Exam Narrative: General: elderly but WD/WN male on BiPAP Heart: IRRR and tachycardic; no rub Lungs: coarse anteriorly but decreased at bases Abdomen: soft, nontender, nondistended, positive bowel sounds Extremities: no cyanosis or clubbing; no edema Skin: warm and dry Objective Data Vital Signs
[2023-07-09] MEDS: cefTRIAXone 2 GM/NS 100 ML 2 GM/100 ML BAG IVPB (12:52)
[2023-07-09 12:58] LABS: Glucose Point of Care 160 mg/dl (65-105)
[2023-07-09] MEDS: AMIODARONE 360 MG/D5W 200 ML 360 MG/200 ML BAG 16.67 MG IV CONT (14:28)
[2023-07-09 15:53] LABS: Partial Thromboplastin Time > 200.0 SECONDS (22.3-36.8)
[2023-07-09] MEDS: ACETAMINOPHEN 325 MG TABLET 650 MG PO (16:55)
[2023-07-09] MEDS: WARFARIN (*PBKC) 5 MG TABLET PO (16:55)
--- NOTE | 2023-07-09 17:10 | PM.IMPN ---
Progress Note: A&P Assessment and Plan (1) Atrial fibrillation with RVR: Code(s): I48.91 - Unspecified atrial fibrillation Status: Acute Assessment and Plan: 07/05: Patient presented with shortness of breath and palpitations and found to be in AFib/RVR (150s to 160s in the ER) - patient was initially started on Cardizem bolus and infusion but caused HoTN; Cardizem stopped and changed to amiodarone bolus and amiodarone infusion. - cardiology was consulted - Echo 07/06: EF 40-45%, septal WM abnormality, TAWNY, moderate and moderate pulmonary HTN. - 07/06: Successfully cardioverted with episcopalian of sinus rhythm using 200 joules synchronous biphasic energy. He converted back to sinus rhythm with type 1 AV block. -patient went back into AFib this morning -INR therapeutic; Heparin drip started. Metoprolol remains on hold. Warfarin resumed Amiodarone drip started for recurrent AFib (2) Acute respiratory failure: Code(s): J96.00 - Acute respiratory failure, unspecified whether with hypoxia or hypercapnia Status: Acute Assessment and Plan: CXR on admission showing mild pulmonary edema. Acute respiratory failure secondary to pulmonary edema which is multifactorial secondary to CHF, aortic stenosis, acute on chronic kidney disease and AFib with RVR. Patient was on lasix but urine output has been poor Patient refuses to wear BiPAP Continue BiPAP p.r.n. and at night and continue Vapotherm for now. Discussed the possibility of intubation and mechanical ventilation but patient clearly stated his wishes and is now DNR Wean FiO2 as tolerated (3) Acute on chronic renal failure: Code(s): N17.9 - Acute kidney failure, unspecified; N18.9 - Chronic kidney disease, unspecified Status: Acute Assessment and Plan: Patient has significant chronic kidney disease at baseline and now the renal function has worsened leading to acute on chronic renal failure related to a combination of DM, diuretics, AFib/RVR with CHF exacerbation, and moderate aortic stenosis. -patient initially received 1 L of IV fluid bolus in the ER and some albumin for volume expansion -his creatinine worsen with poor urine output despite diuretics. -He has pulmonary edema. -Nephrology was in agreement with initiating dialysis and patient agreed. The e m assembler placed HD catheter 07/08/23 -HD performed yesterday and again today. Patient tolerated this well Continue HD per nephrology (4) Non-ST elevation myocardial infarction (NSTEMI): Code(s): I21.4 - Non-ST elevation (NSTEMI) myocardial infarction Status: Acute Assessment and Plan: NSTEMI present on admission with elevated troponins to 15. EKG showing AFib/RVR with (old) Left BBB. Cardiology consulted. CP yesterday and Trop was 4.2 -> 4.5 -> 3.6. EKG showing no change Plan for medical management. Not on ASA but on Warfarin. Lopressor held. Add statin? (5) Diabetes mellitus with chronic kidney disease: Qualifiers: Chronic kidney disease stage: stage 4 (severe) Diabetes mellitus mcc insulin use: with mcc use Diabetes mellitus type: type 2 Qualified Code(s): E11.22 - Type 2 diabetes mellitus with diabetic chronic kidney disease; N18.4 - Chronic kidney disease, stage 4 (severe); Z79.4 - correction (current) use of insulin Code(s): E11.22 - Type 2 diabetes mellitus with diabetic chronic kidney disease Status: Acute Assessment and Plan: A1c 6.8. The patient's blood glucose was reviewed on 07/09 Glucose remains well controlled. Continue AccuCheks covering with sliding scale. Hypoglycemia protocol available as needed. Continue to monitor (6) Aortic stenosis: Code(s): I35.0 - Nonrheumatic aortic (valve) stenosis Status: Acute Assessment and Plan: 07/06/23 Echo showing moderate . (7) Fever: Code(s): R50.9 - Fever, unspecified Status: Acute Assessment and Plan: P
[2023-07-09] MEDS: INSULIN ASPART (*BKC) 100 UNITS/ML SUB-Q (17:13)
[2023-07-09 17:22] LABS: Glucose Point of Care 205 mg/dl (65-105)
[2023-07-09 18:05] LABS: INR 2.2; Prothrombin Time 25.6 Seconds (11.1-14.7)
[2023-07-09] MEDS: HYOSCYAMINE SULFATE 0.0625 MG TABLET PO (18:06)
--- NOTE | 2023-07-09 18:12 | PC.NURSE ---
Spoke with Dr. Moyer regarding INR of 2.2. New order to stop heparin gtt.
[2023-07-09] MEDS: QUEtiapine FUMARATE 25 MG TABLET PO (20:05)
[2023-07-09] MEDS: MELATONIN 5 MG TABLET PO (20:05)
[2023-07-09] MEDS: METOPROLOL TARTRATE 12.5 MG TABLET PO (20:05)
[2023-07-09 23:27] LABS: Glucose Point of Care 157 mg/dl (65-105)
[2023-07-10] VITALS (36 sets, daily range): BP systolic 84–121; BP diastolic 62–87; PULSE 92–131; RESP 18–26; TEMP 3–37.7; O2SAT 96–100
--- NOTE | 2023-07-10 00:34 | PC.NURSE ---
Pt states that he wants to wear bipap, but he has removed bipap numerous times, reportedly in his sleep. Discussed with pt and his daughter concerns about pt removing bipap as his dialysis access is located in right IJ, pt may inadvertently remove dialysis catheter. Pt and daughter agreed to pt wearing mitt on right hand in attempt to avoid pulling out catheter. Left had remains free from restraint. Call light within reach of pt's left hand.
[2023-07-10] MEDS: AMIODARONE 360 MG/D5W 200 ML 360 MG/200 ML BAG 16.67 MG IV CONT ×2 (01:55→13:40)
[2023-07-10] MEDS: LEVOTHYROXINE SODIUM 112 MCG TABLET PO (05:39)
[2023-07-10 05:42] LABS: Hematocrit 27.6 % (42.0-52.0); Mean Corpuscular HGB Conc 32.6 g/dl (32-36); Mean Corpuscular Hemoglobin 30.2 pg (26-34); Mean Corpuscular Volume 92.6 fl (80-100); Mean Platelet Volume 11.6 fl (7.4-10.4); Platelet Count Result 238 k/mm3 (150-375); Red Blood Count 2.98 M/mm3 (4.6-6.20); Red Cell Distribution Width 14.2 % (11.5-14.5); White Blood Count 9.6 K/mm3 (4.5-10.0)
[2023-07-10 05:51] LABS: INR 2.2; Prothrombin Time 26.4 Seconds (11.1-14.7)
[2023-07-10 05:56] LABS: Alanine Aminotransferase 18 U/L (6-50); Albumin Level 3.8 g/dL (3.5-5.1); Alkaline Phosphatase 98 U/L (38-126); Anion Gap 15 mmol/L (8-16); Aspartate Amino Transferase 20 U/L (17-59); Bilirubin,Total 0.6 mg/dL (0.2-1.3); Blood Urea Nitrogen 60 mg/dL (9-20); Calcium 8.6 mg/dL (8.4-10.2); Carbon Dioxide 22 mmol/L (22-30); Chloride 98 mmol/L (98-107); Estimated CRCL calculation 12 ml/min; Estimated Glomerular Filt Rate 12; Glucose 156 mg/dL (65-110); Magnesium 2.2 mg/dL (1.6-2.3); Potassium 3.9 mmol/L (3.4-5.0); Sodium 135 mmol/L (137-145)
--- NOTE | 2023-07-10 08:15 | WPDINTPN ---
Progress Note: A&P Assessment and Plan (1) Atrial fibrillation with RVR: Code(s): I48.91 - Unspecified atrial fibrillation Status: Acute Assessment and Plan: 07/05: Patient presented with shortness of breath and palpitations 2-3 days prior to admission -patient was found to be in atrial fibrillation with rapid ventricular response with heart rates in the 150s to 160s in the ER -patient was initially started on Cardizem bolus and infusion after which she dropped his blood pressures. Cardizem infusion was discontinued and patient was started on amiodarone bolus and amiodarone infusion. - cardiology was consulted -07/06: Successfully cardioverted this morning with sabianism of sinus rhythm using 200 joules synchronous biphasic energy. He converted back to sinus rhythm with type 1 av block. Patient continued on p.o. amiodarone and metoprolol was resumed -2D echo as below 07/08 patient was on warfarin but patient was given FFP for dialysis catheter placement. Post procedure patient's INR was below 2 and was was started on heparin infusion. -INR this morning is in therapeutic range at 2.1. I will Will recheck INR in 12 hours and if it is adequate Will discontinue heparin infusion 07/09 patient went back into AFib with RVR this morning.. Potassium replacement ordered. Will resume amiodarone IV infusion. Bolus followed by infusion is ordered 07/10 -continues to be in AFib with RVR although rate is improved. Continue amiodarone infusion (2) Acute respiratory failure: Code(s): J96.00 - Acute respiratory failure, unspecified whether with hypoxia or hypercapnia Status: Acute Assessment and Plan: Acute respiratory failure secondary to pulmonary edema which is multifactorial secondary to congestive heart failure, aortic stenosis, acute on chronic kidney disease and AFib with RVR Most recent chest x-ray reviewed and shows pulmonary edema small effusions and cardiomegaly Patient has been on lasix but urine output has been poor hence he was started on hemodialysis. Continue daily hemodialysis to remove fluid Patient refuses to wear BiPAP. Continue BiPAP p.r.n. and at night as as long as he is willing to wear it Continue Vapotherm for now. wean FiO2 as tolerated which is currently 30-35% % We have discussed possibility of him needing intubation mechanical ventilation and patient clearly stated that he does not wish to go on a ventilator and any cause and wants to be DNI. (3) Acute on chronic renal failure: Code(s): N17.9 - Acute kidney failure, unspecified; N18.9 - Chronic kidney disease, unspecified Status: Acute Assessment and Plan: Patient has significant chronic kidney disease at baseline and now the renal function has worsened leading to acute on chronic renal failure. This is related to a combination of diabetes, diuretics, AFib RVR with CHF exacerbation, moderate aortic stenosis -patient initially received 1 L of IV fluid bolus in the ER and some albumin for volume expansion -07/08 his creatinine continues to worsen and is at 5.6 this morning. He continues to have poor urine output despite diuretics. He has pulmonary edema. Spoke to Dr. Afia lentz with nephrology who is also patient's outpatient senior backup administrator was in agreement to initiate with dialysis the patient agrees. I spoke to patient regarding pros and cons of initiating hemodialysis. Patient wants to proceed with dialysis as he feels that that may give him a chance to get better and go home. I spoke to patient regarding risks and benefits of temporary dialysis catheter placement. Patient and his daughter verbalized understanding and agreed to proceed and consented for the procedure. Patient was transfused with 2 units of FFP and a temporary dialysis catheter was placed. Patient underwent hemodialysis and 2 L fluid was removed without any complication. 07/09-patient Received 2nd session and approximately 2 L fluid was removed 07/10 -continue hemodialysis
[2023-07-10] MEDS: METOPROLOL TARTRATE 12.5 MG TABLET PO ×2 (08:29→20:41)
[2023-07-10] MEDS: AMIODARONE HCL 200 MG TABLET 400 MG PO (08:29)
[2023-07-10] MEDS: cefTRIAXone 2 GM/NS 100 ML 2 GM/100 ML BAG IVPB (08:29)
[2023-07-10] MEDS: FINASTERIDE 5 MG TABLET PO (08:52)
--- NOTE | 2023-07-10 08:57 | PM.IMPN ---
Progress Note: A&P Assessment and Plan (1) Atrial fibrillation with RVR: Code(s): I48.91 - Unspecified atrial fibrillation Status: Acute Assessment and Plan: 07/05: Patient presented with shortness of breath and palpitations and found to be in AFib/RVR (150s to 160s in the ER) - patient was initially started on Cardizem bolus and infusion but caused HoTN; Cardizem stopped and changed to IV amiodarone - cardiology was consulted - Echo 07/06: EF 40-45%, septal WM abnormality, TAWNY, moderate and moderate pulmonary HTN. - 07/06: Successfully cardioverted with episcopal of sinus rhythm using 200 joules synchronous biphasic energy. - patient went back into AFib yesterday morning - INR therapeutic; Heparin drip started but stopped now. Metoprolol resumed Continue Warfarin Continue Amiodarone Discussed with specimen accessioner (2) Acute respiratory failure: Code(s): J96.00 - Acute respiratory failure, unspecified whether with hypoxia or hypercapnia Status: Acute Assessment and Plan: CXR on admission showing mild pulmonary edema. Acute respiratory failure secondary to pulmonary edema which is multifactorial secondary to CHF, aortic stenosis, acute on chronic kidney disease and AFib with RVR. Patient was on lasix but urine output has been poor Patient refusing to wear BiPAP at times Continue BiPAP p.r.n. and at night and continue Vapotherm for now. Discussed the possibility of intubation and mechanical ventilation but patient clearly stated his wishes and is now DNR Hypoxia improving with HD Wean FiO2 as tolerated (3) Acute on chronic renal failure: Code(s): N17.9 - Acute kidney failure, unspecified; N18.9 - Chronic kidney disease, unspecified Status: Acute Assessment and Plan: Patient has significant CKD at baseline and now the renal function has worsened leading to acute on chronic renal failure related to a combination of DM, diuretics, AFib/RVR with CHF exacerbation, and moderate aortic stenosis. -patient initially received 1 L of IV fluid bolus in the ER and some albumin for volume expansion -his creatinine worsen with poor urine output despite diuretics. -He has pulmonary edema. -Nephrology was in agreement with initiating dialysis and patient agreed. The specimen accessioner placed HD catheter 07/08/23 -HD performed 07/08 and 07/09. Patient had SOb with HD yesterday Continue HD per nephrology (4) Non-ST elevation myocardial infarction (NSTEMI): Code(s): I21.4 - Non-ST elevation (NSTEMI) myocardial infarction Status: Acute Assessment and Plan: NSTEMI present on admission with elevated troponins to 15. EKG showing AFib/RVR with (old) Left BBB. Cardiology consulted. Recurrent CP 07/08 and Trop was 4.2 -> 4.5 -> 3.6. EKG showing no change Plan for medical management. Not on ASA but on Warfarin. Lopressor resumed. Add statin and ASA (5) Diabetes mellitus with chronic kidney disease: Qualifiers: Chronic kidney disease stage: stage 4 (severe) Diabetes mellitus assisted insulin use: with assisted use Diabetes mellitus type: type 2 Qualified Code(s): E11.22 - Type 2 diabetes mellitus with diabetic chronic kidney disease; N18.4 - Chronic kidney disease, stage 4 (severe); Z79.4 - [facility] (current) use of insulin Code(s): E11.22 - Type 2 diabetes mellitus with diabetic chronic kidney disease Status: Acute Assessment and Plan: A1c 6.8. The patient's blood glucose was reviewed on 07/10 Glucose remains well controlled. Continue AccuCheks covering with sliding scale. Hypoglycemia protocol available as needed. Continue to monitor (6) Aortic stenosis: Code(s): I35.0 - Nonrheumatic aortic (valve) stenosis Status: Acute Assessment and Plan: 07/06/23 Echo showing moderate . (7) Fever: Code(s): R50.9 - Fever, unspecified Status: Acute Assessment and Plan: Patient with fevers beginning on 07/08.
[2023-07-10] MEDS: BISACODYL 10 MG SUPPOSITORY RECTAL (10:06)
[2023-07-10] MEDS: ATORVASTATIN 40 MG TABLET PO (10:06)
[2023-07-10] MEDS: ASPIRIN 81 MG CHEWABLE TABLET PO (10:06)
[2023-07-10] MEDS: PANTOPRAZOLE SODIUM IV 40 MG VIAL IV PUSH (10:06)
[2023-07-10 10:30] LABS: Influenza A QL RT-PCR Negative (Negative); Influenza B QL RT-PCR Negative (Negative); RSV RNA, RT-PCR Negative (Negative); SARS-CoV-2 RNA PCR Negative (Negative)
[2023-07-10 11:12] LABS: Glucose Point of Care 172 mg/dl (65-105)
--- NOTE | 2023-07-10 11:22 | PM.PNCARD ---
Progress Note: A&P Assessment and Plan (1) Atrial fibrillation with RVR: Code(s): I48.91 - Unspecified atrial fibrillation Status: Acute Assessment and Plan: Underwent successful cardioversion on 07/06 with yazdanism of sinus rhythm. However, reverted to Afib with RVR yesterday morning. He has been started on amiodarone which should be continued. Limited options for rate control as he is borderline hypotensive. Repeat DCCV not an appropriate option at this time as he has been made DNR. Continue Warfarin for anticoagulation with a goal INR of 2-3. (2) Congestive heart failure: Code(s): I50.9 - Heart failure, unspecified Status: Acute Assessment and Plan: Acute on chronic heart failure secondary to AFib with RVR, underlying CAD in setting of NSTEMI. Echocardiogram this admission with LVEF 40-45%, moderate . Volume management with dialysis. (3) Non-ST elevation myocardial infarction (NSTEMI): Code(s): I21.4 - Non-ST elevation (NSTEMI) myocardial infarction Status: Acute Assessment and Plan: He had some chest burning with RVR. His non ST-elevation myocardial infarction is likely secondary to his AFib with RVR and secondary demand ischemia. Troponin increased to 15. Stabilize clinically with further ischemic workup as appropriate. (4) Diabetes mellitus with chronic kidney disease: Qualifiers: Diabetes mellitus type: type 2 Diabetes mellitus fpc insulin use: with tank terminal gauger use Chronic kidney disease stage: stage 4 (severe) Qualified Code(s): E11.22 - Type 2 diabetes mellitus with diabetic chronic kidney disease; N18.4 - Chronic kidney disease, stage 4 (severe); Z79.4 - continuous churn buttermaker (current) use of insulin Code(s): E11.22 - Type 2 diabetes mellitus with diabetic chronic kidney disease Status: Acute Assessment and Plan: On HD (5) Aortic stenosis: Code(s): I35.0 - Nonrheumatic aortic (valve) stenosis Status: Acute Assessment and Plan: Moderate on echo. (6) Chronic anticoagulation: Code(s): Z79.01 - continuous churn buttermaker (current) use of anticoagulants Status: Acute Assessment and Plan: Continue Warfarin with INR goal of 2-3. Check INR daily Plan Recommendations/plan discussed with Hot Dipper. Subjective Date/time seen: 07/10/23 11:22 Interval history: Reason for visit: Atrial fibrillation with RVR. HPI: Patient is an 87-year-old male patient Dr. Sesay who has a history of paroxysmal atrial fibrillation, CHF, aortic stenosis, cardiomyopathy, CKD, ascending aortic aneurysm and hypertension.? He has been maintained on amiodarone but has had some breakthrough AFib and has been cardioverted at least twice in the past.? He had been riding a stationary bike up until .? He noticed his heart rate spiking up recently and he has been increasingly more short of breath.? Over the past couple days he has been very short of breath with almost any activity and even with talking.? He also has notices heart rate at home would go up to 140 or even above and dropped back down and go back up rapidly.? He has been having some burning type of chest pain in his upper chest also.? He came to hospital for further evaluation.? He was found to be in atrial fibrillation with rapid ventricular response heart rate of nearly 160 beats per minute.? Troponins are also elevated.? He was started on amiodarone drip and heart rate is better albeit still fast.? He is on warfarin for anticoagulation.? He denies any syncope, presyncope, paroxysmal nocturnal dyspnea orthopnea. Date of service 07/06: Patient remains intermittent new relatively hypotensive on high-flow nasal cannula FiO2 80%. He remains refractory in AFib with RVR heart rates in the 130 despite continuous amiodarone infusion and amiodarone bolus. He has received IV Lasix for heart failure as well. Decision has been made to proceed with cardioversion today due to concern for h
--- NOTE | 2023-07-10 11:59 | P.PNNP_ITS ---
Progress Note: A&P Assessment and Plan (1) JOHNATHAN (acute kidney injury): Code(s): N17.9 - Acute kidney failure, unspecified Status: Acute Assessment and Plan: * multifactorial etiology: * Afib with RVR * NSTEMI * CHF * aortic stenosis * hemodynamic instability/relative hypotension * element of disease progression * initiated on [employer]/dialysis * HD yesterday and day before yesterday * HD today * follow electrolytes, volume status, and clearance (2) Chronic kidney disease, stage IV (severe): Code(s): N18.4 - Chronic kidney disease, stage 4 (severe) Status: Chronic Assessment and Plan: * baseline creatinine runs ~ 2.8 - 3.5mg/dl but has fluctuated to extremes in the past (usually due to adjustent in diuretic therapy) * due to CHF (and associated need for diuretics), hypertension, hypetension, diabetes and age-related change based on outpatient evaluation * he does have known renal cell carcinoma as well which did not really seem to play much role with his overall kidney function for the last few years (3) Acute respiratory failure: Code(s): J96.00 - Acute respiratory failure, unspecified whether with hypoxia or hypercapnia Status: Acute Assessment and Plan: * secondary to pulmonary edema likely precipitated by afib with RVR, CHF, NSTEMI, aortic stenosis, and worsening renal dysfunction * higher dose diuretics started with limited response -- discontinued * BiPAP support PRN * fluid removal as tolerated with dialysis * follow I/Os, daily weights, and respiratory status (4) Non-ST elevation myocardial infarction (NSTEMI): Code(s): I21.4 - Non-ST elevation (NSTEMI) myocardial infarction Status: Acute Assessment and Plan: * as noted by trend of troponins * likely triggered by afib with RVR and associated demand ischemia * on anticoagulation already * Cardiology following (5) Atrial fibrillation with RVR: Code(s): I48.91 - Unspecified atrial fibrillation Status: Acute Assessment and Plan: * as noted on presentation * s/p cardioversion (on 07/07/23) * rate control strategy - back in Afib and on amiodarone gtt * on coumadin (6) Urinary tract infection: Code(s): N39.0 - Urinary tract infection, site not specified Status: Acute Assessment and Plan: * presumed source of recurrent fevers * UA highly suggestive * follow-up on blood and urine cultures * on antibiotics (7) Diabetes mellitus with chronic kidney disease: Qualifiers: Diabetes mellitus type: type 2 Diabetes mellitus group home insulin use: with group home use Chronic kidney disease stage: stage 4 (severe) Qualified Co de(s): E11.22 - Type 2 diabetes mellitus with diabetic chronic kidney disease; N18.4 - Chronic kidney disease, stage 4 (severe); Z79.4 - care home (current) use of insulin Code(s): E11.22 - Type 2 diabetes mellitus with diabetic chronic kidney disease Status: Acute Assessment and Plan: * follow accu-cheks * glycemic control per hospitalists/news camera person Will continue to follow. Subjective Date/time seen: 07/10/23 11:59 Interval history: Follow-up for acute kidney injury/acute renal failure on chronic kidney disease. Tolerated dialysis treatment yesterday morning withoout any issue or problems; continues to have low grade fevers and able to maintain oxygen saturations with high flow nasal cannula; on amiodarone gtt for Afib; reports that he feels pretty good at the time of my visit; BP on the
--- NOTE | 2023-07-10 11:59 | PM.PNNEP ---
Progress Note: A&P Assessment and Plan (1) JOHNATHAN (acute kidney injury): Code(s): N17.9 - Acute kidney failure, unspecified Status: Acute Assessment and Plan: multifactorial etiology: Afib with RVR NSTEMI CHF aortic stenosis hemodynamic instability/relative hypotension element of disease progression initiated on [employer] [facility]/dialysis HD yesterday and day before yesterday HD today follow electrolytes, volume status, and clearance (2) Chronic kidney disease, stage IV (severe): Code(s): N18.4 - Chronic kidney disease, stage 4 (severe) Status: Chronic Assessment and Plan: baseline creatinine runs ~ 2.8 - 3.5mg/dl but has fluctuated to extremes in the past (usually due to adjustent in diuretic therapy) due to CHF (and associated need for diuretics), hypertension, hypetension, diabetes and age-related change based on outpatient evaluation he does have known renal cell carcinoma as well which did not really seem to play much role with his overall kidney function for the last few years (3) Acute respiratory failure: Code(s): J96.00 - Acute respiratory failure, unspecified whether with hypoxia or hypercapnia Status: Acute Assessment and Plan: secondary to pulmonary edema likely precipitated by afib with RVR, CHF, NSTEMI, aortic stenosis, and worsening renal dysfunction higher dose diuretics started with limited response -- discontinued BiPAP support PRN fluid removal as tolerated with dialysis follow I/Os, daily weights, and respiratory status (4) Non-ST elevation myocardial infarction (NSTEMI): Code(s): I21.4 - Non-ST elevation (NSTEMI) myocardial infarction Status: Acute Assessment and Plan: as noted by trend of troponins likely triggered by afib with RVR and associated demand ischemia on anticoagulation already Cardiology following (5) Atrial fibrillation with RVR: Code(s): I48.91 - Unspecified atrial fibrillation Status: Acute Assessment and Plan: as noted on presentation s/p cardioversion (on 07/07/23) rate control strategy - back in Afib and on amiodarone gtt on coumadin (6) Urinary tract infection: Code(s): N39.0 - Urinary tract infection, site not specified Status: Acute Assessment and Plan: presumed source of recurrent fevers UA highly suggestive follow-up on blood and urine cultures on antibiotics (7) Diabetes mellitus with chronic kidney disease: Qualifiers: Diabetes mellitus type: type 2 Diabetes mellitus 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 Subjective Date/time seen: 07/10/23 11:59 Interval history: Follow-up for acute kidney injury/acute renal failure on chronic kidney disease. Tolerated dialysis treatment yesterday morning withoout any issue or problems; continues to have low grade fevers and able to maintain oxygen saturations with high flow nasal cannula; on amiodarone gtt for Afib; reports that he feels pretty good at the time of my visit; BP on the soft side currently as well but asymptomatic. Exam Narrative: General: elderly but WD/WN male on BiPAP Heart: IRRR and tachycardic; no rub Lungs: coarse anteriorly but decreased at bases Abdomen: soft, nontender, nondistended, positive bowel sounds Extremities: no cyanosis or clubbing; no edema Skin: warm and intact Objective Data Vital Signs Vital Signs: Vital Signs Temp Pulse Resp BP Pulse Ox O2 Del Method
[2023-07-10] MEDS: ALBUMIN HUMAN 25% 12.5 GM/50ML 100 ML 50 GM (16:01)
--- NOTE | 2023-07-10 16:38 | PM.EVENT ---
Event Note Event Note Event Note: Patient seen/evaluated on hemodialysis -- he was seen at ~ 4:25PM. Appears to be tolerating treatment reasonably well. BP is a bit soft so fluid removal/ultrafiltration maybe limited. Family at bedside and discussed situation.
[2023-07-10 16:43] LABS: Glucose Point of Care 142 mg/dl (65-105)
[2023-07-10] MEDS: EPOETIN ALFA 10,000 UNITS/ML VIAL 10000 UNITS IV PUSH (18:28)
[2023-07-10] MEDS: WARFARIN (*PBKC) 5 MG TABLET PO (18:35)
[2023-07-10] MEDS: QUEtiapine FUMARATE 25 MG TABLET PO (20:37)
[2023-07-10] MEDS: MELATONIN 5 MG TABLET PO (20:37)
[2023-07-10 20:49] LABS: Glucose Point of Care 165 mg/dl (65-105)
[2023-07-11] VITALS (20 sets, daily range): BP systolic 89–117; BP diastolic 66–82; PULSE 95–110; RESP 13–28; TEMP 35.5–36.4; O2SAT 90–100
[2023-07-11] MEDS: AMIODARONE 360 MG/D5W 200 ML 360 MG/200 ML BAG 16.67 MG IV CONT (01:45)
[2023-07-11 05:01] LABS: Hematocrit 26.9 % (42.0-52.0); Hemoglobin 8.8 g/dL (14.0-18.0); Mean Corpuscular HGB Conc 32.7 g/dl (32-36); Mean Corpuscular Hemoglobin 30.7 pg (26-34); Mean Corpuscular Volume 93.7 fl (80-100); Mean Platelet Volume 11.2 fl (7.4-10.4); Platelet Count Result 236 k/mm3 (150-375); Red Blood Count 2.87 M/mm3 (4.6-6.20); Red Cell Distribution Width 14.5 % (11.5-14.5); White Blood Count 7.8 K/mm3 (4.5-10.0)
[2023-07-11 05:21] LABS: Alanine Aminotransferase 18 U/L (6-50); Albumin Level 3.9 g/dL (3.5-5.1); Alkaline Phosphatase 113 U/L (38-126); Anion Gap 15 mmol/L (8-16); Aspartate Amino Transferase 24 U/L (17-59); Bilirubin,Total 0.6 mg/dL (0.2-1.3); Blood Urea Nitrogen 43 mg/dL (9-20); Calcium 8.8 mg/dL (8.4-10.2); Carbon Dioxide 27 mmol/L (22-30); Chloride 97 mmol/L (98-107); Estimated CRCL calculation 15 ml/min; Estimated Glomerular Filt Rate 16; Glucose 149 mg/dL (65-110); Magnesium 2.2 mg/dL (1.6-2.3); Sodium 139 mmol/L (137-145)
[2023-07-11] MEDS: LEVOTHYROXINE SODIUM 112 MCG TABLET PO (06:24)
[2023-07-11 07:51] LABS: Glucose Point of Care 167 mg/dl (65-105)
--- NOTE | 2023-07-11 08:34 | PM.PNCARD ---
Progress Note: A&P Assessment and Plan (1) Paroxysmal atrial fibrillation: Code(s): I48.0 - Paroxysmal atrial fibrillation Status: Acute (2) Congestive heart failure: Code(s): I50.9 - Heart failure, unspecified Status: Acute Plan 87-year-old man with left ventricular dysfunction chronic atrial fib and some aortic valve disease who is doing poorly with renal failure and atrial fibrillation which is exacerbating his condition. Despite cardioversion and amiodarone treatment earlier this past week he reverted back to AFib relatively quickly. I am going to transition him from IV amiodarone to when or why gym and for rate control and as stated above had a discussion in the room today with the patient and his daughter about end of life issues/planning. Srinivas Her MD [facility] Subjective Date/time seen: Date of service: 07/11/23 08:34 Interval history: Reason for visit: Atrial fibrillation with RVR. HPI: Patient is an 87-year-old male patient Dr. Sesay who has a history of paroxysmal atrial fibrillation, CHF, aortic stenosis, cardiomyopathy, CKD, ascending aortic aneurysm and hypertension.? He has been maintained on amiodarone but has had some breakthrough AFib and has been cardioverted at least twice in the past.? He had been riding a stationary bike up until .? He noticed his heart rate spiking up recently and he has been increasingly more short of breath.? Over the past couple days he has been very short of breath with almost any activity and even with talking.? He also has notices heart rate at home would go up to 140 or even above and dropped back down and go back up rapidly.? He has been having some burning type of chest pain in his upper chest also.? He came to hospital for further evaluation.? He was found to be in atrial fibrillation with rapid ventricular response heart rate of nearly 160 beats per minute.? Troponins are also elevated.? He was started on amiodarone drip and heart rate is better albeit still fast.? He is on warfarin for anticoagulation.? He denies any syncope, presyncope, paroxysmal nocturnal dyspnea orthopnea. Date of service 07/06: Patient remains intermittent new relatively hypotensive on high-flow nasal cannula FiO2 80%. He remains refractory in AFib with RVR heart rates in the 130 despite continuous amiodarone infusion and amiodarone bolus. He has received IV Lasix for heart failure as well. Decision has been made to proceed with cardioversion today due to concern for heart failure status and relative hypotension related to AFib with RVR. Patient's daughter and granddaughter at bedside. Plan cardioversion and risks with associated sedation discussed at great length, all questions answered to their satisfaction. They verbalized understanding and agreed. Patient also agreed to proceed with cardioversion. Date of service 07/07: Remains in sinus rhythm since cardioversion. Patient states he feels okay this morning. He is tired, didn't get much sleep last night. He is now DNR/DNI. Date of service 07/08: Had some chest pain overnight. EKG unchanged. Troponin was checked, which was lower than before. He is currently without any chest pain. Plans are to start dialysis. Date of service 07/09/2023: Complaining of worsening shortness of breath today. Went back into AF RVR this morning. Date of service 07/10/2023: No acute events overnight. Continues to have shortness of breath on high flow O2 now with BiPAP overnight. He remains in AF RVR with rate in the 120's Date of service 07/11/2023: No significant events overnight. Continues to be in persistent AFib heart rate is 90s to 110. Conversation with patient and family about level of aggressiveness, ongoing dialysis etc. Exam Narrative: Awake alert oriented appears stated age Const: General: comfortable and no acute distress HENMT: Face/Nose/Sinus: Normal nares present Mouth: Yes moist mucous membranes Eyes: General: appeara
--- NOTE | 2023-07-11 09:06 | WPDINTPN ---
Progress Note: A&P Assessment and Plan (1) Atrial fibrillation with RVR: Code(s): I48.91 - Unspecified atrial fibrillation Status: Acute Assessment and Plan: 07/05: Patient presented with shortness of breath and palpitations 2-3 days prior to admission -patient was found to be in atrial fibrillation with rapid ventricular response with heart rates in the 150s to 160s in the ER -patient was initially started on Cardizem bolus and infusion after which she dropped his blood pressures. Cardizem infusion was discontinued and patient was started on amiodarone bolus and amiodarone infusion. - cardiology was consulted -07/06: Successfully cardioverted this morning with temple of sinus rhythm using 200 joules synchronous biphasic energy. He converted back to sinus rhythm with type 1 av block. Patient continued on p.o. amiodarone and metoprolol was resumed -2D echo as below 07/08 patient was on warfarin but patient was given FFP for dialysis catheter placement. Post procedure patient's INR was below 2 and was was started on heparin infusion. -INR this morning is in therapeutic range at 2.1. I will Will recheck INR in 12 hours and if it is adequate Will discontinue heparin infusion 07/09 patient went back into AFib with RVR this morning.. Potassium replacement ordered. Will resume amiodarone IV infusion. Bolus followed by infusion is ordered 07/10 -continues to be in AFib with RVR although rate is improved. Continue amiodarone infusion Cardiology plans to convert amiodarone infusion to p.o. amiodarone (2) Acute respiratory failure: Code(s): J96.00 - Acute respiratory failure, unspecified whether with hypoxia or hypercapnia Status: Acute Assessment and Plan: Acute respiratory failure secondary to pulmonary edema which is multifactorial secondary to congestive heart failure, aortic stenosis, acute on chronic kidney disease and AFib with RVR Most recent chest x-ray reviewed and shows pulmonary edema small effusions and cardiomegaly Patient has been on lasix but urine output has been poor hence he was started on hemodialysis. Continue daily hemodialysis to remove fluid Patient refuses to wear BiPAP. Continue BiPAP p.r.n. and at night as as long as he is willing to wear it Continue Vapotherm for now. wean FiO2 as tolerated which is currently 30-35% % Incentive spirometry We have discussed possibility of him needing intubation mechanical ventilation and patient clearly stated that he does not wish to go on a ventilator and any cause and wants to be DNI. (3) Acute on chronic renal failure: Code(s): N17.9 - Acute kidney failure, unspecified; N18.9 - Chronic kidney disease, unspecified Status: Acute Assessment and Plan: Patient has significant chronic kidney disease at baseline and now the renal function has worsened leading to acute on chronic renal failure. This is related to a combination of diabetes, diuretics, AFib RVR with CHF exacerbation, moderate aortic stenosis -patient initially received 1 L of IV fluid bolus in the ER and some albumin for volume expansion -07/08 his creatinine continues to worsen and is at 5.6 this morning. He continues to have poor urine output despite diuretics. He has pulmonary edema. Spoke to Dr. Afia lentz with nephrology who is also patient's outpatient fishery biologist was in agreement to initiate with dialysis the patient agrees. I spoke to patient regarding pros and cons of initiating hemodialysis. Patient wants to proceed with dialysis as he feels that that may give him a chance to get better and go home. I spoke to patient regarding risks and benefits of temporary dialysis catheter placement. Patient and his daughter verbalized understanding and agreed to proceed and consented for the procedure. Patient was transfused with 2 units of FFP and a temporary dialysis catheter was placed. Patient underwent hemodialysis and 2 L fluid was removed without any complication. 07/09-patient
--- NOTE | 2023-07-11 09:09 | PM.IMPN ---
Progress Note: A&P Assessment and Plan (1) Atrial fibrillation with RVR: Code(s): I48.91 - Unspecified atrial fibrillation Status: Acute Assessment and Plan: 07/05: Patient presented with shortness of breath and palpitations and found to be in AFib/RVR (150s to 160s in the ER) - patient was initially started on Cardizem bolus and infusion but caused HoTN; Cardizem stopped and changed to IV amiodarone - cardiology was consulted - Echo 07/06: EF 40-45%, septal WM abnormality, TAWNY, moderate and moderate pulmonary HTN. - 07/06: Successfully cardioverted with pentecostal of sinus rhythm - patient went back into AFib 07/09 - INR therapeutic; Heparin drip started but stopped now. Metoprolol resumed. Amiodarone drip resumed and HR better controlled. Now switched to oral Amio Continue Warfarin Continue Amiodarone and metoprolol Discussed with pianos and organs salesperson (2) Acute respiratory failure: Code(s): J96.00 - Acute respiratory failure, unspecified whether with hypoxia or hypercapnia Status: Acute Assessment and Plan: CXR on admission showing mild pulmonary edema. Acute respiratory failure secondary to pulmonary edema which is multifactorial secondary to CHF, aortic stenosis, acute on chronic kidney disease and AFib with RVR. Patient was on lasix but urine output was poor Patient refusing to wear BiPAP at times Continue BiPAP p.r.n. and at night and continue Vapotherm for now. Discussed the possibility of intubation and mechanical ventilation but patient clearly stated his wishes and is now DNR Patient wishing to discuss end-of-life. Recommend he speak with his family but he declines and wants 'to end it'. Patient may be overly tired and recommend resting for now and will try to make for quiet environment. Will revisit this discussion later. Hypoxia improving with HD Wean FiO2 as tolerated Discussed with pianos and organs salesperson (3) Acute on chronic renal failure: Code(s): N17.9 - Acute kidney failure, unspecified; N18.9 - Chronic kidney disease, unspecified Status: Acute Assessment and Plan: Patient has significant CKD at baseline and now the renal function has worsened leading to acute on chronic renal failure related to a combination of DM, diuretics, AFib/RVR with CHF exacerbation, and moderate aortic stenosis. -patient initially received 1 L of IV fluid bolus in the ER and some albumin for volume expansion -his creatinine worsen with poor urine output despite diuretics. -He had pulmonary edema. -Nephrology was in agreement with initiating dialysis and patient agreed. The pianos and organs salesperson placed HD catheter 07/08/23 -HD performed 07/08, 07/09 and 07/10. BP limited fluid removal on 07/10 Continue HD per nephrology (4) Non-ST elevation myocardial infarction (NSTEMI): Code(s): I21.4 - Non-ST elevation (NSTEMI) myocardial infarction Status: Acute Assessment and Plan: NSTEMI present on admission with elevated troponins to 15. EKG showing AFib/RVR with (old) Left BBB. Cardiology consulted. Recurrent CP 07/08 and Trop was 4.2 -> 4.5 -> 3.6. EKG showing no change Plan for medical management. Continue ASA, Lopressor, statin (5) Diabetes mellitus with chronic kidney disease: Qualifiers: Diabetes mellitus type: type 2 Diabetes mellitus terminal block assembler insulin use: with terminal block assembler use Chronic kidney disease stage: stage 4 (severe) Qualified Code(s): E11.22 - Type 2 diabetes mellitus with diabetic chronic kidney disease; N18.4 - Chronic kidney disease, stage 4 (severe); Z79.4 - FPC (current) use of insulin Code(s): E11.22 - Type 2 diabetes mellitus with diabetic chronic kidney disease Status: Acute Assessment and Plan: A1c 6.8. The patient's blood glucose was reviewed on 07/11 Glucose remains well controlled. Continue AccuCheks covering with sliding scale. Hypoglycemia protocol available as needed. Continue to monitor (6) Aortic stenosis: Code(s):
[2023-07-11] MEDS: MORPHINE SULFATE (*CRX) 2 MG/ML INJ IV PUSH ×2 (10:25→15:24)
--- NOTE | 2023-07-11 13:22 | PCOTNOTE ---
Attempted to see patient. Per RN patient going hospice. Discharging therapy orders.
--- NOTE | 2023-07-11 14:25 | PCPTNOTE ---
Patient has physical therapy order, but patient going to hospice, reported that order is going to be cancelled.
[2023-07-11] MEDS: LORazepam INJ (*CRX) 2 MG/ML VIAL 0.5 MG IV PUSH (15:29)
[2023-07-11] MEDS: polyethylene glycoL 3350 17 GM POWD.PACK PO (15:32)
--- NOTE | 2023-07-11 20:55 | PC.NURSE ---
This patient, Avery Lopez, was transferred to [facility] on 07/11/23 at 2055. Personal belongings sent with patient. Report given to CHACHO Boogie. Appropriate documentation sent with patient.
[2023-07-11] MEDS: AMIODARONE HCL 200 MG TABLET 400 MG PO (21:39)
[2023-07-11] MEDS: METOPROLOL TARTRATE 12.5 MG TABLET PO (21:41)
[2023-07-11] MEDS: MELATONIN 5 MG TABLET PO (21:42)
[2023-07-11] MEDS: QUEtiapine FUMARATE 25 MG TABLET 50 MG PO (21:42)
[2023-07-11] MEDS: DOCUSATE SODIUM 100 MG CAPSULE PO (21:44)
[2023-07-12] MEDS: LORazepam INJ (*CRX) 2 MG/ML VIAL 0.5 MG IV PUSH ×2 (00:17→08:08)
[2023-07-12 00:40] VITALS: PULSE 122; RESP 24; O2SAT 94
[2023-07-12] MEDS: MORPHINE SULFATE (*CRX) 2 MG/ML INJ IV PUSH ×2 (01:14→08:08)
--- NOTE | 2023-07-12 01:28 | ADMGEN ---
This patient, Avery Lopez, was admitted to 3 [facility] Surg Room 310-01. Patient/family oriented to hospital policies and general routines including ID bracelet, bed and alarms, visiting hours, pain management, procedures, bathroom and other care routines, personal items, smoking policy, room service/diet, and visiting hours. Information on how to activate the Rapid Response Team has been discussed. Patient/Family are encouraged to report perceived risks to care and to ask questions if they do not understand what they are told or what they should do.
[2023-07-12 08:09] VITALS: PULSE 80
[2023-07-12] MEDS: AMIODARONE HCL 200 MG TABLET 400 MG PO (08:09)
[2023-07-12 08:11] VITALS: PULSE 80
[2023-07-12] MEDS: METOPROLOL TARTRATE 12.5 MG TABLET PO (08:11)
[2023-07-12] MEDS: polyethylene glycoL 3350 17 GM POWD.PACK PO (08:11)
[2023-07-12] MEDS: LEVOTHYROXINE SODIUM 112 MCG TABLET PO (08:11)
[2023-07-12] MEDS: DOCUSATE SODIUM 100 MG CAPSULE PO (08:21)
[2023-07-12 09:10] VITALS: O2SAT 94
[2023-07-12 10:00] VITALS: O2SAT 93
--- NOTE | 2023-07-12 10:17 | PM.IMPN ---
Progress Note: A&P Assessment and Plan (1) Acute respiratory failure: Code(s): J96.00 - Acute respiratory failure, unspecified whether with hypoxia or hypercapnia Status: Acute Assessment and Plan: CXR on admission showing mild pulmonary edema. Acute respiratory failure secondary to pulmonary edema which is multifactorial secondary to CHF, aortic stenosis, acute on chronic kidney disease and AFib with RVR. Patient was on lasix but urine output was poor Patient refusing to wear BiPAP at times Continue BiPAP p.r.n. and at night and continue Vapotherm for now. Discussed the possibility of intubation and mechanical ventilation but patient clearly stated his wishes and is now DNR Patient wishing to discuss end-of-life. Recommend he speak with his family but he declines and wants 'to end it'. Patient may be overly tired and recommend resting for now and will try to make for quiet environment. Will revisit this discussion later. Patient decided for comfort measures. He is unable to make decisions at this time. Family at bedside ant to make him comfortable and are agreeable with morphine drip. Start morphine gtt and advance prn medications (morphine and Ativan). Add scopolamine patch and Atropine drops. Suctioning as needed. Hospice to be reconsulted for possible inpatient hospice. (2) Atrial fibrillation with RVR: Code(s): I48.91 - Unspecified atrial fibrillation Status: Acute Assessment and Plan: 07/05: Patient presented with shortness of breath and palpitations and found to be in AFib/RVR (150s to 160s in the ER) - patient was initially started on Cardizem bolus and infusion but caused HoTN; Cardizem stopped and changed to IV amiodarone - cardiology was consulted - Echo 07/06: EF 40-45%, septal WM abnormality, TAWNY, moderate and moderate pulmonary HTN. - 07/06: Successfully cardioverted with buddhist of sinus rhythm - patient went back into AFib 07/09 - INR therapeutic; Heparin drip started but stopped now. Metoprolol resumed. Amiodarone drip resumed and HR better controlled. Now switched to oral Amio Warfarin stopped Continue Amiodarone and metoprolol as able (3) Acute on chronic renal failure: Code(s): N17.9 - Acute kidney failure, unspecified; N18.9 - Chronic kidney disease, unspecified Status: Acute Assessment and Plan: Patient has significant CKD at baseline and now the renal function has worsened leading to acute on chronic renal failure related to a combination of DM, diuretics, AFib/RVR with CHF exacerbation, and moderate aortic stenosis. -patient initially received 1 L of IV fluid bolus in the ER and some albumin for volume expansion -his creatinine worsen with poor urine output despite diuretics. -He had pulmonary edema. -Nephrology was in agreement with initiating dialysis and patient agreed. The fire alarm dispatcher placed HD catheter 07/08/23 -HD performed 07/08, 07/09 and 07/10. BP limited fluid removal on 07/10 HD stopped (4) Non-ST elevation myocardial infarction (NSTEMI): Code(s): I21.4 - Non-ST elevation (NSTEMI) myocardial infarction Status: Acute Assessment and Plan: NSTEMI present on admission with elevated troponins to 15. EKG showing AFib/RVR with (old) Left BBB. Cardiology consulted. Recurrent CP 07/08 and Trop was 4.2 -> 4.5 -> 3.6. EKG showing no change As above. (5) Diabetes mellitus with chronic kidney disease: Qualifiers: Chronic kidney disease stage: stage 4 (severe) Diabetes mellitus retirement insulin use: with retirement use Diabetes mellitus type: type 2 Qualified Code(s): E11.22 - Type 2 diabetes mellitus with diabetic chronic kidney disease; N18.4 - Chronic kidney disease, stage 4 (severe); Z79.4 - terminal block assembler (current) use of insulin Code(s): E11.22 - Type 2 diabetes mellitus with diabetic chronic kidney disease Status: Acute Assessment and Plan: A1c 6.8. No longer monitoring patient's blood glucose
[2023-07-12] MEDS: SCOPOLAMINE 1.5 MG PATCH TRANSDERM (10:30)
[2023-07-12] MEDS: ATROPINE SULFATE 1% OPHTH SOLN 5 ML BOTTLE 1 DROP SUBLINGUAL (10:32)
[2023-07-12] MEDS: MORPHINE SULFATE INJ (*CRX) 50 MG in SODIUM CHLORIDE 0.9% IV 95 ML IV CONT (10:44)
[2023-07-12] MEDS: LORazepam INJ (*CRX) 2 MG/ML VIAL 1 MG IV PUSH (11:27)
[2023-07-12 11:36] LABS: Hepatitis B Core Ab Total Nonreactive (Nonreactive)
--- NOTE | 2023-07-12 12:22 | PC.NURSE ---
[facility] H[facility]ice nurse here admitting patient. Patient during admission to [facility]. Hospitalist made aware.
--- NOTE | 2023-07-12 12:50 | PM.IMHP ---
H&P: HPI History of Present Illness Date/Time: 07/12/23 12:50 Chief Complaint: Uncontrolled dyspnea Narrative: This 87-year-old gentleman was admitted [facility] July 05 with atrial fibrillation with uncontrolled rate, acute on chronic congestive heart failure chronic and acute on chronic kidney injury. He did not respond well to diuresis he was cardioverted and placed on amiodarone drip. Because of fluid overload issues dialysis with initiated. He did not tolerated well with recurring atrial fibrillation. The patient opted to discontinue dialysis and his family was in agreement. He was placed on comfort measures 07/11 and hospice was consulted for admission for symptom management 07/12. He was comfortable 1 is morphine drip at 1 milligram/hour. Review of Systems Review of Systems: ROS unobtainable: Yes unobtainable due to medical condition PMFSH Past Medical History Medical History Anemia, unspecified Atherosclerosis of aorta Cancer of kidney Chronic kidney disease, stage 4 (severe) Chronic obstructive pulmonary disease, unspecified Congestive heart failure Echocardiogram in October 2021 showed normal LV chamber size and function with an EF estimated at 65 to 70%, moderately increased LV wall thickness, grade 2 diastolic dysfunction. Deficiency of other specified B group vitamins Enlarged prostate without lower urinary tract symptoms (luts) Essential (primary) hypertension Gout, unspecified Hypothyroidism Kidney stones Other hyperlipidemia Other specified crystal arthropathies, unspecified site Paroxysmal atrial fibrillation Thoracic aortic aneurysm, without rupture - CT of chest 4.6 cm Type 2 diabetes mellitus with diabetic neuropathy, unspecified Surgical History Surgical History History of back surgery History of laminectomy T7. Family History Family History Sibling Diabetes mellitus Mother Family history of Alzheimer's disease Family history of pancreatic cancer Other Family history of kidney stones Social History Social History (Updated 07/12/23 @ 12:56 by Jason Ozuna MD) Social History: Surrogate medical decision maker: Radha Lopez, daughter. Code status: DNR. Smoking packs per day: 0.5 Smoking cigarettes per day: 10.0 Years smoked: 30 Smoking pack-years: 15.00 Smoking status: Former smoker Tobacco type: cigarettes Smoking end date: 11/23/87 Alcohol intake: never Substance use: never Substance use type: does not use Lack of Transportation: No Lack of Food: Never True Current Housing: I Have Housing Concerned About Future Housing: No Difficulty Paying Gas/Electric Bills: No Difficulty Paying for Meds: No Currently Unemployed: No Education: High School Diploma/GED Difficulty w/ Childcare or Family Care: No Spiritual care concerns: No Meds Home Medications and Allergies Home Medications Medication Instructions Recorded Confirmed Type amiodarone 200 mg tablet 100 mg PO QAM 04/27/20 07/05/23 History furosemide 40 mg tablet 40 mg PO BID 12/12/20 07/05/23 History febuxostat 40 mg tablet 40 mg PO DAILY 11/16/21 07/05/23 History cyanocobalamin (vitamin B-12) 1,000 mcg PO DAILY 05/06/22 07/05/23 History 1,000 mcg tablet metolazone 2.5 mg tablet 2.5 mg PO DAILY 05/06/22 07/05/23 History metoprolol tartrate 25 mg tablet 25 mg PO BID 05/06/22 07/05/23 History doxazosin 2 mg tablet 2 mg PO DAILY #90 tabs 05/19/22 07/05/23 Rx simvastatin 10 mg tablet See Rx Instructions .Route 10/20/22 07/05/23 Rx .COMPLEX #90 tabs gabapentin 300 mg capsule See Rx Instructions PO .COMPLEX 11/04/22 07/05/23 History insulin glargine 100 unit/mL (3 22 unit (0.22 mL) subcut DAILY #15 12/05/22 07/05/23 Rx mL) subcutaneous pen (Basaglar mL KwikPen U-100 Insulin) warfarin 4 mg
--- NOTE | 2023-07-12 12:57 | PM.DDS ---
Discharge Summary Date and Time Date of : 07/12/23 Time of : 12:05 Provider Pronounced By: Barbara Khanna RN and Charlene Mcgee Probable Cause of Probable Cause of : Acute respiratory failure with hypoxia due to acute on chronic kidney failure due to acute on chronic diastolic congestive heart failure due to paroxysmal atrial fibrillation with uncontrolled rate with underlying acute non ST-elevation myocardial infarction. Summary Hospital Course: Mr. Lopez was admitted [facility] on July 05. He was found to have atrial fibrillation with rapid ventricular rate and subsequent dyspnea. He was in acute on chronic congestive heart failure with acute on chronic kidney injury. Troponins were elevated and declined downward consistent with non ST elevation myocardial infarction. EKG showed no ST abnormalities. Cardiology was consulted and he was managed conservatively. He underwent cardioversion and was treated with amiodarone IV. Because of volume issues that do not respond to conservative management dialysis was initiated. He did not tolerate this well with episodes recurrent atrial fibrillation. Because of this he opted to discontinue dialysis and on July 11 was placed on comfort measures with morphine drip 1 milligram/hour. He was transitioned to inpatient hospice service on July 12. He remained comfortable on his morphine drip. He soon after admission to inpatient hospice service. He was very comfortable with family at bedside. Additional Data Confirmation of as documented by pronouncing clinician: Pupillary Reflex, Palpable Pulses, Response to Stimuli, Heart Tones and Breath Sounds Name of Provider Notified: Dr. Liang Pearson Time Provider Notified: 12:15 Provider Requests Autopsy: No Family Requests Autopsy: No Energy Trading Analyst Notified: Yes Date [facility] Notified of : 07/12/23 Time [facility] Notified of : 12:43
== END 2023-07-12 11:29 | disposition hospice, inpatient (51) | DRG 280 ==
LOC: ANHED 09:54 → ANHICU 10:31 → ANH3MEDSUR 07-11 21:07
PROVIDERS: Internal Medicine; Internal Medicine Cardiovascular Disease; Internal Medicine Nephrology; Physician Assistant; Admitting Provider Internal Medicine; Emergency Provider Preventive Medicine Aerospace Medicine; PCP Family Medicine; Visit Provider Internal Medicine
PROC: 5A2204Z Restoration of Cardiac Rhythm, Single (ICD-10-PCS; principal; 2023-07-06 10:00)
DX: I48.0 Paroxysmal atrial fibrillation (principal); I21.4 Non-ST elevation (NSTEMI) myocardial infarction; I50.33 Acute on chronic diastolic (congestive) heart failure; J96.00 Acute respiratory failure, unspecified whether with hypoxia or hypercapnia; N17.9 Acute kidney failure, unspecified; N18.4 Chronic kidney disease, stage 4 (severe); I13.0 Hypertensive heart and chronic kidney disease with heart failure and stage 1 through stage 4 chronic kidney disease, or unspecified chronic kidney disease; E11.22 Type 2 diabetes mellitus with diabetic chronic kidney disease; Z20.822 Contact with and (suspected) exposure to COVID-19; I44.7 Left bundle-branch block, unspecified; I35.0 Nonrheumatic aortic (valve) stenosis; Z66 Do not resuscitate; D64.9 Anemia, unspecified; I42.9 Cardiomyopathy, unspecified; I70.0 Atherosclerosis of aorta; J44.9 Chronic obstructive pulmonary disease, unspecified; F41.9 Anxiety disorder, unspecified; N40.0 Benign prostatic hyperplasia without lower urinary tract symptoms; E78.49 Other hyperlipidemia; I71.20 Thoracic aortic aneurysm, without rupture, unspecified; E11.42 Type 2 diabetes mellitus with diabetic polyneuropathy; Z99.2 Dependence on renal dialysis; Z79.01 Long term (current) use of anticoagulants; Z87.442 Personal history of urinary calculi; Z85.528 Personal history of other malignant neoplasm of kidney; Z51.5 Encounter for palliative care; Z79.4 Long term (current) use of insulin; Z87.891 Personal history of nicotine dependence
CPT/HCPCS: 36415; 36430; 71045; 74176; 80053; 80074; 81001; 82948; 83036; 83735; 83880; 84100; 84145; 84439; 84443; 84484; 85025; 85027; 85610; 85730; 86704; 86706; 86900; 86901; 87040; 87086; 87340; 87637; 92960; 93005; 94002; 94003; 96361; 96365; 96366; 96375; 96376; 99285; A9270; C1751; C1752; C8929; C9113; G0257; G0378; J0282; J0696; J1644; J1815; J1940; J2060; J2270; J2704; J7030; J7040; J7050; P9017; P9047; Q4081; Q9957

== ENCOUNTER 2023-07-12 11:30 | HOS | payer OTHER, SELFPAY ==
--- NOTE | 2023-07-12 12:57 | HP_ITS ---
This report was moved to the correct visit on 07/14/2023. Original report was signed by Jason Ozuna MD on 07/12/23 1257. H&P: HPI History of Present Illness Date/Time: 07/12/23 12:50 Chief Complaint: Uncontrolled dyspnea Narrative: This 87-year-old gentleman was admitted [facility] July 05 with atrial fibrillation with uncontrolled rate, acute on chronic congestive heart failure chronic and acute on chronic kidney injury. He did not respond well to diuresis he was cardioverted and placed on amiodarone drip. Because of fluid overload issues dialysis with initiated. He did not tolerated well with recurring atrial fibrillation. The patient opted to discontinue dialysis and his family was in agreement. He was placed on comfort measures 07/11 and hospice was consulted for admission for symptom management 07/12. He was comfortable 1 is morphine drip at 1 milligram/hour. Review of Systems Review of Systems: ROS unobtainable: Yes unobtainable due to medical condition PMFSH Past Medical History Medical History Anemia, unspecified Atherosclerosis of aorta Cancer of kidney Chronic kidney disease, stage 4 (severe) Chronic obstructive pulmonary disease, unspecified Congestive heart failure Echocardiogram in October 2021 showed normal LV chamber size and function with an EF estimated at 65 to 70%, moderately increased LV wall thickness, grade 2 diastolic dysfunction. Deficiency of other specified B group vitamins Enlarged prostate without lower urinary tract symptoms (luts) Essential (primary) hypertension Gout, unspecified Hypothyroidism Kidney stones Other hyperlipidemia Other specified crystal arthropathies, unspecified site Paroxysmal atrial fibrillation Thoracic aortic aneurysm, without rupture - CT of chest 4.6 cm Type 2 diabetes mellitus with diabetic neuropathy, unspecified Surgical History Surgical History History of back surgery History of laminectomy T7. Family History Family History Sibling Diabetes mellitus Mother Family history of Alzheimer's disease Family history of pancreatic cancer Other Family history of kidney stones Social History Social History (Updated 07/12/23 @ 12:56 by Jason Ozuna MD) Social History: Surrogate medical decision maker: Radha Lopez, daughter. Code status: DNR. Smoking packs per day: 0.5 Smoking cigarettes per day: 10.0 Years smoked: 30 Smoking pack-years: 15.00 Smoking status: Former smoker Tobacco type: cigarettes Smoking end date: 11/23/87 Alcohol intake: never Substance use: never Substance use type: does not use Lack of Transportation: No Lack of Food: Never True Current Housing: I Have Housing Concerned About Future Housing: No Difficulty Paying Gas/Electric Bills: No Difficulty Paying for Meds: No Currently Unemployed: No Education: High School Diploma/GED Difficulty w/ Childcare or Family Care: No Spiritual care concerns: No Meds Home Medications and Allergies Home Medications Medication Instructions Recorded Confirmed Type amiodarone 200 mg tablet 100 mg PO QAM 04/27/20 07/05/23 History furosemide 40 mg tablet 40 mg PO BID 12/12/20 07/05/23 History febuxostat 40 mg tablet 40 mg PO DAILY 11/16/21 07/05/23 History cyanocobalamin (vitamin B-12) 1,000 mcg PO DAILY 05/06/22 07/05/23 History 1,000 mcg tablet metolazone 2.5 mg tablet 2.5 mg PO DAILY 05/06/22 07/05/23 History metoprolol tartrate 25 mg tablet 25 mg P
--- NOTE | 2023-07-12 13:00 | DS_ITS ---
This report was moved to the correct visit on 07/14/2023. Original report was signed by Jason Ozuna MD on 07/12/23 1300. Discharge Summary Date and Time Date of : 07/12/23 Time of : 12:05 Provider Pronounced By: Barbara Khanna RN and Charlene Mcgee Probable Cause of Probable Cause of : Acute respiratory failure with hypoxia due to acute on chronic kidney failure due to acute on chronic diastolic congestive heart failure due to paroxysmal atrial fibrillation with uncontrolled rate with underlying acute non ST- elevation myocardial infarction. Summary Hospital Course: Mr. Lopez was admitted [facility] on July 05. He was found to have atrial fibrillation with rapid ventricular rate and subsequent dyspnea. He was in acute on chronic congestive heart failure with acute on chronic kidney injury. Troponins were elevated and declined downward consistent with non ST elevation myocardial infarction. EKG showed no ST abnormalities. Cardiology was consulted and he was managed conservatively. He underwent cardioversion and was treated with amiodarone IV. Because of volume issues that do not respond to conservative management dialysis was initiated. He did not tolerate this well with episodes recurrent atrial fibrillation. Because of this he opted to discontinue dialysis and on July 11 was placed on comfort measures with morphine drip 1 milligram/hour. He was transitioned to inpatient hospice service on July 12. He remained comfortable on his morphine drip. He soon after admission to inpatient hospice service. He was very comfortable with family at bedside. Additional Data Confirmation of as documented by pronouncing clinician: Pupillary Reflex, Palpable Pulses, Response to Stimuli, Heart Tones and Breath Sounds Name of Provider Notified: Dr. Liang Pearson Time Provider Notified: 12:15 Provider Requests Autopsy: No Family Requests Autopsy: No Floor Trader Notified: Yes Date [facility] Notified of : 07/12/23 Time [facility] Notified of : 12:43 This report may have been done utilizing a voice recognition system. Attempts have been made to correct errors. However, there may be uncorrected grammatical, spelling, and recognition errors present. Report Initialized date/time: Jason Ozuna MD 07/12/23 / 1300 Electronically signed by: Jason Ozuna MD 07/12/23 1300 [facility]
== END 2023-07-12 12:05 | disposition expired | DRG 951 ==
LOC: ANH3MEDSUR 07-14 13:20
PROVIDERS: Admitting Provider Internal Medicine; PCP Family Medicine; Visit Provider Internal Medicine
DX: Z51.5 Encounter for palliative care (principal); J96.01 Acute respiratory failure with hypoxia; I21.4 Non-ST elevation (NSTEMI) myocardial infarction; I50.33 Acute on chronic diastolic (congestive) heart failure; N17.9 Acute kidney failure, unspecified; I13.0 Hypertensive heart and chronic kidney disease with heart failure and stage 1 through stage 4 chronic kidney disease, or unspecified chronic kidney disease; N18.4 Chronic kidney disease, stage 4 (severe); E11.22 Type 2 diabetes mellitus with diabetic chronic kidney disease; I48.0 Paroxysmal atrial fibrillation; D64.9 Anemia, unspecified; I70.0 Atherosclerosis of aorta; E03.9 Hypothyroidism, unspecified; E78.49 Other hyperlipidemia; J44.9 Chronic obstructive pulmonary disease, unspecified; I71.20 Thoracic aortic aneurysm, without rupture, unspecified; E11.42 Type 2 diabetes mellitus with diabetic polyneuropathy; Z66 Do not resuscitate; Z85.528 Personal history of other malignant neoplasm of kidney